=== PATIENT | female | born 1975 | race Caucasian/White ===

== ENCOUNTER 2016-12-20 13:03 | Emergency (ER) | payer BC ==
[2016-12-20] MEDS ORDERED: TRANDATE 20 MG/5 ML SYRINGE IV ONE ×2 (13:34→13:50)
[2016-12-20] MEDS ORDERED: Catapres 0.1 MG PO ONE (13:35)
--- NOTE | 2016-12-20 13:41 | ERPHSYRPT ---
- History of Present Illness Time Seen by Provider: 12/20/16 13:25 Source: patient Exam Limitations: clinical condition Patient Subjective Stated Complaint: PT STATES THAT SHE WAS ON HER WAY TO THE DENTIST STATED THAT SHE "I JUST DIDN'T FEEL RIGHT MY HEAD IS THROBBING,. I FELL LIKE IM GOING TO VOMIT AND HAVE PAIN IN MY SHOULDERS INTO MY LEFT ARM" PT STATES SHE DOES HAVE A HX OF HYPERTENSION BUT NO LONGER TAKES THOSE MEDS AT HOME. Triage Nursing Assessment: PT ALERT WARM AND DRY RESP EASY NON LABORED PT AMBULATED TO ROOM WITHOUT DIFFICULTY. Physician History: PATIENT WITH A HISTORY OF HYPOTHYROIDISM, TYPE 2 DIABETES AND HYPERTENSION COMPLAINS OF CHRONIC HEADACHES FOR MONTHS . PATIENT STATES HER BLOOD PRESSURE WAS ELEVATED AT HOME LAST WEEK, AND AT THE DENTIST OFFICE TODAY. PATIENT STATES THAT SHE HAS BEEN NONCOMPLIANT WITH BLOOD PRESSURE MEDICATION OVER THE PAST YEAR. HAS OCCASIONAL DYSPNEA. DENIES CHEST PAIN, DIAPHORESIS OR PALPITATIONS. Timing/Duration: week(s) Quality: throbbing Head Pain Location: global Severity of Pain-Max: moderate Severity of Pain-Current: moderate Recent Head Trauma: chronic headaches Modifying Factors: Improves With: other (NONCOMPLIANT WITH BLOOD PRESSURE MEDICATION) Associated Symptoms: dizziness, light-headedness Previous symptoms: same symptoms as today Allergies/Adverse Reactions: Iodinated Contrast Media - Oral and [Iodinated Contrast Media - IV Dye] Allergy (Mild, Verified 02/23/15 07:25) Hives acetaminophen [From Darvocet-N] Allergy (Verified 12/20/16 13:09) propoxyphene [From Darvocet-N] Allergy (Verified 12/20/16 13:09) shellfish derived Allergy (Verified 02/23/15 07:25) promethazine HCl [From Phenergan] Adverse Reaction (Unknown, Verified 02/23/15 07:25) syncopal, drops B/P Home Medications: Levothyroxine Sodium [Synthroid] 25 mcg PO DAILY 05/07/13 [History] Metformin HCl [Metformin HCl ER] 500 mg PO DAILY 05/07/13 [History] Venlafaxine HCl ER 75 mg [Effexor XR 75 MG] 75 mg PO DAILY 05/07/13 [ History] Norethindrone-Ethinyl Estrad [Ovcon-35 28 Tablet] 1 tab PO DAILY 02/23/15 [ History] Ethinyl Estradiol/Drospirenone [Ocella 3 mg-0.03 mg Tablet] 12/20/16 [History] Liraglutide [Victoza 2-Ruiz] 1.8 12/20/16 [History] Hx Tetanus, Diphtheria Vaccination/Date Given: Yes Hx Influenza Vaccination/Date Given: No Hx Pneumococcal Vaccination/Date Given: No Immunizations Up to Date: Yes - Review of Systems Constitutional: No Fever, No Chills Eyes: No Symptoms Ears, Nose, & Throat: No Symptoms Respiratory: No Cough, No Dyspnea Cardiac: No Symptoms, No Chest Pain, No Edema, No Syncope Abdominal/Gastrointestinal: No Symptoms, No Abdominal Pain, No Nausea, No Vomiting, No Diarrhea Genitourinary Symptoms: No Symptoms, No Dysuria Musculoskeletal: No Symptoms, No Back Pain, No Neck Pain Skin: No Symptoms, No Rash Neurological: No Symptoms, Dizziness, Headache, No Focal Weakness, No Sensory Changes Psychological: No Symptoms Endocrine: No Symptoms All Other Systems: Reviewed and Negative - Past Medical History Pertinent Past Medical History: Yes Neurological History: No Pertinent History ENT History: No Pertinent History Cardiac History: High Cholesterol Respiratory History: No Pertinent History Endocrine Medical History: Diabetes Type II, Hypothyroidism Musculoskeletal History: No Pertinent History GI Medical History: No Pertinent History History: No Pertinent History Psycho-Social History: No Pertinent History Female Reproductive Disorders: No Pertinent History Other Medical History: HX OF HYPERTENSION,HIGH CHOLESTEROL,TYPE 2 DIABETIC,. PCOS, - Past Surgical History Past Surgical History: Yes Neuro Surgical History: No Pertinent History Cardiac: No Pertinent History Respiratory: No Pertinent History Gastrointestinal: No Pertinent History Genitourinary: No Pertinent History Musculoskeletal: No Pertinent History Female Surgical History: Tubal Ligation, Other Other Surgical History: GALLBLADDER,BREAST REDUCTION,LAPS FOR OVARIAN CYST. - Social History Smoking Status: Current some day smoker Exposure to second hand smoke: Yes Drug Use: none Patient Lives Alone: No - Female History Hx Last Menstrual Period: NOW Hx Now: No - Nursing Vital Signs Nursing Vital Signs: Initial Vital Signs Temperature 98.1 F Temperature Source Oral Pulse Rate 89 Respiratory Rate 18 Blood Pressure [Right Arm] 128/92 Pain Intensity 0 - Physical Exam General Appearance: no apparent distress Eye Exam: PERRL/EOMI Ears, Nose, Throat Exam: normal ENT inspection, moist mucous membranes Neck Exam: normal inspection, supple, full range of motion, No meningismus Respiratory Exam: normal breath sounds, lungs clear Cardiovascular Exam: regular rate/rhythm, normal heart sounds, tachycardia Gastrointestinal/Abdominal Exam: soft, No tenderness, No distention Back Exam: normal inspection, normal range of motion Mental Status Exam: alert, oriented x 3, cooperative clinical documentation nurse Exam: normal speech, PERRL, No facial droop Coordination/Gait Exam: normal cerebellar function Motor/Sensory Exam: no motor deficit, no sensory deficit Skin Exam: normal color, warm, dry, No rash SpO2: 98 Oxygen Delivery: Room Air - Course EKG Interpreted by Me: RATE, Sinus Rhythm, NORMAL AXIS - Radiology Exams Chest X-ray Interpretation: Discussed w/ radiologist, Negative, No Pneumonia - CT Exams Head CT Interpretation: Discussed w/radiologist, No/Intracranial Hemorrhag Ordered Tests: Active Orders 24 hr Category Date Time Status Nutrition Technician STAT Care 12/20/16 13:32 Active EKG-ER Only STAT Care 12/20/16 13:32 Active IV Insertion STAT Care 12/20/16 13:32 Active CHEST 1 VIEW (PORTABLE) Stat Exams 12/20/16 13:32 Completed HEAD WITHOUT CONTRAST [CT] Stat Exams 12/20/16 13:33 Completed BMP Stat Lab 12/20/16 13:55 Completed CBC W DIFF Stat Lab 12/20/16 13:55 Completed TROPONIN Q3H Lab 12/20/16 13:55 Completed TROPONIN Q3H Lab 12/20/16 16:45 Ordered TROPONIN Q3H Lab 12/20/16 19:45 Ordered TROPONIN Q3H Lab 12/20/16 22:45 Ordered TROPONIN Q3H Lab 12/21/16 01:45 Ordered Medication Summary Generic Name Dose Route Start Last Admin Trade Name Freq PRN Reason Stop Dose Admin Sodium Chloride 1,000 mls @ 50 mls/hr 12/20/16 13:45 12/20/16 13:57 Sodium Chloride 0.9% 1000 Ml IV 01/19/17 13:44 50 mls/hr .Q20H ETTA Administration Discontinued Medications Generic Name Dose Route Start Last Admin Trade Name Freq PRN Reason Stop Dose Admin Clonidine 0.1 mg 12/20/16 13:35 12/20/16 13:56 Catapres 0.1 Mg PO 12/20/16 13:36 0.1 mg STAT ONE Administration Clonidine Confirm 12/20/16 13:50 Catapres 0.1 Mg Administered 12/20/16 13:51 Dose 0.1 mg .ROUTE .STK-MED ONE Labetalol HCl 10 mg 12/20/16 13:34 12/20/16 13:57 Trandate 20 Mg/5 Ml Syringe IV 12/20/16 13:35 Not Given STAT ONE Labetalol HCl Confirm 12/20/16 13:50 Trandate 20 Mg/5 Ml Syringe Administered 12/20/16 13:51 Dose 20 mg IV .STK-MED ONE Lab/Rad Data: Laboratory Result Diagrams 12/20/16 13:55 12/20/16 13:55 Laboratory Results 12/20/16 12/20/16 12/20/16 Range/Units 13:55 13:55 13:55 WBC 7.8 (4.0-10.5) K/mm3 RBC 4.63 (4.1-5.4) M/mm3 Hgb 12.0 (12.0-16.0) gm/dl Hct 37.7 (35-47) % MCV 81.4 (78-100) fl MCH 25.9 L (26-32) pg MCHC 31.8 L (32-36) g/dl RDW 16.9 H (11.5-14.0) % Plt Count 390 (150-450) K/mm3 MPV 9.0 (6-9.5) fl Gran % 52.9 (36.0-66.0) % Lymphocytes % 34.6 (24.0-44.0) % Monocytes % 9.3 (0.0-12.0) % Eosinophils % 2.8 (0.00-5.0) % Basophils % 0.4 (0.0-0.4) % Basophils # 0.03 (0-0.4) Sodium 139 (136-145) mEq/L Potassium 3.8 (3.5-5.1) mEq/L Chloride 104 (98-107) mEq/L Carbon Dioxide 25.1 (21-32) mEq/L Anion Gap 13.8 (5-15) MEQ/L BUN 8 L (9-20) mg/dL Creatinine 0.77 (0.55-1.30) mg/dl Estimated GFR > 60 ML/MIN Glucose 94 (70-110) MG/DL Calcium 9.1 (8.5-10.1) mg/dL Troponin I < 0.017 (0.000-0.056) ng/ml - Progress Progress: improved Progress Note: 12/20/16 13:44 PATIENT ADMINISTERED IV FLUIDS NORMAL SALINE AT 50MG/HR, CATAPRES 0.1 MG ORALLY. 12/20/16 THE BLOOD PRESSURE IMPROVED TO BP 129/73 Counseled pt/family regarding: lab results, diagnosis, need for follow-up, rad results - Departure Time of Disposition: 16:00 Departure Disposition: Home Clinical Impression: HYPERTENSION, ACUTE CEPHALGIA Condition: Stable Critical Care Time: No Additional Instructions: BEGIN LISINOPRIL 10MG DAILY UNTIL EVALUATED BY FAMILY PHYSICIAN. CALL OFFICE FOR APPOINTMENT TODAY. Prescriptions: Lisinopril 10 mg [Zestril 10 MG] 10 mg PO DAILY #30 tablet
[2016-12-20] MEDS ORDERED: Sodium Chloride 0.9% 1000 ML 1,000 ML IV SCH (13:45)
[2016-12-20] MEDS ORDERED: Catapres 0.1 MG ONE (13:50)
[2016-12-20] MEDS ORDERED: Sodium Chloride 0.9% 1000 ML 1,000 ML ONE (13:50)
[2016-12-20 14:01] LABS: BASOPHIL % 0.4 % (0.0-0.4); Eosinophil % 2.8 % (0.00-5.0); Granulocytes % 52.9 % (36.0-66.0); Lymphocytes % 34.6 % (24.0-44.0); Mean Cell Volume 81.4 fl (78-100); Mean Corpuscular Hemoglobin 25.9 pg (26-32); Monocytes % 9.3 % (0.0-12.0); Platelet Count 390 K/mm3 (150-450); Red Blood Count 4.63 M/mm3 (4.1-5.4); Red Cell Distribution Width 16.9 % (11.5-14.0); White Blood Count 7.8 K/mm3 (4.0-10.5)
[2016-12-20 14:21] LABS: ANION GAP 13.8 MEQ/L (5-15); BLOOD UREA NITROGEN 8 mg/dL (9-20); CHLORIDE 104 mEq/L (98-107); Carbon Dioxide 25.1 mEq/L (21-32); Glucose 94 MG/DL (70-110); Potassium 3.8 mEq/L (3.5-5.1); SODIUM 139 mEq/L (136-145)
[2016-12-20 14:35] VITALS: PULSE 89
--- NOTE | 2016-12-20 15:18 | XRAY ---
Exam: CT of the head without IV contrast from 12/20/2016. CTDI: 68.81 Comparison: CT of brain without IV contrast from 05/07/2013. Indication: Nausea, bad headache, pain in neck and shoulders, high blood pressure. Technique. Non-IV contrast axial images were obtained through the brain. Reconstructed coronal and sagittal images were created and reviewed. The ventricles are of normal size. No focal mass effect or midline shift is seen. The patel matter-white matter interfaces appear unremarkable. No acute interval cranial parenchymal hemorrhage, subarachnoid hemorrhage, or abnormal extracerebral fluid collection is seen. No low attenuation infarct is seen within a major territorial vascular distribution. The cortical sulci and basilar cisterns appear unremarkable. The calvarium of the skull appears intact. There is some minimal nonspecific mucosal thickening within the inferior aspect of the left ethmoid sinus and posterior sphenoid sinus representing no change. Otherwise, the visualized paranasal sinuses and mastoid air cells appear unremarkable. Impression: 1. No acute intracranial hemorrhage or other acute intracranial process is seen. 2. Minimal chronic mucosal thickening is seen within the left ethmoid sinus and posterior margin of the sphenoid sinus in retrospect. This is unchanged from 05/07/2013. No paranasal sinus air-fluid levels are seen.
--- NOTE | 2016-12-20 15:20 | XRAY ---
Exam: AP upright portable chest film from 1414 hrs. on 12/20/2016. Comparison: None. Indication: Dyspnea, high blood pressure. Findings: The heart size and contour are normal. The grace and mediastinal structures appear unremarkable. The lungs are adequately inflated. No infiltrates, vascular congestion, pneumothorax, or pleural fluid is seen. The bones appear intact. Impression: 1. No acute cardiopulmonary disease is seen.
[2016-12-20 15:55] VITALS: O2SAT 98
[2016-12-20 15:59] VITALS: BP 129/73
== END 2016-12-20 16:13 | disposition home or self-care (01) ==
LOC: ED 13:03
DX: I10 Essential (primary) hypertension (principal); R51 Headache; E03.9 Hypothyroidism, unspecified; E11.9 Type 2 diabetes mellitus without complications; R42 Dizziness and giddiness; Z79.899 Other long term (current) drug therapy; Z79.84 Long term (current) use of oral hypoglycemic drugs
CPT/HCPCS: 36000; 36415; 70450; 71010; 80048; 84484; 85025; 93005; 93041; 96365; 96366; 96374; 99285; A9270-GY

== ENCOUNTER 2019-08-07 13:34 | Emergency (ER) | payer BC ==
--- NOTE | 2019-08-07 13:54 | ERPHSYRPT ---
- History of Present Illness Time Seen by Provider: 08/07/19 13:51 Source: patient, family (male significant other) Exam Limitations: no limitations Patient Subjective Stated Complaint: pt here for chest pain to left side of chest that radiates to left shoulder and neck, she states hurts worse with deep breath, no fever, no sob , she states it was a sudden onset now Triage Nursing Assessment: pt alert, resp easy, grimacing with a cough, chest clear, abd soft, no edema Physician History: Pt is here with c/c of chest pain into the left shoulder and left side of her neck which started earlier today. Pt notes that she has a strong family history of heart disease. She herself has a PMEDHX of HTN, NIDDM and had taken a med up until 4 weeks ago that made her vomit daily. Pt was taken off of this med. Pt notes that she had loose stools daily. Pt does not have a history of low potassium in the past. Pt was not really short of breath. Pt denies having a fever or cough. Timing/Duration: today, day(s) (5) Activities at Onset: none Severity of Dyspnea-Max: moderate Severity of Dyspnea-Current: moderate Possible Cause: no prior episodes, illness exposure Modifying Factors: Improves With: nothing, albuterol inhaler Associated Symptoms: intermittent (pain increases with deep inspiration) International travel in last 2 weeks: No Allergies/Adverse Reactions: Iodinated Contrast Media [Iodinated Contrast Media - IV Dye] Allergy (Mild, Verified 02/23/15 07:25) Hives acetaminophen [From Darvocet-N] Allergy (Verified 12/20/16 13:09) propoxyphene [From Darvocet-N] Allergy (Verified 12/20/16 13:09) shellfish derived Allergy (Verified 02/23/15 07:25) promethazine HCl [From Phenergan] Adverse Reaction (Unknown, Verified 02/23/15 07:25) syncopal, drops B/P Home Medications: Levothyroxine Sodium [Synthroid] 75 mcg PO DAILY 05/07/13 [History] Metformin HCl [Metformin ER Osmotic] 500 mg PO BID 05/07/13 [History] Venlafaxine HCl ER 75 mg [Effexor XR 75 MG] 75 mg PO DAILY 05/07/13 [ History] Norethindrone-Ethinyl Estrad [Ovcon-35 28 Tablet] 1 tab PO DAILY 02/23/15 [ History] Hctz/Triamterene 25/37.5 mg [Maxzide 25MG] 1 tab DAILY 08/07/19 [History] Hx Tetanus, Diphtheria Vaccination/Date Given: Yes Hx Influenza Vaccination/Date Given: Yes Hx Pneumococcal Vaccination/Date Given: No Immunizations Up to Date: Yes - Review of Systems Constitutional: No Symptoms, Fatigue Eyes: No Symptoms Ears, Nose, & Throat: No Symptoms Respiratory: Cough, Dyspnea, Wheezing Cardiac: Chest Pain, Other (heaviness increase in pain with deep inspiration) Abdominal/Gastrointestinal: No Symptoms, No Nausea, No Vomiting Genitourinary Symptoms: No Symptoms, No Dysuria Musculoskeletal: No Symptoms, Other (pain in left upper chest increases wtih deep inspiration) Skin: No Symptoms Neurological: Dizziness (more just weak) Psychological: No Symptoms Endocrine: No Symptoms All Other Systems: Reviewed and Negative - Past Medical History Pertinent Past Medical History: Yes Neurological History: Migraines ENT History: No Pertinent History Cardiac History: High Cholesterol, Hypertension Respiratory History: No Pertinent History Endocrine Medical History: Diabetes Type II, Hypothyroidism Musculoskeletal History: No Pertinent History GI Medical History: No Pertinent History History: No Pertinent History Psycho-Social History: No Pertinent History Female Reproductive Disorders: No Pertinent History Other Medical History: silent migraines, breast reduction in 2001 - Past Surgical History Past Surgical History: Yes Neuro Surgical History: No Pertinent History Cardiac: No Pertinent History Respiratory: No Pertinent History Gastrointestinal: No Pertinent History Genitourinary: No Pertinent History Musculoskeletal: No Pertinent History Female Surgical History: Tubal Ligation, Other Other Surgical History: GALLBLADDER,BREAST REDUCTION,LAPS FOR OVARIAN CYST. - Social History Smoking Status: Never smoker Exposure to second hand smoke: No Drug Use: none Patient Lives Alone: No - Female History Hx Last Menstrual Period: 2 days a ago Hx Now: No - Nursing Vital Signs Nursing Vital Signs: Initial Vital Signs Temperature 98.0 F 08/07/19 13:35 Pulse Rate 109 H 08/07/19 13:35 Respiratory Rate 20 08/07/19 13:35 Blood Pressure 149/91 08/07/19 13:35 O2 Sat by Pulse Oximetry 98 08/07/19 13:35 Pain Scale Pain Intensity 2 - Physical Exam General Appearance: no apparent distress (breathless a bit with talking), mild distress Eye Exam: PERRL/EOMI, eyes nml inspection, No scleral icterus, No pale conjunctivae, No photophobia Ears, Nose, Throat Exam: hearing grossly normal, normal ENT inspection, normal pharynx, No nasal congestion Neck Exam: normal inspection Respiratory Exam: normal breath sounds, wheezing (soft), No crackles/rales, No rhonchi, No stridor Cardiovascular/Chest Exam: normal heart sounds, regular rate/rhythm, normal peripheral pulses, tachycardia (initially), No murmur, No edema Abdominal/Gastrointestinal Exam: soft, normal bowel sounds, No tenderness, No distention, No mass, No guarding, No ecchymosis Rectal Exam: not done Extremity Exam: non-tender, normal range of motion, No limited range of motion, No pedal edema Peripheral Pulses Exam: femoral (R): 0, dorsalis-pedis (R): 2+, dorsalis-pedis ( L): 2+ Neurologic Exam: alert, oriented x 3, cooperative, steel worker II-XII nml as tested Skin Exam: normal color, warm, dry, No rash, No petechiae Lymphatic Exam: No adenopathy SpO2 Interpretation: normal SpO2: 98 O2 Delivery: Room Air Ordered Tests: Active Orders 24 hr Category Date Time Status EKG-ER Only STAT Care 08/07/19 14:05 Active CHEST 2 VIEWS (PA AND LAT) Stat Exams 08/07/19 13:55 Completed BMP Routine Lab 08/07/19 14:10 Completed CBC W DIFF Stat Lab 08/07/19 14:10 Completed CK-Creatinine Phosphokinase Stat Lab 08/07/19 14:10 Completed D-DIMER QUANTITATION Stat Lab 08/07/19 14:10 Completed Lactic Acid Stat Lab 08/07/19 14:28 Completed Lactic Acid Stat Lab 08/07/19 16:46 Completed TROPONIN Q3H Lab 08/07/19 14:10 Completed TROPONIN Q3H Lab 08/07/19 16:49 Completed Medication Summary Discontinued Medications Generic Name Dose Route Start Last Admin Trade Name Freq PRN Reason Stop Dose Admin Aspirin 324 mg 08/07/19 14:05 08/07/19 14:11 Baby Aspirin 81 Mg Chew PO 08/07/19 14:06 324 mg STAT ONE Administration Aspirin Confirm 08/07/19 14:12 Baby Aspirin 81 Mg Chew Administered 08/07/19 14:13 Dose 324 mg .ROUTE .STK-MED ONE Sodium Chloride 1,000 mls @ 999 mls/hr 08/07/19 13:59 08/07/19 14:07 Sodium Chloride 0.9% 1000 Ml IV 08/07/19 14:59 Not Given .Q1H1M STA Potassium Chloride 20 meq in 100 mls @ 50 mls/hr 08/07/19 16:51 08/07/19 17: 02 Potassium Chloride 20 Meq In Water 100ml IV 08/07/19 18:50 50 mls/hr STAT ONE Administration Potassium Chloride Confirm 08/07/19 16:52 Potassium Chloride 20 Meq In Water 100ml Administered 08/07/19 16:53 Dose 100 mls @ ud IV .STK-MED ONE Sodium Chloride 1,000 mls @ 50 mls/hr 08/07/19 17:00 08/07/19 17:02 Sodium Chloride 0.9% 1000 Ml IV 09/06/19 16:59 50 mls/hr .Q20H ETTA Administration Sodium Chloride Confirm 08/07/19 16:59 Sodium Chloride 0.9% 1000 Ml Administered 08/07/19 17:00 Dose 1,000 mls @ ud .ROUTE .STK-MED ONE Ketorolac Tromethamine 30 mg 08/07/19 19:04 08/07/19 19:20 Toradol 30 Mg Injection IV 08/07/19 19:05 30 mg STAT ONE Administration Ketorolac Tromethamine Confirm 08/07/19 19:16 Toradol 30 Mg Injection Administered 08/07/19 19:17 Dose 30 mg .ROUTE .STK-MED ONE Nitroglycerin 0.4 mg 08/07/19 14:05 08/07/19 14:12 Nitrostat 0.4 Mg (Ed) SL 08/07/19 14:06 0.4 mg STAT ONE Administration Nitroglycerin Confirm 08/07/19 14:12 Nitrostat 0.4 Mg (Ed) Administered 08/07/19 14:13 Dose 0.4 mg SL .STK-MED ONE Orphenadrine Citrate 30 mg 08/07/19 19:05 08/07/19 19:20 Norflex 60 Mg/2 Ml IV 08/07/19 19:06 30 mg STAT ONE Administration Orphenadrine Citrate Confirm 08/07/19 19:13 Norflex 60 Mg/2 Ml Administered 08/07/19 19:14 Dose 60 mg .ROUTE .STK-MED ONE Lab/Rad Data: Laboratory Result Diagrams 08/07/19 14:10 08/07/19 14:10 Laboratory Results 08/07/19 08/07/19 08/07/19 Range/Units 16:49 16:46 14:28 WBC (4.0-10.5) K/mm3 RBC (4.1-5.4) M/mm3 Hgb (12.0-16.0) gm/dl Hct (35-47) % MCV (78-100) fl MCH (26-32) pg MCHC (32-36) g/dl RDW (11.5-14.0) % Plt Count (150-450) K/mm3 MPV (6-9.5) fl Gran % (36.0-66.0) % Eos # (Auto) (0-0.5) Absolute Lymphs (auto) (1.0-4.6) Absolute Monos (auto) (0.0-1.3) Lymphocytes % (24.0-44.0) % Monocytes % (0.0-12.0) % Eosinophils % (0.00-5.0) % Basophils % (0.0-0.4) % Absolute Granulocytes (1.4-6.9) Basophils # (0-0.4) D-Dimer (215-500) ng/mL Sodium (137-145) mmol/L Potassium (3.5-5.1) mmol/L Chloride (98-107) mmol/L Carbon Dioxide (22-30) mmol/L Anion Gap (5-15) MEQ/L BUN (7-17) mg/dL Creatinine (0.52-1.04) mg/dL Estimated GFR ML/MIN Glucose (74-106) mg/dL Lactic Acid 1.6 3.2 H (0.4-2.0) Calcium (8.4-10.2) mg/dL Creatine Kinase (30-135) U/L Troponin I < 0.012 (0.000-0.034) ng/mL 08/07/19 08/07/1919 Range/Units 14:10 14:10 14:10 WBC (4.0-10.5) K/mm3 RBC (4.1-5.4) M/mm3 Hgb (12.0-16.0) gm/dl Hct (35-47) % MCV (78-100) fl MCH (26-32) pg MCHC (32-36) g/dl RDW (11.5-14.0) % Plt Count (150-450) K/mm3 MPV (6-9.5) fl Gran % (36.0-66.0) % Eos # (Auto) (0-0.5) Absolute Lymphs (auto) (1.0-4.6) Absolute Monos (auto) (0.0-1.3) Lymphocytes % (24.0-44.0) % Monocytes % (0.0-12.0) % Eosinophils % (0.00-5.0) % Basophils % (0.0-0.4) % Absolute Granulocytes (1.4-6.9) Basophils # (0-0.4) D-Dimer 256 (215-500) ng/mL Sodium 138 (137-145) mmol/L Potassium 2.9 L* (3.5-5.1) mmol/L Chloride 100 (98-107) mmol/L Carbon Dioxide 25 (22-30) mmol/L Anion Gap 15.7 H (5-15) MEQ/L BUN 14 (7-17) mg/dL Creatinine 0.89 (0.52-1.04) mg/dL Estimated GFR > 60.0 ML/MIN Glucose 113 H (74-106) mg/dL Lactic Acid (0.4-2.0) Calcium 9.9 (8.4-10.2) mg/dL Creatine Kinase 34 (30-135) U/L Troponin I < 0.012 (0.000-0.034) ng/mL 08/07/19 Range/Units 14:10 WBC 10.1 (4.0-10.5) K/mm3 RBC 4.08 L (4.1-5.4) M/mm3 Hgb 11.8 L (12.0-16.0) gm/dl Hct 34.6 L (35-47) % MCV 84.8 (78-100) fl MCH 28.9 (26-32) pg MCHC 34.1 (32-36) g/dl RDW 14.0 (11.5-14.0) % Plt Count 344 (150-450) K/mm3 MPV 10.1 H (6-9.5) fl Gran % 56.3 (36.0-66.0) % Eos # (Auto) 0.17 (0-0.5) Absolute Lymphs (auto) 3.45 (1.0-4.6) Absolute Monos (auto) 0.77 (0.0-1.3) Lymphocytes % 34.1 (24.0-44.0) % Monocytes % 7.6 (0.0-12.0) % Eosinophils % 1.7 (0.00-5.0) % Basophils % 0.3 (0.0-0.4) % Absolute Granulocytes 5.70 (1.4-6.9) Basophils # 0.03 (0-0.4) D-Dimer (215-500) ng/mL Sodium (137-145) mmol/L Potassium (3.5-5.1) mmol/L Chloride (98-107) mmol/L Carbon Dioxide (22-30) mmol/L Anion Gap (5-15) MEQ/L BUN (7-17) mg/dL Creatinine (0.52-1.04) mg/dL Estimated GFR ML/MIN Glucose (74-106) mg/dL Lactic Acid (0.4-2.0) Calcium (8.4-10.2) mg/dL Creatine Kinase (30-135) U/L Troponin I (0.000-0.034) ng/mL - Progress Progress: improved Air Movement: good Progress Note: 08/07/19 19:30 Pt with elevated lactic acid to start with but improved on second. Pt did not have any improvement with deep inspiration. Pt CXR within normal limits see report. Labs show a low initial potassium 2.9 but did have 20 meqs to replace. I will also give the pt a muscle relaxant and ketoralac for home if it improves the pain here. - Departure Departure Disposition: Home Clinical Impression: Acute chest wall pain, Hypokalemia Condition: Stable Critical Care Time: No Referrals: MARIE BHATIA [Primary Care Provider] - Instructions: Potassium Chloride Additional Instructions: Pt having pain at the peak of inspiration. Toradol and norflex given IV. Plan of Treatment: Take asprin 325 daily until you follow up with your primary care provider. Prescriptions: Cyclobenzaprine HCl 10 mg [Cyclobenzaprine 10 MG] 10 mg PO Q8HPRN PRN #15 tablet PRN Reason: Muscle Spasms Ketorolac Tromethamine [Toradol] 10 mg PO Q8H PRN PRN #6 tablet PRN Reason: Chest Pain Potassium Chloride [K-Dur] 10 meq PO DAILY 5 Days #5 tab.er.prt
[2019-08-07] MEDS ORDERED: Sodium Chloride 0.9% 1000 ML 1,000 ML IV STA (13:59)
[2019-08-07] MEDS ORDERED: Nitrostat 0.4 MG (ED) SL ONE ×2 (14:05→14:12)
[2019-08-07] MEDS ORDERED: BABY ASPIRIN 81 MG CHEW PO ONE (14:05)
[2019-08-07] MEDS ORDERED: BABY ASPIRIN 81 MG CHEW ONE (14:12)
[2019-08-07 14:24] LABS: BASOPHIL % 0.3 % (0.0-0.4); Basophil (Absolute #) 0.03 (0-0.4); Eosinophil % 1.7 % (0.00-5.0); Eosinophil (Absolute #) 0.17 (0-0.5); Hematocrit 34.6 % (35-47); Hemoglobin 11.8 gm/dl (12.0-16.0); Lymphocyte (Absolute #) 3.45 (1.0-4.6); Lymphocytes % 34.1 % (24.0-44.0); Mean Cell Volume 84.8 fl (78-100); Mean Corpuscular Hemoglobin 28.9 pg (26-32); Mean Corpuscular Hgb Concent. 34.1 g/dl (32-36); Mean Platelet Volume 10.1 fl (6-9.5); Monocyte (Absolute #) 0.77 (0.0-1.3); Monocytes % 7.6 % (0.0-12.0); Neutrophil % 56.3 % (36.0-66.0); Platelet Count 344 K/mm3 (150-450); Red Blood Count 4.08 M/mm3 (4.1-5.4); White Blood Count 10.1 K/mm3 (4.0-10.5)
[2019-08-07 14:31] LABS: Lactic Acid 3.2 (0.4-2.0)
--- NOTE | 2019-08-07 14:41 | XRAY ---
Indication: Chest pain. Comparison: January 16, 2018. PA/lateral chest demonstrates normal heart and lungs. Bony thorax intact. No new/acute findings.
[2019-08-07 14:46] LABS: ANION GAP 15.7 MEQ/L (5-15); BLOOD UREA NITROGEN 14 mg/dL (7-17); CHLORIDE 100 mmol/L (98-107); Calcium 9.9 mg/dL (8.4-10.2); Carbon Dioxide 25 mmol/L (22-30); Creatinine 1 0.89 mg/dL (0.52-1.04); Glucose 113 mg/dL (74-106); SODIUM 138 mmol/L (137-145)
[2019-08-07 14:48] LABS: TROPONIN < 0.012 ng/mL (0.000-0.034)
[2019-08-07 15:30] LABS: Potassium 2.9 mmol/L (3.5-5.1)
[2019-08-07] MEDS ORDERED: POTASSIUM CHLORIDE 20 mEq IN WATER 100ML 20 MEQ/100 ML BAG IV ONE (16:51)
[2019-08-07] MEDS ORDERED: POTASSIUM CHLORIDE 20 mEq IN WATER 100ML 100 ML IV ONE (16:52)
[2019-08-07] MEDS ORDERED: Sodium Chloride 0.9% 1000 ML 1,000 ML ONE (16:59)
[2019-08-07] MEDS ORDERED: Sodium Chloride 0.9% 1000 ML 1,000 ML IV SCH (17:00)
[2019-08-07] MEDS ORDERED: TORAdol 30 mg Injection IV ONE (19:04)
[2019-08-07] MEDS ORDERED: Norflex 60 MG/2 ML IV ONE (19:05)
[2019-08-07] MEDS ORDERED: Norflex 60 MG/2 ML ONE (19:13)
[2019-08-07] MEDS ORDERED: TORAdol 30 mg Injection ONE (19:16)
[2019-08-07 19:56] VITALS: BP 133/85
[2019-08-07 20:01] VITALS: O2SAT 98
[2019-08-07 20:03] VITALS: PULSE 77
== END 2019-08-07 20:15 | disposition home or self-care (01) ==
LOC: ED 13:34
DX: R07.89 Other chest pain (principal); E87.6 Hypokalemia; I10 Essential (primary) hypertension; E11.9 Type 2 diabetes mellitus without complications; Z79.899 Other long term (current) drug therapy; E78.00 Pure hypercholesterolemia, unspecified; E03.9 Hypothyroidism, unspecified
CPT/HCPCS: 36000; 36415; 71046; 80048; 82550; 83605; 84484; 85025; 85379; 93005; 96365; 96374; 96375; 99284; J1885; J2360; J3480; A9270-GY

== ENCOUNTER 2020-03-30 21:20 | Emergency (ER) | payer OTHER ==
--- NOTE | 2020-03-30 21:31 | ERPHSYRPT ---
- History of Present Illness Time Seen by Provider: 03/30/20 21:30 Source: patient, family Exam Limitations: no limitations Physician History: This is a 44-year-old white female who has a history of depression/anxiety and was switched from Effexor to Wellbutrin in the last month. In the last month the patient has complaint of intermittent nausea vomiting episodes. In the last week her symptoms have been worsening. She now feels very weak. She has been followed by nurse practitioners at her primary care physician's office. She is been given intravenous fluids as recently as 2 to 3 days ago. Her symptoms have not resolved or even significantly improved. Patient does not have any chest pain but at times she feels like her heart is racing. She has no abdominal pain she has no diarrhea symptoms. She recently was tested for the COVID 19 virus but the results are pending. Timing/Duration: intermittent, worse, other (Chronic intermittent over a month worse in the last week) Associated Symptoms: nausea, vomiting, shortness of breath, weakness, No abdominal pain, No chest pain, No loss of appetite Allergies/Adverse Reactions: Iodinated Contrast Media [Iodinated Contrast Media - IV Dye] Allergy (Mild, Verified 03/30/20 21:45) Hives acetaminophen [From Darvocet-N] Allergy (Verified 03/30/20 21:45) propoxyphene [From Darvocet-N] Allergy (Verified 03/30/20 21:45) shellfish derived Allergy (Verified 03/30/20 21:45) promethazine HCl [From Phenergan] Adverse Reaction (Unknown, Verified 03/30/20 21:45) syncopal, drops B/P Home Medications: Levothyroxine Sodium [Synthroid] 75 mcg PO DAILY 05/07/13 [History] Venlafaxine HCl ER 75 mg [Effexor XR 75 MG] 75 mg PO DAILY 05/07/13 [History] Norethindrone-Ethinyl Estrad [Ovcon-35 28 Tablet] 1 tab PO DAILY 02/23/15 [History] Hctz/Triamterene 25/37.5 mg [Maxzide 25MG] 1 tab PO DAILY 08/07/19 [History] Potassium Chloride [K-Dur] 10 meq PO DAILY PRN 03/27/20 [History] Semaglutide [Ozempic] 1 mg SQ WEEKLY 03/27/20 [History] Hx Tetanus, Diphtheria Vaccination/Date Given: Yes Hx Influenza Vaccination/Date Given: Yes Hx Pneumococcal Vaccination/Date Given: No Travel Risk - International Travel Have you traveled outside of the country in past 3 weeks: No - Coronavirus Screening Are you exhibiting any of the following symptoms?: Yes Symptoms: Shortness of Breath, Vomiting/Diarrhea Close contact with a COVID-19 positive Pt in past 14-21 Days: No - Review of Systems Constitutional: Weakness Eyes: No Symptoms Ears, Nose, & Throat: No Symptoms Respiratory: Dyspnea (Mild, intermittent) Cardiac: No Symptoms Abdominal/Gastrointestinal: Nausea, Vomiting Genitourinary Symptoms: No Symptoms Musculoskeletal: No Symptoms Skin: No Symptoms Neurological: No Symptoms Psychological: No Symptoms Endocrine: No Symptoms Hematologic/Lymphatic: No Symptoms Immunological/Allergic: No Symptoms All Other Systems: Reviewed and Negative - Past Medical History Pertinent Past Medical History: Yes Neurological History: Migraines ENT History: No Pertinent History Cardiac History: High Cholesterol, Hypertension Respiratory History: No Pertinent History Endocrine Medical History: Diabetes Type II, Hypothyroidism Musculoskeletal History: No Pertinent History GI Medical History: No Pertinent History History: No Pertinent History Psycho-Social History: No Pertinent History Female Reproductive Disorders: No Pertinent History Other Medical History: silent migraines, breast reduction in 2001 " metabolic syndrome" - Past Surgical History Past Surgical History: Yes Neuro Surgical History: No Pertinent History Cardiac: No Pertinent History Respiratory: No Pertinent History Gastrointestinal: Cholecystectomy Genitourinary: No Pertinent History Musculoskeletal: No Pertinent History Female Surgical History: Tubal Ligation, Other Other Surgical History: GALLBLADDER,BREAST REDUCTION,LAPS FOR OVARIAN CYST. - Social History Smoking Status: Never smoker Exposure to second hand smoke: No Drug Use: none Patient Lives Alone: No - Nursing Vital Signs Nursing Vital Signs: Initial Vital Signs Temperature 98.5 F 03/30/20 21:34 Pulse Rate 97 H 03/30/20 21:34 Respiratory Rate 18 03/30/20 21:34 Blood Pressure 141/109 03/30/20 21:34 O2 Sat by Pulse Oximetry 100 03/30/20 21:34 Pain Scale Pain Intensity 0 - Physical Exam General Appearance: no apparent distress, alert, anxiety Eye Exam: PERRL/EOMI, eyes nml inspection Ears, Nose, Throat Exam: normal ENT inspection, moist mucous membranes Neck Exam: normal inspection, non-tender, supple, full range of motion Respiratory Exam: normal breath sounds, lungs clear, airway intact, No chest te nderness, No respiratory distress Cardiovascular Exam: regular rate/rhythm, normal heart sounds, normal peripheral pulses Gastrointestinal/Abdomen Exam: soft, normal bowel sounds, No tenderness Pelvic Exam: not done Rectal Exam: not done Back Exam: normal inspection Extremity Exam: normal inspection, normal range of motion, pelvis stable Neurologic Exam: alert, oriented x 3, cooperative, cadd drafter II-XII nml as tested, nml cerebellar function, nml station & gait, depressed mood/affect Skin Exam: normal color, warm, dry Lymphatic Exam: No adenopathy SpO2 Interpretation: normal O2 Delivery: Room Air Ordered Tests: Active Orders 24 hr Category Date Time Status Greens Keeper STAT Care 03/30/20 21:39 Active Clean Catch Urine Specimen STAT Care 03/30/20 21:41 Active EKG-ER Only STAT Care 03/30/20 21:38 Active IV Insertion STAT Care 03/30/20 21:38 Active Pulse Oximetry (ED) STAT Care 03/30/20 21:38 Active AMYLASE Stat Lab 03/30/20 22:18 Completed CBC W DIFF Stat Lab 03/30/20 22:18 Completed CMP Stat Lab 03/30/20 22:18 Completed CULTURE,URINE Stat Lab 03/30/20 21:55 Received HCG QUALITATIVE,SERUM Stat Lab 03/30/20 22:18 Completed LIPASE Stat Lab 03/30/20 22:18 Completed Lactic Acid Stat Lab 03/30/20 22:01 Completed MAGNESIUM Stat Lab 03/30/20 22:18 Completed NT PRO BNP Stat Lab 03/30/20 22:18 Completed T4 (Thyroxine) Stat Lab 03/30/20 22:18 Completed TROPONIN Q3H Lab 03/30/20 22:18 Completed TROPONIN Q3H Lab 03/31/20 00:45 Ordered TROPONIN Q3H Lab 03/31/20 03:45 Ordered TROPONIN Q3H Lab 03/31/20 06:45 Ordered TROPONIN Q3H Lab 03/31/20 09:45 Ordered TSH [TSH, 3RD Generation] Stat Lab 03/30/20 22:18 Completed UA W/RFX UR CULTURE Stat Lab 03/30/20 21:55 Completed Urine Triage Profile Stat Lab 03/30/20 21:55 Completed Medication Summary Generic Name Dose Route Start Last Admin Trade Name Freq PRN Reason Stop Dose Admin Ceftriaxone Sodium/Dextrose 1 g in 50 mls @ 100 mls/hr 03/30/20 23:06 03/30/20 23:08 Rocephin 1 Gm-D5w 50 Ml Bag IV 03/30/20 23:35 100 mls/hr STAT STA 100 mls/hr Administration Discontinued Medications Generic Name Dose Route Start Last Admin Trade Name Zahra PRN Reason Stop Dose Admin Famotidine 40 mg 03/30/20 21:41 03/30/20 21:57 Pepcid 20 Mg Vial IV 03/30/20 21:42 40 mg STAT ONE Administration Famotidine Confirm 03/30/20 21:55 Pepcid 20 Mg Vial Administered 03/30/20 21:56 Dose 20 mg IV .STK-MED ONE Famotidine Confirm 03/30/20 21:58 Pepcid 20 Mg Vial Administered 03/30/20 21:59 Dose 20 mg IV .STK-MED ONE Sodium Chloride 1,000 mls @ 999 mls/hr 03/30/20 21:38 03/30/20 23:00 Sodium Chloride 0.9% 1000 Ml IV 03/30/20 22:38 Infused .Q1H1M STA Infusion Sodium Chloride Confirm 03/30/20 21:55 Sodium Chloride 0.9% 1000 Ml Administered 03/30/20 21:56 Dose 1,000 mls @ ud .ROUTE .STK-MED ONE Sodium Chloride 1,000 mls @ 999 mls/hr 03/30/20 22:12 03/30/20 23:02 Sodium Chloride 0.9% 1000 Ml IV 03/30/20 23:12 999 mls/hr .Q1H1M STA Administration Sodium Chloride Confirm 03/30/20 23:01 Sodium Chloride 0.9% 1000 Ml Administered 03/30/20 23:02 Dose 1,000 mls @ ud .ROUTE .STK-MED ONE Ceftriaxone Sodium/Dextrose Confirm 03/30/20 23:05 Rocephin 1 Gm-D5w 50 Ml Bag Administered 03/30/20 23:06 Dose 1 g in 50 mls @ ud IV .STK-MED ONE Ondansetron HCl 4 mg 03/30/20 21:40 03/30/20 21:56 Zofran 4 Mg/2 Ml Vial IV 03/30/20 21:41 4 mg STAT ONE Administration Ondansetron HCl Confirm 03/30/20 21:55 Zofran 4 Mg/2 Ml Vial Administered 03/30/20 21:56 Dose 4 mg .ROUTE .STK-MED ONE Lab/Rad Data: Laboratory Result Diagrams 03/30/20 22:18 03/30/20 22:18 Laboratory Results 03/30/20 03/30/20 03/30/20 Range/Units 22:18 22:18 22:18 WBC (4.0-10.5) K/mm3 RBC (4.1-5.4) M/mm3 Hgb (12.0-16.0) gm/dl Hct (35-47) % MCV (78-100) fl MCH (26-32) pg MCHC (32-36) g/dl RDW (11.5-14.0) % Plt Count (150-450) K/mm3 MPV (7.5-11.0) fl Gran % (36.0-66.0) % Eos # (Auto) (0-0.5) Absolute Lymphs (auto) (1.0-4.6) Absolute Monos (auto) (0.0-1.3) Lymphocytes % (24.0-44.0) % Monocytes % (0.0-12.0) % Eosinophils % (0.00-5.0) % Basophils % (0.0-0.4) % Absolute Granulocytes (1.4-6.9) Basophils # (0-0.4) Sodium (137-145) mmol/L Potassium (3.5-5.1) mmol/L Chloride (98-107) mmol/L Carbon Dioxide (22-30) mmol/L Anion Gap (5-15) MEQ/L BUN (7-17) mg/dL Creatinine (0.52-1.04) mg/dL Estimated GFR ML/MIN Glucose (74-106) mg/dL Lactic Acid (0.4-2.0) Calcium (8.4-10.2) mg/dL Magnesium (1.6-2.3) mg/dL Total Bilirubin (0.2-1.3) mg/dL AST (14-36) U/L ALT (0-35) U/L Alkaline Phosphatase (38-126) U/L Troponin I < 0.012 (0.000-0.034) ng/mL NT-Pro-B Natriuret Pep (0-450) pg/mL Serum Total Protein (6.3-8.2) g/dL Albumin (3.5-5.0) g/dL Amylase (30-110) U/L Lipase (23-300) U/L Thyroxine (T4) 21.3 H (5.53-10.96) ug/dL TSH 3rd Generation 2.410 (0.47-4.68) mIU/L Serum , Qual NEGATIVE (Negative) Urine Color (YELLOW) Urine Appearance (CLEAR) Urine pH (5-6) Ur Specific [place] (1.005-1.025) Urine Protein (Negative) Urine Ketones (NEGATIVE) Urine Blood (0-5) Deondre/ul Urine Nitrite (NEGATIVE) Urine Bilirubin (NEGATIVE) Urine Urobilinogen (0-1) mg/dL Ur Leukocyte Esterase (NEGATIVE) Urine WBC (Auto) (0-5) /HPF Urine RBC (Auto) (0-2) /HPF U Hyaline Cast (Auto) (0-2) /LPF U Epithel Cells (Auto) (FEW) /HPF Urine Bacteria (Auto) (NEGATIVE) /HPF Urine Mucus (Auto) (NEGATIVE) /HPF Urine Culture Reflexed (NO) Urine Glucose (NEGATIVE) mg/dL Urine Opiates Level (NEGATIVE) Ur Methadone (NEGATIVE) Urine Barbiturates (NEGATIVE) Ur Phencyclidine (PCP) (NEGATIVE) Urine Amphetamine (NEGATIVE) U Benzodiazepine Level (NEGATIVE) Urine Cocaine (NEGATIVE) Urine Marijuana (THC) (NEGATIVE) 03/30/20 03/30/20 03/30/20 Range/Units 22:18 22:18 22:01 WBC 9.0 (4.0-10.5) K/mm3 RBC 4.77 (4.1-5.4) M/mm3 Hgb 13.6 (12.0-16.0) gm/dl Hct 40.4 (35-47) % MCV 84.7 (78-100) fl MCH 28.5 (26-32) pg MCHC 33.7 (32-36) g/dl RDW 13.0 (11.5-14.0) % Plt Count 376 (150-450) K/mm3 MPV 10.0 (7.5-11.0) fl Gran % 52.4 (36.0-66.0) % Eos # (Auto) 0.13 (0-0.5) Absolute Lymphs (auto) 3.45 (1.0-4.6) Absolute Monos (auto) 0.68 (0.0-1.3) Lymphocytes % 38.3 (24.0-44.0) % Monocytes % 7.5 (0.0-12.0) % Eosinophils % 1.4 (0.00-5.0) % Basophils % 0.4 (0.0-0.4) % Absolute Granulocytes 4.71 (1.4-6.9) Basophils # 0.04 (0-0.4) Sodium 136 L (137-145) mmol/L Potassium 3.3 L (3.5-5.1) mmol/L Chloride 98 (98-107) mmol/L Carbon Dioxide 26 (22-30) mmol/L Anion Gap 14.9 (5-15) MEQ/L BUN 14 (7-17) mg/dL Creatinine 1.53 H (0.52-1.04) mg/dL Estimated GFR 39.2 ML/MIN Glucose 88 (74-106) mg/dL Lactic Acid 0.9 (0.4-2.0) Calcium 10.1 (8.4-10.2) mg/dL Magnesium 1.8 (1.6-2.3) mg/dL Total Bilirubin 0.50 (0.2-1.3) mg/dL AST 20 (14-36) U/L ALT 11 (0-35) U/L Alkaline Phosphatase 100 (38-126) U/L Troponin I (0.000-0.034) ng/mL NT-Pro-B Natriuret Pep 100 (0-450) pg/mL Serum Total Protein 8.0 (6.3-8.2) g/dL Albumin 4.5 (3.5-5.0) g/dL Amylase 82 (30-110) U/L Lipase 159 (23-300) U/L Thyroxine (T4) (5.53-10.96) ug/dL TSH 3rd Generation (0.47-4.68) mIU/L Serum , Qual (Negative) Urine Color (YELLOW) Urine Appearance (CLEAR) Urine pH (5-6) Ur Specific [place] (1.005-1.025) Urine Protein (Negative) Urine Ketones (NEGATIVE) Urine Blood (0-5) Deondre/ul Urine Nitrite (NEGATIVE) Urine Bilirubin (NEGATIVE) Urine Urobilinogen (0-1) mg/dL Ur Leukocyte Esterase (NEGATIVE) Urine WBC (Auto) (0-5) /HPF Urine RBC (Auto) (0-2) /HPF U Hyaline Cast (Auto) (0-2) /LPF U Epithel Cells (Auto) (FEW) /HPF Urine Bacteria (Auto) (NEGATIVE) /HPF Urine Mucus (Auto) (NEGATIVE) /HPF Urine Culture Reflexed (NO) Urine Glucose (NEGATIVE) mg/dL Urine Opiates Level (NEGATIVE) Ur Methadone (NEGATIVE) Urine Barbiturates (NEGATIVE) Ur Phencyclidine (PCP) (NEGATIVE) Urine Amphetamine (NEGATIVE) U Benzodiazepine Level (NEGATIVE) Urine Cocaine (NEGATIVE) Urine Marijuana (THC) (NEGATIVE) 03/30/20 03/30/20 Range/Units 21:55 21:55 WBC (4.0-10.5) K/mm3 RBC (4.1-5.4) M/mm3 Hgb (12.0-16.0) gm/dl Hct (35-47) % MCV (78-100) fl MCH (26-32) pg MCHC (32-36) g/dl RDW (11.5-14.0) % Plt Count (150-450) K/mm3 MPV (7.5-11.0) fl Gran % (36.0-66.0) % Eos # (Auto) (0-0.5) Absolute Lymphs (auto) (1.0-4.6) Absolute Monos (auto) (0.0-1.3) Lymphocytes % (24.0-44.0) % Monocytes % (0.0-12.0) % Eosinophils % (0.00-5.0) % Basophils % (0.0-0.4) % Absolute Granulocytes (1.4-6.9) Basophils # (0-0.4) Sodium (137-145) mmol/L Potassium (3.5-5.1) mmol/L Chloride (98-107) mmol/L Carbon Dioxide (22-30) mmol/L Anion Gap (5-15) MEQ/L BUN (7-17) mg/dL Creatinine (0.52-1.04) mg/dL Estimated GFR ML/MIN Glucose (74-106) mg/dL Lactic Acid (0.4-2.0) Calcium (8.4-10.2) mg/dL Magnesium (1.6-2.3) mg/dL Total Bilirubin (0.2-1.3) mg/dL AST (14-36) U/L ALT (0-35) U/L Alkaline Phosphatase (38-126) U/L Troponin I (0.000-0.034) ng/mL NT-Pro-B Natriuret Pep (0-450) pg/mL Serum Total Protein (6.3-8.2) g/dL Albumin (3.5-5.0) g/dL Amylase (30-110) U/L Lipase (23-300) U/L Thyroxine (T4) (5.53-10.96) ug/dL TSH 3rd Generation (0.47-4.68) mIU/L Serum , Qual (Negative) Urine Color YELLOW (YELLOW) Urine Appearance CLOUDY (CLEAR) Urine pH 5.0 (5-6) Ur Specific [place] 1.019 (1.005-1.025) Urine Protein NEGATIVE (Negative) Urine Ketones NEGATIVE (NEGATIVE) Urine Blood NEGATIVE (0-5) Deondre/ul Urine Nitrite NEGATIVE (NEGATIVE) Urine Bilirubin NEGATIVE (NEGATIVE) Urine Urobilinogen NEGATIVE (0-1) mg/dL Ur Leukocyte Esterase MODERATE (NEGATIVE) Urine WBC (Auto) 16-25 (0-5) /HPF Urine RBC (Auto) 3-5 (0-2) /HPF U Hyaline Cast (Auto) 6-10 (0-2) /LPF U Epithel Cells (Auto) MANY (FEW) /HPF Urine Bacteria (Auto) FEW (NEGATIVE) /HPF Urine Mucus (Auto) SLIGHT (NEGATIVE) /HPF Urine Culture Reflexed YES (NO) Urine Glucose NEGATIVE (NEGATIVE) mg/dL Urine Opiates Level NEGATIVE (NEGATIVE) Ur Methadone NEGATIVE (NEGATIVE) Urine Barbiturates NEGATIVE (NEGATIVE) Ur Phencyclidine (PCP) NEGATIVE (NEGATIVE) Urine Amphetamine NEGATIVE (NEGATIVE) U Benzodiazepine Level NEGATIVE (NEGATIVE) Urine Cocaine NEGATIVE (NEGATIVE) Urine Marijuana (THC) NEGATIVE (NEGATIVE) - Progress Progress: improved, re-examined Counseled pt/family regarding: lab results, diagnosis, need for follow-up - Departure Departure Disposition: Home Clinical Impression: Hyperthyroidism, UTI (urinary tract infection) Condition: Stable Critical Care Time: No Referrals: ALMA DELIA SEE MD [Primary Care Provider] - Additional Instructions: Drink plenty of fluids. Take your medication as prescribed. Follow-up with your primary care providers tomorrow for further management of your diagnoses. Hold your thyroid medication until you speak with your routeman/primary care providers. Prescriptions: Ciprofloxacin [Cipro 500 MG] 500 mg PO BID #14 tablet Ondansetron HCl [Zofran] 4 mg PO TID PRN #10 tablet PRN Reason: Nausea/Vomiting
[2020-03-30] MEDS ORDERED: Sodium Chloride 0.9% 1000 ML 1,000 ML IV STA ×2 (21:38→22:12)
[2020-03-30] MEDS ORDERED: Zofran 4 MG/2 ML VIAL IV ONE (21:40)
[2020-03-30] MEDS ORDERED: Pepcid 20 MG VIAL IV ONE ×3 (21:41→21:58)
[2020-03-30] MEDS ORDERED: Sodium Chloride 0.9% 1000 ML 1,000 ML ONE ×2 (21:55→23:01)
[2020-03-30] MEDS ORDERED: Zofran 4 MG/2 ML VIAL ONE (21:55)
[2020-03-30 22:15] VITALS: O2SAT 100
[2020-03-30 22:20] LABS: Absolute Neutrophil Ct (ANC) 4.71 (1.4-6.9); BASOPHIL % 0.4 % (0.0-0.4); Basophil (Absolute #) 0.04 (0-0.4); Eosinophil % 1.4 % (0.00-5.0); Eosinophil (Absolute #) 0.13 (0-0.5); Hematocrit 40.4 % (35-47); Hemoglobin 13.6 gm/dl (12.0-16.0); Lymphocyte (Absolute #) 3.45 (1.0-4.6); Lymphocytes % 38.3 % (24.0-44.0); Mean Cell Volume 84.7 fl (78-100); Mean Corpuscular Hemoglobin 28.5 pg (26-32); Mean Corpuscular Hgb Concent. 33.7 g/dl (32-36); Monocyte (Absolute #) 0.68 (0.0-1.3); Monocytes % 7.5 % (0.0-12.0); Neutrophil % 52.4 % (36.0-66.0); Platelet Count 376 K/mm3 (150-450); Red Blood Count 4.77 M/mm3 (4.1-5.4)
[2020-03-30 22:22] LABS: Amphetamine,Urine NEGATIVE (NEGATIVE); Barbiturate,Urine NEGATIVE (NEGATIVE); Benzodiazepine,Urine NEGATIVE (NEGATIVE); Cocaine,Urine NEGATIVE (NEGATIVE); Methadone,Urine NEGATIVE (NEGATIVE); Opiate,Urine NEGATIVE (NEGATIVE); PCP,Urine NEGATIVE (NEGATIVE); THC,Urine NEGATIVE (NEGATIVE)
[2020-03-30 22:23] LABS: Appearance CLOUDY (CLEAR); Bacteria FEW /HPF (NEGATIVE); Bilirubin NEGATIVE (NEGATIVE); Blood NEGATIVE Ery/ul (0-5); Epithelial Cells MANY /HPF (FEW); Glucose NEGATIVE (NEGATIVE); Ketones NEGATIVE (NEGATIVE); Leukocyte Esterase MODERATE (NEGATIVE); Mucus SLIGHT /HPF (NEGATIVE); Nitrite NEGATIVE (NEGATIVE); Protein,Urine Dip NEGATIVE (Negative); Specific Gravity 1.019 (1.005-1.025); Urobilinogen NEGATIVE mg/dL (0-1)
[2020-03-30 22:36] LABS: ALBUMIN 4.5 g/dL (3.5-5.0); ANION GAP 14.9 MEQ/L (5-15); BILIRUBIN,TOTAL 0.5 mg/dL (0.2-1.3); Calcium 10.1 mg/dL (8.4-10.2); Creatinine 1 1.53 mg/dL (0.52-1.04); MAGNESIUM 1.8 mg/dL (1.6-2.3); Potassium 3.3 mmol/L (3.5-5.1)
[2020-03-30 22:59] LABS: T4 (Thyroxine) 21.3 ug/dL (5.53-10.96); TSH, 3RD Generation 2.41 mIU/L (0.47-4.68)
[2020-03-30] MEDS ORDERED: ROCEPHIN 1 Gm-D5w 50 ml Bag** 1 G/50 ML IVPB IV ONE (23:05)
[2020-03-30] MEDS ORDERED: ROCEPHIN 1 Gm-D5w 50 ml Bag** 1 G/50 ML IVPB IV STA (23:06)
[2020-03-30 23:10] VITALS: BP 147/84; PULSE 69
== END 2020-03-31 00:28 | disposition home or self-care (01) ==
LOC: ED 21:20
DX: E05.90 Thyrotoxicosis, unspecified without thyrotoxic crisis or storm (principal); N39.0 Urinary tract infection, site not specified
CPT/HCPCS: 36000; 36415; 80053; 80307; 81001; 81025; 82150; 83605; 83690; 83735; 83880; 84436; 84443; 84484; 85025; 87086; 93005; 93041; 94760; 96360; 96361; 96365; 96374; 96375; 99285; J0696; J2405

== ENCOUNTER 2020-12-17 11:30 | Emergency (ER) | payer OTHER ==
[2020-12-17] MEDS ORDERED: TORAdol 30 mg Injection IV ONE (11:35)
[2020-12-17] MEDS ORDERED: Zofran 4 MG/2 ML VIAL IV ONE (11:35)
[2020-12-17] MEDS ORDERED: Sodium Chloride 0.9% 1000 ML 1,000 ML IV STA (11:35)
--- NOTE | 2020-12-17 11:42 | ERPHSYRPT ---
- History of Present Illness Allergies/Adverse Reactions: Iodinated Contrast Media [Iodinated Contrast Media - IV Dye] Allergy (Mild, Verified 03/30/20 21:45) Hives acetaminophen [From Darvocet-N] Allergy (Verified 03/30/20 21:45) propoxyphene [From Darvocet-N] Allergy (Verified 03/30/20 21:45) shellfish derived Allergy (Verified 03/30/20 21:45) promethazine HCl [From Phenergan] Adverse Reaction (Unknown, Verified 03/30/20 21:45) syncopal, drops B/P Home Medications: Levothyroxine Sodium [Synthroid] 75 mcg PO DAILY 05/07/13 [History] Venlafaxine HCl ER 75 mg [Effexor XR 75 MG] 75 mg PO DAILY 05/07/13 [History] Norethindrone-Ethinyl Estrad [Ovcon-35 28 Tablet] 1 tab PO DAILY 02/23/15 [History] Hctz/Triamterene 25/37.5 mg [Maxzide 25MG] 1 tab PO DAILY 08/07/19 [History] Potassium Chloride [K-Dur] 10 meq PO DAILY PRN 03/27/20 [History] Semaglutide [Ozempic] 1 mg SQ WEEKLY 03/27/20 [History] Hx Tetanus, Diphtheria Vaccination/Date Given: Yes Hx Influenza Vaccination/Date Given: Yes Hx Pneumococcal Vaccination/Date Given: No - Review of Systems Constitutional: No Symptoms, No Fever, No Chills Eyes: No Symptoms Ears, Nose, & Throat: No Symptoms Respiratory: No Symptoms, No Cough, No Dyspnea Cardiac: No Symptoms, No Chest Pain, No Edema, No Syncope Abdominal/Gastrointestinal: No Symptoms, No Abdominal Pain, No Nausea, No Vomiting, No Diarrhea Genitourinary Symptoms: No Symptoms, No Dysuria Musculoskeletal: No Symptoms, No Back Pain, No Neck Pain Skin: No Symptoms, No Rash Neurological: No Symptoms, No Dizziness, No Focal Weakness, No Sensory Changes Psychological: No Symptoms Endocrine: No Symptoms Hematologic/Lymphatic: No Symptoms Immunological/Allergic: No Symptoms All Other Systems: Reviewed and Negative - Past Medical History Pertinent Past Medical History: Yes Neurological History: Migraines ENT History: No Pertinent History Cardiac History: High Cholesterol, Hypertension Respiratory History: No Pertinent History Endocrine Medical History: Diabetes Type II, Hypothyroidism Musculoskeletal History: No Pertinent History GI Medical History: No Pertinent History History: No Pertinent History Psycho-Social History: No Pertinent History Female Reproductive Disorders: No Pertinent History Other Medical History: silent migraines, breast reduction in 2001 " metabolic syndrome" - Past Surgical History Past Surgical History: Yes Neuro Surgical History: No Pertinent History Cardiac: No Pertinent History Respiratory: No Pertinent History Gastrointestinal: Cholecystectomy Genitourinary: No Pertinent History Musculoskeletal: No Pertinent History Female Surgical History: Tubal Ligation, Other Other Surgical History: GALLBLADDER,BREAST REDUCTION,LAPS FOR OVARIAN CYST. - Social History Smoking Status: Never smoker Exposure to second hand smoke: No Drug Use: none Patient Lives Alone: No - Physical Exam General Appearance: no apparent distress, alert Eye Exam: PERRL/EOMI, eyes nml inspection Ears, Nose, Throat Exam: normal ENT inspection, pharynx normal, moist mucous membranes Neck Exam: normal inspection, non-tender, supple, full range of motion Respiratory Exam: normal breath sounds, lungs clear, No respiratory distress Cardiovascular Exam: regular rate/rhythm, normal heart sounds Gastrointestinal/Abdomen Exam: soft, No tenderness, No mass Back Exam: normal inspection, normal range of motion, No CVA tenderness, No vertebral tenderness Extremity Exam: normal inspection, normal range of motion, pelvis stable Neurologic Exam: alert, oriented x 3, cooperative, normal mood/affect, nml cerebellar function, sensation nml, No motor deficits Skin Exam: normal color, warm, dry Ordered Tests: Active Orders 24 hr Category Date Time Status IV Insertion STAT Care 12/17/20 11:35 Active ABDOMEN AND PELVIS W CONTRAST [CT] Stat Exams 12/17/20 11:36 Ordered CBC W DIFF Stat Lab 12/17/20 11:35 Ordered CMP Stat Lab 12/17/20 11:35 Ordered HCG,QUALITATIVE URINE Stat Lab 12/17/20 11:36 Ordered Medication Summary Generic Name Dose Route Start Last Admin Trade Name Freq PRN Reason Stop Dose Admin Sodium Chloride 1,000 mls @ 999 mls/hr 12/17/20 11:35 Sodium Chloride 0.9% 1000 Ml IV 12/17/20 12:35 .Q1H1M STA Ketorolac Tromethamine 30 mg 12/17/20 11:35 Toradol 30 Mg Injection IV 12/17/20 11:36 STAT ONE Ondansetron HCl 4 mg 12/17/20 11:35 Zofran 4 Mg/2 Ml Vial IV 12/17/20 11:36 STAT ONE - Departure Referrals: MARIE BHATIA [Primary Care Provider] -
[2020-12-17] MEDS ORDERED: Sodium Chloride 0.9% 1000 ML 1,000 ML ONE (12:05)
--- NOTE | 2020-12-17 12:28 | ERPHSYRPT ---
- History of Present Illness Time Seen by Provider: 12/17/20 11:55 Source: patient Patient Subjective Stated Complaint: Pt states "I am in stage III renal failure and anytime I get sick I get dehydrated. I had the second covid shot on monday and I have been feeling horrible ever since." Triage Nursing Assessment: Pt presented alert and oriented X 3, skin wpd Pt ambulates with an upright steady gait, able to speak in clear full sentences pt in no apparent respiratory distress. Physician History: Patient is a 45-year-old female presents to our emergency department with complaints of generalized weakness. She has a history of stage III renal disease. Patient had her second Covid shot on Monday. Since then she has been feeling unwell. Patient feeling dehydrated. In light of patient's history of kidney diminished kidney function the patient decided to come to our ED for an evaluation. No associated nausea or vomiting. No diarrhea. No rash. No fever. No diaphoresis. Patient has no chest pain. Symptoms are mild in intensity. No specific worsening improving factors. Patient voices no other complaints or concerns at this time. Timing/Duration: day(s) (2 days) Severity: moderate Modifying Factors: Improves With: nothing Associated Symptoms: denies symptoms Allergies/Adverse Reactions: Iodinated Contrast Media [Iodinated Contrast Media - IV Dye] Allergy (Mild, Verified 03/30/20 21:45) Hives acetaminophen [From Darvocet-N] Allergy (Verified 03/30/20 21:45) propoxyphene [From Darvocet-N] Allergy (Verified 03/30/20 21:45) shellfish derived Allergy (Verified 03/30/20 21:45) promethazine HCl [From Phenergan] Adverse Reaction (Unknown, Verified 03/30/20 21:45) syncopal, drops B/P Home Medications: Levothyroxine Sodium [Synthroid] 75 mcg PO DAILY 05/07/13 [History] Venlafaxine HCl ER 75 mg [Effexor XR 75 MG] 75 mg PO DAILY 05/07/13 [History] Norethindrone-Ethinyl Estrad [Ovcon-35 28 Tablet] 1 tab PO DAILY 02/23/15 [History] Hctz/Triamterene 25/37.5 mg [Maxzide 25MG] 1 tab PO DAILY 08/07/19 [History] Semaglutide [Ozempic] 1 mg SQ WEEKLY 03/27/20 [History] Hx Tetanus, Diphtheria Vaccination/Date Given: Yes Hx Influenza Vaccination/Date Given: Yes Hx Pneumococcal Vaccination/Date Given: No Immunizations Up to Date: Yes Travel Risk - International Travel Have you traveled outside of the country in past 3 weeks: No - Coronavirus Screening Are you exhibiting any of the following symptoms?: No Close contact with a COVID-19 positive Pt in past 14-21 Days: No - Vaccine Status Have you recieved a Covid-19 vaccination: Yes Title Agent: Moderna - Vaccination Dates Date of 2cond Vaccination (if applicable): 12/15/2020 - Review of Systems Constitutional: No Symptoms, No Fever, No Chills Eyes: No Symptoms Ears, Nose, & Throat: No Symptoms Respiratory: No Symptoms, No Cough, No Dyspnea Cardiac: No Symptoms, No Chest Pain, No Edema, No Syncope Abdominal/Gastrointestinal: No Symptoms, No Abdominal Pain, No Nausea, No Vomiting, No Diarrhea Genitourinary Symptoms: No Symptoms, No Dysuria Musculoskeletal: No Symptoms, No Back Pain, No Neck Pain Skin: No Symptoms, No Rash Neurological: No Symptoms, No Dizziness, No Focal Weakness, No Sensory Changes Psychological: No Symptoms Endocrine: No Symptoms Hematologic/Lymphatic: No Symptoms Immunological/Allergic: No Symptoms All Other Systems: Reviewed and Negative - Past Medical History Pertinent Past Medical History: Yes Neurological History: Migraines ENT History: No Pertinent History Cardiac History: High Cholesterol, Hypertension Respiratory History: No Pertinent History Endocrine Medical History: Diabetes Type II, Hypothyroidism Musculoskeletal History: No Pertinent History GI Medical History: No Pertinent History History: No Pertinent History Psycho-Social History: No Pertinent History Female Reproductive Disorders: No Pertinent History Other Medical History: silent migraines, breast reduction in 2001 " metabolic syndrome" - Past Surgical History Past Surgical History: Yes Neuro Surgical History: No Pertinent History Cardiac: No Pertinent History Respiratory: No Pertinent History Gastrointestinal: Cholecystectomy Genitourinary: No Pertinent History Musculoskeletal: No Pertinent History Female Surgical History: Tubal Ligation, Other Other Surgical History: GALLBLADDER,BREAST REDUCTION,LAPS FOR OVARIAN CYST. - Social History Smoking Status: Former smoker Exposure to second hand smoke: No Drug Use: none Patient Lives Alone: No - Female History Hx Last Menstrual Period: 12/12/2020 Hx Now: No - Nursing Vital Signs Nursing Vital Signs: Initial Vital Signs Temperature 97.8 F 12/17/20 11:40 Pulse Rate 104 H 12/17/20 11:40 Respiratory Rate 22 12/17/20 11:40 Blood Pressure 112/84 12/17/20 11:40 O2 Sat by Pulse Oximetry 99 12/17/20 11:40 Pain Scale Pain Intensity 0 - Physical Exam General Appearance: no apparent distress, alert Eye Exam: PERRL/EOMI, eyes nml inspection Ears, Nose, Throat Exam: normal ENT inspection, TMs normal, pharynx normal, moist mucous membranes Neck Exam: normal inspection, non-tender, supple, full range of motion Respiratory Exam: normal breath sounds, lungs clear, No respiratory distress Cardiovascular Exam: regular rate/rhythm, normal heart sounds, normal peripheral pulses Gastrointestinal/Abdomen Exam: soft, normal bowel sounds, No tenderness, No mass Back Exam: normal inspection, normal range of motion, No CVA tenderness, No vertebral tenderness Extremity Exam: normal inspection, normal range of motion, pelvis stable Neurologic Exam: alert, oriented x 3, cooperative, normal mood/affect, nml cerebellar function, nml station & gait, sensation nml, No motor deficits Skin Exam: normal color, warm, dry, No rash Lymphatic Exam: No adenopathy SpO2 Interpretation: normal SpO2: 99 O2 Delivery: Room Air - Course Nursing assessment & vital signs reviewed: Yes Ordered Tests: Active Orders 24 hr Category Date Time Status IV Insertion STAT Care 12/17/20 11:35 Active CBC W DIFF Stat Lab 12/17/20 12:15 Completed CMP Stat Lab 12/17/20 12:15 Completed HCG,QUALITATIVE URINE Stat Lab 12/17/20 11:40 Completed UA W/RFX UR CULTURE Stat Lab 12/17/20 13:47 Ordered Medication Summary Discontinued Medications Generic Name Dose Route Start Last Admin Trade Name Freq PRN Reason Stop Dose Admin Sodium Chloride 1,000 mls @ 999 mls/hr 12/17/20 11:35 12/17/20 13:20 Sodium Chloride 0.9% 1000 Ml IV 12/17/20 12:35 Infused .Q1H1M STA Infusion Sodium Chloride Confirm 12/17/20 12:05 Sodium Chloride 0.9% 1000 Ml Administered 12/17/20 12:06 Dose 1,000 mls @ ud .ROUTE .STK-MED ONE Ketorolac Tromethamine 30 mg 12/17/20 11:35 12/17/20 12:24 Toradol 30 Mg Injection IV 12/17/20 11:36 Not Given STAT ONE Ondansetron HCl 4 mg 12/17/20 11:35 12/17/20 12:24 Zofran 4 Mg/2 Ml Vial IV 12/17/20 11:36 Not Given STAT ONE Lab/Rad Data: Laboratory Result Diagrams 12/17/20 12:15 12/17/20 12:15 Laboratory Results 12/17/20 12/17/20 12/17/20 Range/Units 12:15 12:15 11:40 WBC 5.2 (4.0-10.5) K/mm3 RBC 4.59 (4.1-5.4) M/mm3 Hgb 12.5 (12.0-16.0) gm/dl Hct 38.8 (35-47) % MCV 84.5 (78-100) fl MCH 27.2 (26-32) pg MCHC 32.2 (32-36) g/dl RDW 13.9 (11.5-14.0) % Plt Count 297 (150-450) K/mm3 MPV 9.8 (7.5-11.0) fl Gran % 63.4 (36.0-66.0) % Eos # (Auto) 0.16 (0-0.5) Absolute Lymphs (auto) 1.28 (1.0-4.6) Absolute Monos (auto) 0.45 (0.0-1.3) Lymphocytes % 24.5 (24.0-44.0) % Monocytes % 8.6 (0.0-12.0) % Eosinophils % 3.1 (0.00-5.0) % Basophils % 0.4 (0.0-0.4) % Absolute Granulocytes 3.32 (1.4-6.9) Basophils # 0.02 (0-0.4) Sodium 135 L (137-145) mmol/L Potassium 3.6 (3.5-5.1) mmol/L Chloride 97 L (98-107) mmol/L Carbon Dioxide 28 (22-30) mmol/L Anion Gap 13.0 (5-15) MEQ/L BUN 15 (7-17) mg/dL Creatinine 1.03 (0.52-1.04) mg/dL Estimated GFR > 60.0 ML/MIN Glucose 97 (74-106) mg/dL Calcium 9.9 (8.4-10.2) mg/dL Total Bilirubin 0.20 (0.2-1.3) mg/dL AST 35 (14-36) U/L ALT 19 (0-35) U/L Alkaline Phosphatase 83 (38-126) U/L Serum Total Protein 7.9 (6.3-8.2) g/dL Albumin 4.3 (3.5-5.0) g/dL Urine HCG, Qual NEGATIVE (Negative) - Progress Progress: improved Progress Note: Patient reassessed. She feels well. Sodium and chloride mildly low. Patient received normal saline. Kidney function appears to be within normal limits. Vital stable. Patient feels well. Patient denies pain. Patient states he is ready for discharge. Patient requesting urinalysis. However she has not urinated for us she will urinate prior to her discharge. She does not want to wait. Patient states that she will be home and that we may call her once her urinalysis results. If positive for UTI we will call in an antibiotic. Patient voices no other complaints or concerns at this time. She agrees to follow-up with her primary care doctor within 48 hours for reevaluation. 12/17/20 13:45 Counseled pt/family regarding: lab results, diagnosis, need for follow-up - Departure Departure Disposition: Home Clinical Impression: Generalized weakness, Vaccination complication Condition: Stable Critical Care Time: No Referrals: MARIE BHATIA [Primary Care Provider] - Additional Instructions: Discharge/Care Plan ANUJA CHONG was seen on 12/17/20 in the Emergency Room. The patient was counseled regarding Diagnosis,Lab results, Imaging studies, need for follow up and when to return to the Emergency Room. Prescriptions given: Discharge Note I have spoken with the patient and/or caregivers. I have explained the patient's condition, diagnosis and treatment plan based on the information available to me at this time. I have answered the patient's and/or caregiver's questions and addressed any concerns. The patient and/or caregivers have as good understanding of the patient's diagnosis, condition and treatment plan as can be expected at this point. The vital signs have been stable. The patient's condition is stable and appropriate for discharge from the emergency department. The patient will pursue further outpatient evaluation with the primary care physician or other designated or consulting physician as outlined in the discharge instructions. The patient and/or caregivers are agreeable to this plan of care and follow-up instructions have been explained in detail. The patient and/or caregivers have received these instruction. The patient/and or caregivers are aware that any significant change in condition or worsening of symptoms should prompt an immediate return to this or the closest emergency department or call 911.
[2020-12-17 12:53] LABS: Absolute Neutrophil Ct (ANC) 3.32 (1.4-6.9); BASOPHIL % 0.4 % (0.0-0.4); Basophil (Absolute #) 0.02 (0-0.4); Eosinophil % 3.1 % (0.00-5.0); Eosinophil (Absolute #) 0.16 (0-0.5); Hematocrit 38.8 % (35-47); Hemoglobin 12.5 gm/dl (12.0-16.0); Lymphocyte (Absolute #) 1.28 (1.0-4.6); Lymphocytes % 24.5 % (24.0-44.0); Mean Cell Volume 84.5 fl (78-100); Mean Corpuscular Hemoglobin 27.2 pg (26-32); Mean Corpuscular Hgb Concent. 32.2 g/dl (32-36); Mean Platelet Volume 9.8 fl (7.5-11.0); Monocyte (Absolute #) 0.45 (0.0-1.3); Monocytes % 8.6 % (0.0-12.0); Neutrophil % 63.4 % (36.0-66.0); Platelet Count 297 K/mm3 (150-450); Red Blood Count 4.59 M/mm3 (4.1-5.4); Red Cell Distribution Width 13.9 % (11.5-14.0); White Blood Count 5.2 K/mm3 (4.0-10.5)
[2020-12-17 13:04] LABS: ALBUMIN 4.3 g/dL (3.5-5.0); ALKALINE PHOSPHATASE 83 U/L (38-126); BLOOD UREA NITROGEN 15 mg/dL (7-17); CHLORIDE 97 mmol/L (98-107); Calcium 9.9 mg/dL (8.4-10.2); Carbon Dioxide 28 mmol/L (22-30); Creatinine 1 1.03 mg/dL (0.52-1.04); EST GLOMERULAR FILTRATION RATE > 60.0 ML/MIN; Glucose 97 mg/dL (74-106); Potassium 3.6 mmol/L (3.5-5.1); SGOT/AST 35 U/L (14-36); SGPT/ALT 19 U/L (0-35); SODIUM 135 mmol/L (137-145); Total Protein 7.9 g/dL (6.3-8.2)
[2020-12-17 13:21] VITALS: BP 110/60; PULSE 76
[2020-12-17 13:47] VITALS: O2SAT 99
[2020-12-17 13:49] LABS: Appearance SLIGHTLY CLOUDY (CLEAR); Bacteria RARE /HPF (NEGATIVE); Bilirubin NEGATIVE (NEGATIVE); Blood NEGATIVE Ery/ul (0-5); Epithelial Cells FEW /HPF (FEW); Glucose NEGATIVE (NEGATIVE); Ketones TRACE (NEGATIVE); Leukocyte Esterase LARGE (NEGATIVE); Nitrite NEGATIVE (NEGATIVE); Protein,Urine Dip NEGATIVE (Negative); RBC 0-2 /HPF (0-2); Specific Gravity 1.014 (1.005-1.025); Urobilinogen NEGATIVE mg/dL (0-1)
== END 2020-12-17 13:50 | disposition home or self-care (01) ==
LOC: ED 11:30
DX: R53.1 Weakness (principal); I12.9 Hypertensive chronic kidney disease with stage 1 through stage 4 chronic kidney disease, or unspecified chronic kidney disease; N18.30 Chronic kidney disease, stage 3 unspecified; E03.9 Hypothyroidism, unspecified; E11.9 Type 2 diabetes mellitus without complications; T50.B95A Adverse effect of other viral vaccines, initial encounter
CPT/HCPCS: 36000; 36415; 80053; 81001; 84703; 85025; 87086; 96360; 99284

== ENCOUNTER 2021-05-20 12:37 | Emergency (ER) | payer OTHER ==
[2021-05-20] MEDS ORDERED: Sodium Chloride 0.9% 1000 ML 1,000 ML IV STA (13:44)
--- NOTE | 2021-05-20 13:51 | ERPHSYRPT ---
- History of Present Illness Time Seen by Provider: 05/20/21 12:42 Source: patient Exam Limitations: no limitations Physician History: 45 years old female with history of anxiety, metabolic syndrome, hypertension presented in the ER with chief complaint of needing syncopal episode prior to arrival. Patient reports she was feeling as if she needs to go have a bowel mov ement. She sat on the commode and started to feel dizzy lightheaded, noticed her heartrate Was in 50s and feeling as if she was going to pass out. She lied on the floor without any complete loss of consciousness. Later on she started to feel really weak although were, have a couple of episodes of loose stools without abdominal pain, nausea but no vomiting. Reports having diarrhea episodes since yesterday. Currently feels fatigued tired with lack of energy. Denies any focal numbness tingling or weakness. Reports having similar symptoms few months ago. Timing/Duration: today, resolved prior to arrival, sudden, improved Severity: moderate Associated Symptoms: nausea, weakness, No abdominal pain, No shortness of breath, No diaphoresis, No cough, No chills, No chest pain, No fever, No headaches, No loss of appetite, No malaise Allergies/Adverse Reactions: Iodinated Contrast Media [Iodinated Contrast Media - IV Dye] Allergy (Mild, Verified 05/20/21 13:40) Hives acetaminophen [From Darvocet-N] Allergy (Verified 05/20/21 13:40) propoxyphene [From Darvocet-N] Allergy (Verified 05/20/21 13:40) shellfish derived Allergy (Verified 05/20/21 13:40) promethazine HCl [From Phenergan] Adverse Reaction (Unknown, Verified 05/20/21 13:40) syncopal, drops B/P Home Medications: Levothyroxine Sodium [Synthroid] 75 mcg PO DAILY 05/07/13 [History] Venlafaxine HCl ER 75 mg [Effexor XR 75 MG] 75 mg PO DAILY 05/07/13 [History] Norethindrone-Ethinyl Estrad [Ovcon-35 28 Tablet] 1 tab PO DAILY 02/23/15 [History] Hctz/Triamterene 25/37.5 mg [Maxzide 25MG] 1 tab PO DAILY 08/07/19 [History] Semaglutide [Ozempic] 1 mg SQ WEEKLY 03/27/20 [History] Hx Tetanus, Diphtheria Vaccination/Date Given: Yes Hx Influenza Vaccination/Date Given: Yes Hx Pneumococcal Vaccination/Date Given: No Travel Risk - Vaccine Status Have you recieved a Covid-19 vaccination: Yes [employer] Internship: Moderna - Vaccination Dates Date of 2cond Vaccination (if applicable): 12/15/2020 - Review of Systems Constitutional: Fatigue, Weakness Eyes: No Symptoms Ears, Nose, & Throat: No Symptoms Respiratory: No Symptoms Cardiac: No Symptoms Abdominal/Gastrointestinal: Diarrhea Genitourinary Symptoms: No Symptoms Musculoskeletal: No Symptoms Skin: No Symptoms Neurological: No Symptoms Psychological: Anxiety Endocrine: No Symptoms Hematologic/Lymphatic: No Symptoms Immunological/Allergic: No Symptoms - Past Medical History Pertinent Past Medical History: Yes Neurological History: Migraines ENT History: No Pertinent History Cardiac History: High Cholesterol, Hypertension Respiratory History: No Pertinent History Endocrine Medical History: Diabetes Type II, Hypothyroidism Musculoskeletal History: No Pertinent History GI Medical History: No Pertinent History History: No Pertinent History Psycho-Social History: No Pertinent History Female Reproductive Disorders: No Pertinent History Other Medical History: silent migraines, breast reduction in 2001 " metabolic syndrome" - Past Surgical History Past Surgical History: Yes Neuro Surgical History: No Pertinent History Cardiac: No Pertinent History Respiratory: No Pertinent History Gastrointestinal: Cholecystectomy Genitourinary: No Pertinent History Musculoskeletal: No Pertinent History Female Surgical History: Tubal Ligation, Other Other Surgical History: GALLBLADDER,BREAST REDUCTION,LAPS FOR OVARIAN CYST. - Social History Smoking Status: Former smoker Exposure to second hand smoke: No Drug Use: none Patient Lives Alone: No - Female History Hx Now: (UNKN) - Nursing Vital Signs Nursing Vital Signs: Initial Vital Signs Temperature 97.5 F 05/20/21 13:41 Pulse Rate 76 05/20/21 13:41 Respiratory Rate 18 05/20/21 13:41 Blood Pressure 112/80 05/20/21 13:41 O2 Sat by Pulse Oximetry 99 05/20/21 13:41 Pain Scale Pain Intensity 0 - Physical Exam General Appearance: no apparent distress, alert, anxiety Eye Exam: PERRL/EOMI, eyes nml inspection Ears, Nose, Throat Exam: normal ENT inspection, pharynx normal Neck Exam: normal inspection, non-tender, supple, full range of motion Respiratory Exam: normal breath sounds, lungs clear Cardiovascular Exam: regular rate/rhythm, normal heart sounds Gastrointestinal/Abdomen Exam: soft, normal bowel sounds, No tenderness Back Exam: normal inspection, normal range of motion Extremity Exam: normal inspection, normal range of motion, pelvis stable Neurologic Exam: alert, oriented x 3, cooperative, woven paper hat mender II-XII nml as tested, nml cerebellar function, sensation nml, No normal mood/affect (Anxious) Skin Exam: normal color SpO2 Interpretation: normal SpO2: 99 O2 Delivery: Room Air - Course EKG Interpreted by Me: RATE (77), Sinus Rhythm, NORMAL AXIS, NORMAL INTERVALS, Q-wave, Other (Nonspecific ST and T wave changes) Ordered Tests: Active Orders 24 hr Category Date Time Status Youth Leader STAT Care 05/20/21 13:45 Active EKG-ER Only STAT Care 05/20/21 13:44 Active IV Insertion STAT Care 05/20/21 13:44 Active Orthostatic Vital Signs STAT Care 05/20/21 13:44 Active CHEST 1 VIEW (PORTABLE) Stat Exams 05/20/21 13:45 Completed CBC W DIFF Stat Lab 05/20/21 13:50 Completed CMP Stat Lab 05/20/21 13:50 Completed CULTURE,URINE Stat Lab 05/20/21 14:28 Received HCG,QUALITATIVE URINE Stat Lab 05/20/21 14:28 Completed Lactic Acid Stat Lab 05/20/21 13:44 Completed MAGNESIUM Stat Lab 05/20/21 13:50 Completed TROPONIN Q3H Lab 05/20/21 13:50 Completed TROPONIN Q3H Lab 05/20/21 16:45 Ordered TROPONIN Q3H Lab 05/20/21 19:45 Ordered TROPONIN Q3H Lab 05/20/21 22:45 Ordered TROPONIN Q3H Lab 05/21/21 01:45 Ordered TSH [TSH, 3RD Generation] Stat Lab 05/20/21 13:50 Completed UA W/RFX UR CULTURE Stat Lab 05/20/21 14:28 Completed Urine Triage Profile Stat Lab 05/20/21 14:28 Completed Medication Summary Discontinued Medications Generic Name Dose Route Start Last Admin Trade Name Freq PRN Reason Stop Dose Admin Sodium Chloride 1,000 mls @ 999 mls/hr 05/20/21 13:44 05/20/21 15:00 Sodium Chloride 0.9% 1000 Ml IV 05/20/21 14:44 Infused .Q1H1M STA Infusion Potassium Bicarbonate 50 meq 05/20/21 14:30 05/20/21 14:45 K-Lyte 25 Meq PO 05/20/21 14:31 Not Given STAT ONE Potassium Chloride 40 meq 05/20/21 14:45 05/20/21 14:47 Klor Con 10 Meq PO 05/20/21 14:46 40 meq STAT ONE Administration Potassium Chloride Confirm 05/20/21 14:46 Klor Con 10 Meq Administered 05/20/21 14:47 Dose 40 meq PO .STK-MED ONE Lab/Rad Data: Laboratory Result Diagrams 05/20/21 13:50 05/20/21 13:50 Laboratory Results 05/20/21 05/20/21 05/20/21 Range/Units 14:28 14:28 14:28 WBC (4.0-10.5) K/mm3 RBC (4.1-5.4) M/mm3 Hgb (12.0-16.0) gm/dl Hct (35-47) % MCV (78-100) fl MCH (26-32) pg MCHC (32-36) g/dl RDW (11.5-14.0) % Plt Count (150-450) K/mm3 MPV (7.5-11.0) fl Gran % (36.0-66.0) % Eos # (Auto) (0-0.5) Absolute Lymphs (auto) (1.0-4.6) Absolute Monos (auto) (0.0-1.3) Lymphocytes % (24.0-44.0) % Monocytes % (0.0-12.0) % Eosinophils % (0.00-5.0) % Basophils % (0.0-0.4) % Absolute Granulocytes (1.4-6.9) Basophils # (0-0.4) Sodium (137-145) mmol/L Potassium (3.5-5.1) mmol/L Chloride (98-107) mmol/L Carbon Dioxide (22-30) mmol/L Anion Gap (5-15) MEQ/L BUN (7-17) mg/dL Creatinine (0.52-1.04) mg/dL Estimated GFR ML/MIN Glucose (74-106) mg/dL Lactic Acid (0.4-2.0) Calcium (8.4-10.2) mg/dL Magnesium (1.6-2.3) mg/dL Total Bilirubin (0.2-1.3) mg/dL AST (14-36) U/L ALT (0-35) U/L Alkaline Phosphatase (38-126) U/L Troponin I (0.000-0.034) ng/mL Serum Total Protein (6.3-8.2) g/dL Albumin (3.5-5.0) g/dL TSH 3rd Generation (0.47-4.68) mIU/L Urine Color YELLOW (YELLOW) Urine Appearance CLEAR (CLEAR) Urine pH 6.0 (5-6) Ur Specific [place] 1.013 (1.005-1.025) Urine Protein NEGATIVE (Negative) Urine Ketones NEGATIVE (NEGATIVE) Urine Blood SMALL (0-5) Deondre/ul Urine Nitrite NEGATIVE (NEGATIVE) Urine Bilirubin NEGATIVE (NEGATIVE) Urine Urobilinogen NEGATIVE (0-1) mg/dL Ur Leukocyte Esterase SMALL (NEGATIVE) Urine WBC (Auto) 0-2 (0-5) /HPF Urine RBC (Auto) 0-2 (0-2) /HPF U Epithel Cells (Auto) RARE (FEW) /HPF Urine Bacteria (Auto) NONE (NEGATIVE) /HPF Urine Culture Reflexed YES (NO) Urine Glucose NEGATIVE (NEGATIVE) mg/dL Urine HCG, Qual NEGATIVE (Negative) Urine Opiates Level NEGATIVE (NEGATIVE) Ur Methadone NEGATIVE (NEGATIVE) Urine Barbiturates NEGATIVE (NEGATIVE) Ur Phencyclidine (PCP) NEGATIVE (NEGATIVE) Urine Amphetamine NEGATIVE (NEGATIVE) U Benzodiazepine Level NEGATIVE (NEGATIVE) Urine Cocaine NEGATIVE (NEGATIVE) Urine Marijuana (THC) NEGATIVE (NEGATIVE) 05/20/21 05/20/21 05/20/21 Range/Units 13:50 13:50 13:50 WBC (4.0-10.5) K/mm3 RBC (4.1-5.4) M/mm3 Hgb (12.0-16.0) gm/dl Hct (35-47) % MCV (78-100) fl MCH (26-32) pg MCHC (32-36) g/dl RDW (11.5-14.0) % Plt Count (150-450) K/mm3 MPV (7.5-11.0) fl Gran % (36.0-66.0) % Eos # (Auto) (0-0.5) Absolute Lymphs (auto) (1.0-4.6) Absolute Monos (auto) (0.0-1.3) Lymphocytes % (24.0-44.0) % Monocytes % (0.0-12.0) % Eosinophils % (0.00-5.0) % Basophils % (0.0-0.4) % Absolute Granulocytes (1.4-6.9) Basophils # (0-0.4) Sodium 134 L (137-145) mmol/L Potassium 3.1 L (3.5-5.1) mmol/L Chloride 98 (98-107) mmol/L Carbon Dioxide 27 (22-30) mmol/L Anion Gap 12.4 (5-15) MEQ/L BUN 14 (7-17) mg/dL Creatinine 1.00 (0.52-1.04) mg/dL Estimated GFR > 60.0 ML/MIN Glucose 81 (74-106) mg/dL Lactic Acid (0.4-2.0) Calcium 9.1 (8.4-10.2) mg/dL Magnesium 2.1 (1.6-2.3) mg/dL Total Bilirubin 0.30 (0.2-1.3) mg/dL AST 28 (14-36) U/L ALT 16 (0-35) U/L Alkaline Phosphatase 83 (38-126) U/L Troponin I < 0.012 (0.000-0.034) ng/mL Serum Total Protein 7.4 (6.3-8.2) g/dL Albumin 4.2 (3.5-5.0) g/dL TSH 3rd Generation 1.180 (0.47-4.68) mIU/L Urine Color (YELLOW) Urine Appearance (CLEAR) Urine pH (5-6) Ur Specific [place] (1.005-1.025) Urine Protein (Negative) Urine Ketones (NEGATIVE) Urine Blood (0-5) Deondre/ul Urine Nitrite (NEGATIVE) Urine Bilirubin (NEGATIVE) Urine Urobilinogen (0-1) mg/dL Ur Leukocyte Esterase (NEGATIVE) Urine WBC (Auto) (0-5) /HPF Urine RBC (Auto) (0-2) /HPF U Epithel Cells (Auto) (FEW) /HPF Urine Bacteria (Auto) (NEGATIVE) /HPF Urine Culture Reflexed (NO) Urine Glucose (NEGATIVE) mg/dL Urine HCG, Qual (Negative) Urine Opiates Level (NEGATIVE) Ur Methadone (NEGATIVE) Urine Barbiturates (NEGATIVE) Ur Phencyclidine (PCP) (NEGATIVE) Urine Amphetamine (NEGATIVE) U Benzodiazepine Level (NEGATIVE) Urine Cocaine (NEGATIVE) Urine Marijuana (THC) (NEGATIVE) 05/20/21 05/20/21 Range/Units 13:50 13:44 WBC 8.2 (4.0-10.5) K/mm3 RBC 4.35 (4.1-5.4) M/mm3 Hgb 11.4 L (12.0-16.0) gm/dl Hct 36.0 (35-47) % MCV 82.8 (78-100) fl MCH 26.2 (26-32) pg MCHC 31.7 L (32-36) g/dl RDW 13.8 (11.5-14.0) % Plt Count 426 (150-450) K/mm3 MPV 9.5 (7.5-11.0) fl Gran % 54.4 (36.0-66.0) % Eos # (Auto) 0.16 (0-0.5) Absolute Lymphs (auto) 2.87 (1.0-4.6) Absolute Monos (auto) 0.67 (0.0-1.3) Lymphocytes % 35.0 (24.0-44.0) % Monocytes % 8.2 (0.0-12.0) % Eosinophils % 2.0 (0.00-5.0) % Basophils % 0.4 (0.0-0.4) % Absolute Granulocytes 4.47 (1.4-6.9) Basophils # 0.03 (0-0.4) Sodium (137-145) mmol/L Potassium (3.5-5.1) mmol/L Chloride (98-107) mmol/L Carbon Dioxide (22-30) mmol/L Anion Gap (5-15) MEQ/L BUN (7-17) mg/dL Creatinine (0.52-1.04) mg/dL Estimated GFR ML/MIN Glucose (74-106) mg/dL Lactic Acid 1.6 (0.4-2.0) Calcium (8.4-10.2) mg/dL Magnesium (1.6-2.3) mg/dL Total Bilirubin (0.2-1.3) mg/dL AST (14-36) U/L ALT (0-35) U/L Alkaline Phosphatase (38-126) U/L Troponin I (0.000-0.034) ng/mL Serum Total Protein (6.3-8.2) g/dL Albumin (3.5-5.0) g/dL TSH 3rd Generation (0.47-4.68) mIU/L Urine Color (YELLOW) Urine Appearance (CLEAR) Urine pH (5-6) Ur Specific [place] (1.005-1.025) Urine Protein (Negative) Urine Ketones (NEGATIVE) Urine Blood (0-5) Deondre/ul Urine Nitrite (NEGATIVE) Urine Bilirubin (NEGATIVE) Urine Urobilinogen (0-1) mg/dL Ur Leukocyte Esterase (NEGATIVE) Urine WBC (Auto) (0-5) /HPF Urine RBC (Auto) (0-2) /HPF U Epithel Cells (Auto) (FEW) /HPF Urine Bacteria (Auto) (NEGATIVE) /HPF Urine Culture Reflexed (NO) Urine Glucose (NEGATIVE) mg/dL Urine HCG, Qual (Negative) Urine Opiates Level (NEGATIVE) Ur Methadone (NEGATIVE) Urine Barbiturates (NEGATIVE) Ur Phencyclidine (PCP) (NEGATIVE) Urine Amphetamine (NEGATIVE) U Benzodiazepine Level (NEGATIVE) Urine Cocaine (NEGATIVE) Urine Marijuana (THC) (NEGATIVE) - Progress Progress: improved Progress Note: 05/20/21 15:46 Patient has nonfocal neuro exam throughout her stay in the ER. Orthostatics negative. Broad work-up was done which is grossly unremarkable except for mildly low potassium but patient is on diuretics. She is given replacement orally. Do not think she needs a CT head or other neuro work-up as her symptoms seems to be vasovagal and has happened in the past as well. Recommended increasing hydration and outpatient follow-up. Discussed signs symptoms of worsening needing return to ER which he seems understanding. Counseled pt/family regarding: lab results, diagnosis, need for follow-up, rad results - Departure Departure Disposition: Home Clinical Impression: Vasovagal near syncope, Gastroenteritis Condition: Stable Critical Care Time: No Referrals: MARIE BHATIA NP [Primary Care Provider] - (Call tomorrow for reevaluation) Instructions: Syncope (Fainting) (DC) Additional Instructions: Drink plenty of fluids to keep yourself well-hydrated. Follow-up with your primary care for reevaluation. Return to ER for worsening diarrhea or if develop abdominal pain/vomiting/fever chills or if again have near syncope /syncopal episode.
--- NOTE | 2021-05-20 14:03 | XRAY ---
Indication: Syncope. Comparison: August 07, 2019. Portable chest continues to demonstrate normal heart, lungs, and bony thorax.
[2021-05-20 14:08] LABS: Absolute Neutrophil Ct (ANC) 4.47 (1.4-6.9); BASOPHIL % 0.4 % (0.0-0.4); Basophil (Absolute #) 0.03 (0-0.4); Eosinophil (Absolute #) 0.16 (0-0.5); Hemoglobin 11.4 gm/dl (12.0-16.0); Lymphocyte (Absolute #) 2.87 (1.0-4.6); Mean Cell Volume 82.8 fl (78-100); Mean Corpuscular Hemoglobin 26.2 pg (26-32); Mean Corpuscular Hgb Concent. 31.7 g/dl (32-36); Mean Platelet Volume 9.5 fl (7.5-11.0); Monocyte (Absolute #) 0.67 (0.0-1.3); Monocytes % 8.2 % (0.0-12.0); Neutrophil % 54.4 % (36.0-66.0); Platelet Count 426 K/mm3 (150-450); Red Blood Count 4.35 M/mm3 (4.1-5.4); Red Cell Distribution Width 13.8 % (11.5-14.0); White Blood Count 8.2 K/mm3 (4.0-10.5)
[2021-05-20 14:17] LABS: ALBUMIN 4.2 g/dL (3.5-5.0); ALKALINE PHOSPHATASE 83 U/L (38-126); ANION GAP 12.4 MEQ/L (5-15); BLOOD UREA NITROGEN 14 mg/dL (7-17); CHLORIDE 98 mmol/L (98-107); Calcium 9.1 mg/dL (8.4-10.2); Carbon Dioxide 27 mmol/L (22-30); EST GLOMERULAR FILTRATION RATE > 60.0 ML/MIN; Glucose 81 mg/dL (74-106); MAGNESIUM 2.1 mg/dL (1.6-2.3); Potassium 3.1 mmol/L (3.5-5.1); SGOT/AST 28 U/L (14-36); SGPT/ALT 16 U/L (0-35); SODIUM 134 mmol/L (137-145); Total Protein 7.4 g/dL (6.3-8.2)
[2021-05-20] MEDS ORDERED: K-LYTE 25 MEQ PO ONE (14:30)
[2021-05-20] MEDS ORDERED: Klor Con 10 MEQ PO ONE ×2 (14:45→14:46)
[2021-05-20 15:03] LABS: Appearance CLEAR (CLEAR); Bilirubin NEGATIVE (NEGATIVE); Blood SMALL Ery/ul (0-5); Epithelial Cells RARE /HPF (FEW); Glucose NEGATIVE (NEGATIVE); Ketones NEGATIVE (NEGATIVE); Leukocyte Esterase SMALL (NEGATIVE); Nitrite NEGATIVE (NEGATIVE); Protein,Urine Dip NEGATIVE (Negative); RBC 0-2 /HPF (0-2); Specific Gravity 1.013 (1.005-1.025); Urobilinogen NEGATIVE mg/dL (0-1); WBC 0-2 /HPF (0-5)
[2021-05-20 15:26] LABS: Amphetamine,Urine NEGATIVE (NEGATIVE); Barbiturate,Urine NEGATIVE (NEGATIVE); Benzodiazepine,Urine NEGATIVE (NEGATIVE); Cocaine,Urine NEGATIVE (NEGATIVE); Methadone,Urine NEGATIVE (NEGATIVE); Opiate,Urine NEGATIVE (NEGATIVE); PCP,Urine NEGATIVE (NEGATIVE); THC,Urine NEGATIVE (NEGATIVE)
[2021-05-20 15:47] VITALS: BP 100/65; PULSE 80
[2021-05-20 15:49] VITALS: O2SAT 99
== END 2021-05-20 15:52 | disposition home or self-care (01) ==
LOC: ED 12:37
DX: R55 Syncope and collapse (principal); K52.9 Noninfective gastroenteritis and colitis, unspecified
CPT/HCPCS: 36000; 36415; 71045; 80053; 80307; 81001; 83605; 83735; 84443; 84484; 84703; 85025; 87086; 93005; 93041; 96360; 99284; A9270-GY

== ENCOUNTER 2022-10-12 19:53 | Emergency (ER) | payer OTHER ==
[2022-10-12 21:13] LABS: Absolute Neutrophil Ct (ANC) 3.29 x10^3/uL (1.4-6.9); BASOPHIL % 0.8 % (0.0-0.4); Basophil (Absolute #) 0.06 x10^3/uL (0-0.4); Eosinophil (Absolute #) 0.22 x10^3/uL (0-0.5); Hematocrit 34.9 % (35-47); Hemoglobin 10.8 g/dL (12.0-16.0); IMMATURE GRAN # 0.01 x10^3u/L (0.00-0.03); IMMATURE GRAN % 0.1 % (0.00-0.4); Lymphocyte (Absolute #) 3.05 x10^3/uL (1.0-4.6); Lymphocytes % 42.1 % (24.0-44.0); Mean Cell Volume 80.4 fL (78-100); Mean Corpuscular Hemoglobin 24.9 pg (26-32); Mean Corpuscular Hgb Concent. 30.9 g/dL (32-36); Mean Platelet Volume 9.4 fL (7.5-11.0); Monocyte (Absolute #) 0.62 x10^3/uL (0.0-1.3); Monocytes % 8.6 % (0.0-12.0); Neutrophil % 45.4 % (36.0-66.0); Platelet Count 383 x10^3/uL (150-450); Red Blood Count 4.34 x10^6/uL (4.1-5.4); Red Cell Distribution Width 14.7 % (11.5-14.0); White Blood Count 7.3 x10^3/uL (4.0-10.5)
[2022-10-12 21:38] LABS: ADD URINE CULTURE? NO (NO); Appearance Clear (Clear); Bacteria None Seen /HPF (None Seen); Bilirubin Negative (Negative); Blood Negative (Negative); Epithelial Cells None Seen /HPF (None Seen); Glucose, Urine Negative (Negative); Hyaline Casts NONE SEEN /LPF (0-2); Ketones Negative (Negative); Leukocyte Esterase Small (Negative); Nitrite Negative (Negative); Ph 7.5 (4.6-8.0); Protein,Urine Dip Negative (Negative); RBC 0-2 /HPF (0-5); Specific Gravity <=1.005 (1.005-1.030); Urobilinogen 0.2 mg/dL (0.2); WBC 0-2 /HPF (0-5)
[2022-10-12 21:47] LABS: ALBUMIN 3.9 g/dL (3.5-5.0); ALKALINE PHOSPHATASE 85 U/L (38-126); BLOOD UREA NITROGEN 14 mg/dL (7-17); CHLORIDE 102 mmol/L (98-107); Calcium 9.1 mg/dL (8.4-10.2); Carbon Dioxide 27 mmol/L (22-30); Creatinine 1 0.82 mg/dL (0.52-1.04); EST GLOMERULAR FILTRATION RATE > 60.0 ML/MIN; Glucose 86 mg/dL (74-106); NT PRO BNP 79.2 pg/mL (0-450); SGOT/AST 23 U/L (14-36); SGPT/ALT 14 U/L (0-35); SODIUM 137 mmol/L (137-145); Total Protein 6.9 g/dL (6.3-8.2)
[2022-10-12 22:10] VITALS: PULSE 81; O2SAT 98
[2022-10-12 22:19] VITALS: BP 163/91
--- NOTE | 2022-10-12 22:23 | ERPHSYRPT ---
- History of Present Illness Time Seen by Provider: 10/12/22 20:45 Source: patient Patient Subjective Stated Complaint: HTN x 1 hr Triage Nursing Assessment: pt to ED c/o HTN, throbbing headache, ears hot and throbbing. pt states she was watvhing TV at home about 1 hr physician neonatology when she started to feel bad, checked BP and measured 200/100s in both arms. pt came to ED for eval. no reported neurological hx besides migraines that does not feel like these sx and has not caused HTN in past. pt used to take BP medication but has not had to since weight loss. Physician History: Patient is a 47-year-old female presents to the emergency department for ev aluation of high blood pressure. Patient states she has a history of high blood pressure but has been off of her blood pressure medication since she has lost weight. Patient states she started to feel unwell approximately 1 hour prior to arrival. Patient checked her blood pressure and found it to be 200/100. Patient has a slight headache. Patient has a history of migraine headache. However patient states the headache is mild. Headache started and progressed gradually. Is not the worst headache of her life. It is typical of a usual migraine. No associated numbness tingling or weakness. No chest pain or shortness of breath. Patient otherwise feels well. She voices no other complai nts or concerns at this time. Patient declined pain medication. Portions of this note were created with voice recognition technology. There may be grammatical, spelling, punctuation or sound alike errors Timing/Duration: today Severity: moderate Modifying Factors: Improves With: nothing Associated Symptoms: denies symptoms Allergies/Adverse Reactions: Iodinated Contrast Media [Iodinated Contrast Media - IV Dye] Allergy (Mild, Verified 10/12/22 20:34) Hives acetaminophen [From Darvocet-N] Allergy (Verified 10/12/22 20:34) propoxyphene [From Darvocet-N] Allergy (Verified 10/12/22 20:34) shellfish derived Allergy (Verified 10/12/22 20:34) promethazine HCl [From Phenergan] Adverse Reaction (Unknown, Verified 10/12/22 20:34) syncopal, drops B/P Home Medications: Levothyroxine Sodium [Synthroid] 75 mcg PO DAILY 05/07/13 [History] Venlafaxine HCl ER 75 mg [Effexor XR 75 MG] 75 mg PO DAILY 05/07/13 [History] Norethindrone-Ethinyl Estrad [Ovcon-35 28 Tablet] 1 tab PO DAILY 02/23/15 [History] Semaglutide [Ozempic] 1 mg SQ WEEKLY 03/27/20 [History] Hx Tetanus, Diphtheria Vaccination/Date Given: Yes Hx Influenza Vaccination/Date Given: Yes Hx Pneumococcal Vaccination/Date Given: No Travel Risk - International Travel Have you traveled outside of the country in past 3 weeks: No - Coronavirus Screening Are you exhibiting any of the following symptoms?: No Close contact with a COVID-19 positive Pt in past 14-21 Days: No - Vaccine Status Have you recieved a Covid-19 vaccination: Yes [employer]: Moderna - Vaccination Dates Date of 2cond Vaccination (if applicable): 12/15/2020 - Review of Systems Constitutional: No Symptoms, No Fever, No Chills Eyes: No Symptoms Ears, Nose, & Throat: No Symptoms Respiratory: No Symptoms, No Cough, No Dyspnea Cardiac: No Symptoms, No Chest Pain, No Edema, No Syncope Abdominal/Gastrointestinal: No Symptoms, No Abdominal Pain, No Nausea, No Vomiting, No Diarrhea Genitourinary Symptoms: No Symptoms, No Dysuria Musculoskeletal: No Symptoms, No Back Pain, No Neck Pain Skin: No Symptoms, No Rash Neurological: No Symptoms, No Dizziness, No Focal Weakness, No Sensory Changes Psychological: No Symptoms Endocrine: No Symptoms Hematologic/Lymphatic: No Symptoms Immunological/Allergic: No Symptoms All Other Systems: Reviewed and Negative - Past Medical History Pertinent Past Medical History: Yes Neurological History: Migraines ENT History: No Pertinent History Cardiac History: High Cholesterol, Hypertension Respiratory History: No Pertinent History Endocrine Medical History: Diabetes Type II, Hypothyroidism Musculoskeletal History: No Pertinent History GI Medical History: No Pertinent History History: No Pertinent History Psycho-Social History: No Pertinent History Female Reproductive Disorders: No Pertinent History Other Medical History: silent migraines, breast reduction in 2001 " metabolic syndrome" - Past Surgical History Past Surgical History: Yes Neuro Surgical History: No Pertinent History Cardiac: No Pertinent History Respiratory: No Pertinent History Gastrointestinal: Cholecystectomy Genitourinary: No Pertinent History Musculoskeletal: No Pertinent History Female Surgical History: Tubal Ligation, Other Other Surgical History: GALLBLADDER,BREAST REDUCTION,LAPS FOR OVARIAN CYST. - Social History Smoking Status: Former smoker Exposure to second hand smoke: No Drug Use: none Patient Lives Alone: No - Female History Hx Last Menstrual Period: 2 weeks ago Hx Now: No - Nursing Vital Signs Nursing Vital Signs: Initial Vital Signs Temperature 98.2 F 10/12/22 20:35 Pulse Rate 98 H 10/12/22 20:35 Respiratory Rate 20 10/12/22 20:35 Blood Pressure 214/99 10/12/22 20:35 O2 Sat by Pulse Oximetry 100 10/12/22 20:35 Pain Scale Pain Intensity 5 - Physical Exam General Appearance: no apparent distress, alert Eye Exam: PERRL/EOMI, eyes nml inspection Ears, Nose, Throat Exam: normal ENT inspection, TMs normal, pharynx normal, moist mucous membranes Neck Exam: normal inspection, non-tender, supple, full range of motion Respiratory Exam: normal breath sounds, lungs clear, No respiratory distress Cardiovascular Exam: regular rate/rhythm, normal heart sounds, normal peripheral pulses Gastrointestinal/Abdomen Exam: soft, normal bowel sounds, No tenderness, No mass Back Exam: normal inspection, normal range of motion, No CVA tenderness, No vertebral tenderness Extremity Exam: normal inspection, normal range of motion, pelvis stable Neurologic Exam: alert, oriented x 3, cooperative, normal mood/affect, nml cereb ellar function, nml station & gait, sensation nml, No motor deficits Skin Exam: normal color, warm, dry, No rash Lymphatic Exam: No adenopathy SpO2 Interpretation: normal SpO2: 98 O2 Delivery: Room Air - Course Nursing assessment & vital signs reviewed: Yes EKG Interpreted by Me: RATE (82), Sinus Rhythm, NORMAL AXIS, NORMAL INTERVALS Ordered Tests: Active Orders 24 hr Category Date Time Status Wellness Nurse Rn STAT Care 10/12/22 20:53 Active EKG-ER Only STAT Care 10/12/22 20:51 Active IV Insertion STAT Care 10/12/22 20:51 Active Pulse Oximetry (ED) STAT Care 10/12/22 20:51 Active CBC W DIFF Stat Lab 10/12/22 21:11 Completed CMP Stat Lab 10/12/22 21:11 Completed NT PRO BNP Stat Lab 10/12/22 21:11 Completed TROPONIN Q4H Lab 10/12/22 21:11 Completed TROPONIN Q4H Lab 10/13/22 01:00 Ordered TROPONIN Q4H Lab 10/13/22 05:00 Ordered UA W/RFX UR CULTURE Stat Lab 10/12/22 21:11 Completed Lab/Rad Data: Laboratory Result Diagrams 10/12/22 21:11 10/12/22 21:11 Laboratory Results 10/12/22 10/12/22 10/12/22 Range/Units 21:11 21:11 21:11 WBC (4.0-10.5) x10^3/uL RBC (4.1-5.4) x10^6/uL Hgb (12.0-16.0) g/dL Hct (35-47) % MCV (78-100) fL MCH (26-32) pg MCHC (32-36) g/dL RDW (11.5-14.0) % Plt Count (150-450) x10^3/uL MPV (7.5-11.0) fL Gran % (36.0-66.0) % Immature Gran % (Auto) (0.00-0.4) % Nucleat RBC Rel Count (0.00-0.1) % Eos # (Auto) (0-0.5) x10^3/uL Immature Gran # (Auto) (0.00-0.03) x10^3u/L Absolute Lymphs (auto) (1.0-4.6) x10^3/uL Absolute Monos (auto) (0.0-1.3) x10^3/uL Absolute Nucleated RBC (0.00-0.01) x10^3u/L Lymphocytes % (24.0-44.0) % Monocytes % (0.0-12.0) % Eosinophils % (0.00-5.0) % Basophils % (0.0-0.4) % Absolute Granulocytes (1.4-6.9) x10^3/uL Basophils # (0-0.4) x10^3/uL Sodium 137 (137-145) mmol/L Potassium 4.0 (3.5-5.1) mmol/L Chloride 102 (98-107) mmol/L Carbon Dioxide 27 (22-30) mmol/L Anion Gap 12.0 (5-15) MEQ/L BUN 14 (7-17) mg/dL Creatinine 0.82 (0.52-1.04) mg/dL Estimated GFR > 60.0 ML/MIN Glucose 86 (74-106) mg/dL Calcium 9.1 (8.4-10.2) mg/dL Total Bilirubin 0.20 (0.2-1.3) mg/dL AST 23 (14-36) U/L ALT 14 (0-35) U/L Alkaline Phosphatase 85 (38-126) U/L Troponin I < 0.012 (0.000-0.034) ng/mL NT-Pro-B Natriuret Pep 79.2 (0-450) pg/mL Serum Total Protein 6.9 (6.3-8.2) g/dL Albumin 3.9 (3.5-5.0) g/dL Urine Color Yellow (Yellow) Urine Appearance Clear (Clear) Urine pH 7.5 (4.6-8.0) Ur Specific [place] <=1.005 (1.005-1.030) Urine Protein Negative (Negative) Urine Glucose (UA) Negative (Negative) mg/dL Urine Ketones Negative (Negative) Urine Blood Negative (Negative) Urine Nitrite Negative (Negative) Urine Bilirubin Negative (Negative) Urine Urobilinogen 0.2 (0.2) mg/dL Ur Leukocyte Esterase Small A (Negative) U Hyaline Cast (Auto) NONE SEEN (0-2) /LPF Urine Microscopic RBC 0-2 (0-5) /HPF Urine Microscopic WBC 0-2 (0-5) /HPF Ur Epithelial Cells None Seen (None Seen) /HPF Urine Bacteria None Seen (None Seen) /HPF Urine Culture Reflexed NO (NO) 10/12/22 Range/Units 21:11 WBC 7.3 (4.0-10.5) x10^3/uL RBC 4.34 (4.1-5.4) x10^6/uL Hgb 10.8 L (12.0-16.0) g/dL Hct 34.9 L (35-47) % MCV 80.4 (78-100) fL MCH 24.9 L (26-32) pg MCHC 30.9 L (32-36) g/dL RDW 14.7 H (11.5-14.0) % Plt Count 383 (150-450) x10^3/uL MPV 9.4 (7.5-11.0) fL Gran % 45.4 (36.0-66.0) % Immature Gran % (Auto) 0.1 (0.00-0.4) % Nucleat RBC Rel Count 0.0 (0.00-0.1) % Eos # (Auto) 0.22 (0-0.5) x10^3/uL Immature Gran # (Auto) 0.01 (0.00-0.03) x10^3u/L Absolute Lymphs (auto) 3.05 (1.0-4.6) x10^3/uL Absolute Monos (auto) 0.62 (0.0-1.3) x10^3/uL Absolute Nucleated RBC 0.00 (0.00-0.01) x10^3u/L Lymphocytes % 42.1 (24.0-44.0) % Monocytes % 8.6 (0.0-12.0) % Eosinophils % 3.0 (0.00-5.0) % Basophils % 0.8 (0.0-0.4) % Absolute Granulocytes 3.29 (1.4-6.9) x10^3/uL Basophils # 0.06 (0-0.4) x10^3/uL Sodium (137-145) mmol/L Potassium (3.5-5.1) mmol/L Chloride (98-107) mmol/L Carbon Dioxide (22-30) mmol/L Anion Gap (5-15) MEQ/L BUN (7-17) mg/dL Creatinine (0.52-1.04) mg/dL Estimated GFR ML/MIN Glucose (74-106) mg/dL Calcium (8.4-10.2) mg/dL Total Bilirubin (0.2-1.3) mg/dL AST (14-36) U/L ALT (0-35) U/L Alkaline Phosphatase (38-126) U/L Troponin I (0.000-0.034) ng/mL NT-Pro-B Natriuret Pep (0-450) pg/mL Serum Total Protein (6.3-8.2) g/dL Albumin (3.5-5.0) g/dL Urine Color (Yellow) Urine Appearance (Clear) Urine pH (4.6-8.0) Ur Specific [place] (1.005-1.030) Urine Protein (Negative) Urine Glucose (UA) (Negative) mg/dL Urine Ketones (Negative) Urine Blood (Negative) Urine Nitrite (Negative) Urine Bilirubin (Negative) Urine Urobilinogen (0.2) mg/dL Ur Leukocyte Esterase (Negative) U Hyaline Cast (Auto) (0-2) /LPF Urine Microscopic RBC (0-5) /HPF Urine Microscopic WBC (0-5) /HPF Ur Epithelial Cells (None Seen) /HPF Urine Bacteria (None Seen) /HPF Urine Culture Reflexed (NO) - Progress Progress: improved Progress Note: He is a 47-year-old female presents to emergency department for evaluation of hy pertension. Patient has a slight migraine. Patient observed in our ED for couple hours patient's blood pressure decreased gradually down to 163 systolic. Patient asymptomatic. Physical exam is nonremarkable. Patient's complaint is acute. Complexity of complaint is moderate. No significant comorbidities to contribute the patient's current symptomology. Laboratory test ordered include EKG which was reviewed with Dr. Mclean. EKG is normal sinus rhythm. CBC CMP troponin urinalysis proBNP. The results of the work-up were used for medical decision making. Patient did not receive any medications in our ED. Patient reassessed. Patient states she feels well and requesting discharge. No indication for further work-up. Will discharge home. She agrees to follow-up with her primary care doctor within 48 hours for reevaluation. Level of EM service provided was moderate. Complexity of problem was moderate. No evidence of end organ damage. No hypertensive emergency. Complexity of the problem addressed is moderate. Complexity of data reviewed and analyzed moderate. Risk of complications and/or risk morbidity/mortality of patient management is moderate. No critical care time. Patient served as an independent historian. Patient responded well to her observation period in our ED. Blood pressure decreased patient calm relaxed denies headache will discharge home. Time spent on discharge approximately 10 minutes. Patient be discharged home. Portions of this note were created with voice recognition technology. There may be grammatical, spelling, punctuation or sound alike errors 10/12/22 22:33 10/12/22 22:37 10/12/22 22:39 Will see patient in: hospital (observation) Counseled pt/family regarding: lab results, diagnosis, need for follow-up - Departure Departure Disposition: Home Clinical Impression: Hypertension Condition: Stable Critical Care Time: No Referrals: MARIE BHATIA NP [Primary Care Provider] - Follow up/PCP as directed Additional Instructions: Discharge/Care Plan ANUJA CHONG was seen on 10/12/22 in the Emergency Room. The patient was counseled regarding Diagnosis,Lab results, Imaging studies, need for follow up and when to return to the Emergency Room. Prescriptions given: Discharge Note I have spoken with the patient and/or caregivers. I have explained the patient's condition, diagnosis and treatment plan based on the information available to me at this time. I have answered the patient's and/or caregiver's questions and addressed any concerns. The patient and/or caregivers have as good understanding of the patient's diagnosis, condition and treatment plan as can be expected at this point. The vital signs have been stable. The patient's condition is stable and appropriate for discharge from the emergency department. The patient will pursue further outpatient evaluation with the primary care physician or other designated or consulting physician as outlined in the dischar ge instructions. The patient and/or caregivers are agreeable to this plan of care and follow-up instructions have been explained in detail. The patient and/or caregivers have received these instruction. The patient/and or caregivers are aware that any significant change in condition or worsening of symptoms should prompt an immediate return to this or the closest emergency department or call 911.
== END 2022-10-12 22:47 | disposition home or self-care (01) ==
LOC: ED 19:53
DX: I10 Essential (primary) hypertension (principal); R51.9 Headache, unspecified; E11.9 Type 2 diabetes mellitus without complications; E78.5 Hyperlipidemia, unspecified; Z79.85 Long-term (current) use of injectable non-insulin antidiabetic drugs; Z79.899 Other long term (current) drug therapy
CPT/HCPCS: 36000; 36415; 80053; 81001; 83880; 84484; 85025; 93005; 93041; 94760; 99284

== ENCOUNTER 2022-11-07 14:34 | Observation (INO) | payer OTHER ==
--- NOTE | 2022-11-07 15:11 | ERPHSYRPT ---
- History of Present Illness Time Seen by Provider: 11/07/22 14:50 Source: patient, EMS Exam Limitations: no limitations Patient Subjective Stated Complaint: C/O B/P issues. States epidoses of high B/P have been making her feel weird. States she is wiped out from episodes today. Indicates that she had some facial tingling with episode today but has no tingling now. Triage Nursing Assessment: Patient arrived to ER by ambulance. Patient was at he r job at the [employer] when she reports B/P issues. She is alert and oriented. No SOB. Patient was assisted to ambulate to the restroom upon arrival to ER without difficulties. BARCLAY WNL; steady, slow gait. 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 It was witnessed. Patient is a newly diagnosed patient with hypertension. She was initially tried on beta-blockers followed by lisinopril which she did not feel she tolerated well. Now she is taking Norvasc. Patient has a history of hypertension, hypothyroidism, hyperlipidemia, diabetes, and renal disease. She has seen a cadastral surveyor who made the changes on her blood pressure medicine. Her systolic blood pressure readings where 200 at work. She arrives with a systolic blood pressure of 180. She states that she just feels very sleepy and tired. When she had the symptoms at work, she states that her whole face was tingling. That symptom has now completely resolved. She did not hit her head. She has no complaints of pain. She denies chest pain. She denies shortness of breath. She has no abdominal pain. She has not had fevers. She has no nausea vomiting or diarrhea symptoms. Timing/Duration: today Severity: moderate Associated Symptoms: malaise, syncope (Possibility), weakness, No abdominal pain, No shortness of breath, No chest pain, No fever, No headaches Allergies/Adverse Reactions: Iodinated Contrast Media [Iodinated Contrast Media - IV Dye] Allergy (Mild, Verified 11/07/22 14:38) Hives shellfish derived Allergy (Verified 11/07/22 14:38) promethazine HCl [From Phenergan] Adverse Reaction (Unknown, Verified 11/07/22 14:38) syncopal, drops B/P Home Medications: Levothyroxine Sodium [Synthroid] 75 mcg PO DAILY 05/07/13 [History] Venlafaxine HCl ER 75 mg [Effexor XR 75 MG] 150 mg PO DAILY 05/07/13 [History] Norethindrone-Ethinyl Estrad [Ovcon-35 28 Tablet] 1 tab PO DAILY 02/23/15 [History] Semaglutide [Ozempic] 1 mg SQ WEEKLY 03/27/20 [History] Amlodipine Besylate 5 mg [Norvasc 5 mg] 2.5 mg PO DAILY 11/07/22 [History] Hx Tetanus, Diphtheria Vaccination/Date Given: Yes Hx Influenza Vaccination/Date Given: Yes Hx Pneumococcal Vaccination/Date Given: No Immunizations Up to Date: Yes Travel Risk - International Travel Have you traveled outside of the country in past 3 weeks: No - Coronavirus Screening Are you exhibiting any of the following symptoms?: No Close contact with a COVID-19 positive Pt in past 14-21 Days: No - Vaccine Status Have you recieved a Covid-19 vaccination: Yes 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: [employer] - Vaccination Dates Date of 2cond Vaccination (if applicable): 12/15/2020 - Review of Systems Constitutional: Weakness Eyes: No Symptoms Ears, Nose, & Throat: No Symptoms Respiratory: No Symptoms Cardiac: Syncope (Possibility occurred at work) Abdominal/Gastrointestinal: No Symptoms Genitourinary Symptoms: No Symptoms Musculoskeletal: No Symptoms Skin: No Symptoms Neurological: No Symptoms Psychological: No Symptoms Endocrine: No Symptoms Hematologic/Lymphatic: No Symptoms Immunological/Allergic: No Symptoms All Other Systems: Reviewed and Negative - Past Medical History Pertinent Past Medical History: Yes Neurological History: Migraines ENT History: No Pertinent History Cardiac History: High Cholesterol, Hypertension Respiratory History: No Pertinent History Endocrine Medical History: Diabetes Type II, Hypothyroidism Musculoskeletal History: No Pertinent History GI Medical History: No Pertinent History History: Renal Disease Psycho-Social History: No Pertinent History Female Reproductive Disorders: No Pertinent History Other Medical History: silent migraines, " metabolic syndrome" - Past Surgical History Past Surgical History: Yes Neuro Surgical History: No Pertinent History Cardiac: No Pertinent History Respiratory: No Pertinent History Gastrointestinal: Cholecystectomy Genitourinary: No Pertinent History Musculoskeletal: No Pertinent History Female Surgical History: Tubal Ligation, Other Other Surgical History: BREAST REDUCTION,LAPS FOR OVARIAN CYST. - Social History Smoking Status: Former smoker Exposure to second hand smoke: No Drug Use: none Patient Lives Alone: No - Female History Hx Now: No (tubal ligation) - Nursing Vital Signs Nursing Vital Signs: Initial Vital Signs Temperature 98 F 11/07/22 14:47 Pulse Rate 93 H 11/07/22 14:47 Respiratory Rate 21 11/07/22 14:47 Blood Pressure 188/108 11/07/22 14:47 Pain Scale Pain Intensity 0 - Physical Exam SpO2: 98 - Course Nursing assessment & vital signs reviewed: Yes EKG Interpreted by Me: RATE Ordered Tests: Active Orders 24 hr Category Date Time Status Marine Electronics Technician STAT Care 11/07/22 15:12 Active EKG-ER Only STAT Care 11/07/22 15:11 Active IV Insertion STAT Care 11/07/22 15:11 Active NPO (ED) STAT Care 11/07/22 15:12 Active Pulse Oximetry (ED) STAT Care 11/07/22 15:11 Active HEAD WITHOUT CONTRAST [CT] Stat Exams 11/07/22 15:12 Completed CBC W DIFF Stat Lab 11/07/22 15:25 Completed CMP Stat Lab 11/07/22 15:25 Completed MAGNESIUM Stat Lab 11/07/22 15:25 Completed T4 (Thyroxine) Stat Lab 11/07/22 Completed TROPONIN Q4H Lab 11/07/22 15:25 Completed TSH [TSH, 3RD Generation] Stat Lab 11/07/22 Completed UA W/RFX UR CULTURE Stat Lab 11/07/22 15:30 Completed Transfer Order Routine Transfer 11/07/22 Ordered Medication Summary Generic Name Dose Route Start Last Admin Trade Name Freq PRN Reason Stop Dose Admin Diltiazem HCl 180 mg 11/07/22 19:41 Diltiazem Hcl Cd 180 Mg Cap.Sr.24h PO 11/07/22 19:42 STAT ONE Discontinued Medications Generic Name Dose Route Start Last Admin Trade Name Freq PRN Reason Stop Dose Admin Hydralazine HCl 5 mg 11/07/22 15:13 11/07/22 15:25 Hydralazine Hcl 20 Mg/Ml Vial IV 11/07/22 15:14 5 mg STAT ONE Administration Hydralazine HCl Confirm 11/07/22 15:24 Hydralazine Hcl 20 Mg/Ml Vial Administered 11/07/22 15:25 Dose 20 mg .ROUTE .STK-MED ONE Lab/Rad Data: Laboratory Result Diagrams 11/07/22 15:25 11/07/22 15:25 Laboratory Results 11/07/22 11/07/22 11/07/22 Range/Units Unknown Unknown 15:30 WBC (4.0-10.5) x10^3/uL RBC (4.1-5.4) x10^6/uL Hgb (12.0-16.0) g/dL Hct (35-47) % MCV (78-100) fL MCH (26-32) pg MCHC (32-36) g/dL RDW (11.5-14.0) % Plt Count (150-450) x10^3/uL MPV (7.5-11.0) fL Gran % (36.0-66.0) % Immature Gran % (Auto) (0.00-0.4) % Nucleat RBC Rel Count (0.00-0.1) % Eos # (Auto) (0-0.5) x10^3/uL Immature Gran # (Auto) (0.00-0.03) x10^3u/L Absolute Lymphs (auto) (1.0-4.6) x10^3/uL Absolute Monos (auto) (0.0-1.3) x10^3/uL Absolute Nucleated RBC (0.00-0.01) x10^3u/L Lymphocytes % (24.0-44.0) % Monocytes % (0.0-12.0) % Eosinophils % (0.00-5.0) % Basophils % (0.0-0.4) % Absolute Granulocytes (1.4-6.9) x10^3/uL Basophils # (0-0.4) x10^3/uL Sodium (137-145) mmol/L Potassium (3.5-5.1) mmol/L Chloride (98-107) mmol/L Carbon Dioxide (22-30) mmol/L Anion Gap (5-15) MEQ/L BUN (7-17) mg/dL Creatinine (0.52-1.04) mg/dL Estimated GFR ML/MIN Glucose (74-106) mg/dL Calcium (8.4-10.2) mg/dL Magnesium (1.6-2.3) mg/dL Total Bilirubin (0.2-1.3) mg/dL AST (14-36) U/L ALT (0-35) U/L Alkaline Phosphatase (38-126) U/L Troponin I (0.000-0.034) ng/mL Serum Total Protein (6.3-8.2) g/dL Albumin (3.5-5.0) g/dL Thyroxine (T4) 16.3 H (5.53-10.96) ug/dL TSH 3rd Generation 0.906 (0.47-4.68) mIU/L Urine Color Yellow (Yellow) Urine Appearance Clear (Clear) Urine pH 6.5 (4.6-8.0) Ur Specific [place] <=1.005 (1.005-1.030) Urine Protein Negative (Negative) Urine Glucose (UA) Negative (Negative) mg/dL Urine Ketones Negative (Negative) Urine Blood Negative (Negative) Urine Nitrite Negative (Negative) Urine Bilirubin Negative (Negative) Urine Urobilinogen 0.2 (0.2) mg/dL Ur Leukocyte Esterase Small A (Negative) U Hyaline Cast (Auto) NONE SEEN (0-2) /LPF Urine Microscopic RBC 0-2 (0-5) /HPF Urine Microscopic WBC 0-2 (0-5) /HPF Ur Epithelial Cells Rare (None Seen) /HPF Urine Bacteria None Seen (None Seen) /HPF Urine Culture Reflexed NO (NO) 11/07/22 11/07/22 11/07/22 Range/Units 15:25 15:25 15:25 WBC 7.3 (4.0-10.5) x10^3/uL RBC 4.54 (4.1-5.4) x10^6/uL Hgb 11.4 L (12.0-16.0) g/dL Hct 36.3 (35-47) % MCV 80.0 (78-100) fL MCH 25.1 L (26-32) pg MCHC 31.4 L (32-36) g/dL RDW 15.2 H (11.5-14.0) % Plt Count 472 H (150-450) x10^3/uL MPV 9.1 (7.5-11.0) fL Gran % 59.5 (36.0-66.0) % Immature Gran % (Auto) 0.1 (0.00-0.4) % Nucleat RBC Rel Count 0.0 (0.00-0.1) % Eos # (Auto) 0.17 (0-0.5) x10^3/uL Immature Gran # (Auto) 0.01 (0.00-0.03) x10^3u/L Absolute Lymphs (auto) 2.20 (1.0-4.6) x10^3/uL Absolute Monos (auto) 0.49 (0.0-1.3) x10^3/uL Absolute Nucleated RBC 0.00 (0.00-0.01) x10^3u/L Lymphocytes % 30.3 (24.0-44.0) % Monocytes % 6.8 (0.0-12.0) % Eosinophils % 2.3 (0.00-5.0) % Basophils % 1.0 (0.0-0.4) % Absolute Granulocytes 4.31 (1.4-6.9) x10^3/uL Basophils # 0.07 (0-0.4) x10^3/uL Sodium 137 (137-145) mmol/L Potassium 4.1 (3.5-5.1) mmol/L Chloride 104 (98-107) mmol/L Carbon Dioxide 26 (22-30) mmol/L Anion Gap 11.9 (5-15) MEQ/L BUN 14 (7-17) mg/dL Creatinine 0.84 (0.52-1.04) mg/dL Estimated GFR > 60.0 ML/MIN Glucose 94 (74-106) mg/dL Calcium 9.3 (8.4-10.2) mg/dL Magnesium 1.9 (1.6-2.3) mg/dL Total Bilirubin 0.30 (0.2-1.3) mg/dL AST 23 (14-36) U/L ALT 18 (0-35) U/L Alkaline Phosphatase 105 (38-126) U/L Troponin I < 0.012 (0.000-0.034) ng/mL Serum Total Protein 7.6 (6.3-8.2) g/dL Albumin 4.1 (3.5-5.0) g/dL Thyroxine (T4) (5.53-10.96) ug/dL TSH 3rd Generation (0.47-4.68) mIU/L Urine Color (Yellow) Urine Appearance (Clear) Urine pH (4.6-8.0) Ur Specific [place] (1.005-1.030) Urine Protein (Negative) Urine Glucose (UA) (Negative) mg/dL Urine Ketones (Negative) Urine Blood (Negative) Urine Nitrite (Negative) Urine Bilirubin (Negative) Urine Urobilinogen (0.2) mg/dL Ur Leukocyte Esterase (Negative) U Hyaline Cast (Auto) (0-2) /LPF Urine Microscopic RBC (0-5) /HPF Urine Microscopic WBC (0-5) /HPF Ur Epithelial Cells (None Seen) /HPF Urine Bacteria (None Seen) /HPF Urine Culture Reflexed (NO) - Progress Progress: improved, re-examined Progress Note: 11/07/22 18:31 CAT scan of the head shows no intracranial abnormality This patient has medical issue of moderate complexity. This is based on review of the patient's past medical history, medication list medication allergy list and history physical exam as well as physical findings on physical examination. 11/07/22 19:32 The medical issue has now changed to a high complexity. The work-up performed includes IV line placement, twelve-lead EKG, CT scan of the head, CBC, CMP, uri nalysis, T4 and TSH studies. The results were reviewed by me. We also added a troponin level which was normal. The twelve-lead EKG was interpreted by me. Initially, we were going to discharge the patient to home. However at discharge time the blood pressure suddenly shot high. We will admit the patient to the hospital. I spoke with the patient and she is agreeable to this. I also spoke with Dr. Tejeda who is the on-call physician/hospitalist. I reviewed the patient's history, physical findings and the work-up results with her. Together, we formulated a plan which includes placing the patient in the hospital and full admission on telemetry. Dr. Tejeda wants a single dose of Cardizem 100 mg orally now, extended release and a lisinopril 10 mg now and every 12 hours in the hospital. I did review the patient's symptoms when she was taking the beta-radu and lisinopril with Dr. Tejeda. However she wants to try the lisinopril. She also wants me to write call for systolic blood pressure greater than 170 and/or diastolic blood pressure greater than 100. Counseled pt/family regarding: lab results, diagnosis, need for follow-up, rad results Medical Desision Making - Independent Historian Additional History obtained from: Spouse - Discussion of managment Care discussed with:: on-call "doc" Reviewed:: Test results, Need for additional workup Agreed on:: Treatment plan, decision to admit Will see patient: in hospital - Diagnostic Testing Diagnostic test were ordered, analyzed, and reviewed by me: Yes Radiological Interpretation: Reviewed by me, Teleradiologist Report - Risk of complications The pt has a high risk of morbidity or mortality based on: Decision regarding hospitilization or escalation of hosp level of care - Departure Departure Disposition: In-patient Admission Clinical Impression: Hypertensive urgency Condition: Fair Critical Care Time: Yes Critical Care Time(excluding separately billable procedures): Critical 30-74 mins (50 minutes) Referrals: MARIE MARCANO NP [Primary Care Provider] - Follow up/PCP as directed
[2022-11-07] MEDS ORDERED: APRESOLINE 20 MG/ML INJ IV ONE (15:13)
[2022-11-07] MEDS ORDERED: APRESOLINE 20 MG/ML INJ ONE (15:24)
[2022-11-07 15:31] LABS: Absolute Neutrophil Ct (ANC) 4.31 x10^3/uL (1.4-6.9); Basophil (Absolute #) 0.07 x10^3/uL (0-0.4); Eosinophil % 2.3 % (0.00-5.0); Eosinophil (Absolute #) 0.17 x10^3/uL (0-0.5); Hematocrit 36.3 % (35-47); Hemoglobin 11.4 g/dL (12.0-16.0); IMMATURE GRAN # 0.01 x10^3u/L (0.00-0.03); IMMATURE GRAN % 0.1 % (0.00-0.4); Lymphocytes % 30.3 % (24.0-44.0); Mean Corpuscular Hemoglobin 25.1 pg (26-32); Mean Corpuscular Hgb Concent. 31.4 g/dL (32-36); Mean Platelet Volume 9.1 fL (7.5-11.0); Monocyte (Absolute #) 0.49 x10^3/uL (0.0-1.3); Monocytes % 6.8 % (0.0-12.0); Neutrophil % 59.5 % (36.0-66.0); Platelet Count 472 x10^3/uL (150-450); Red Blood Count 4.54 x10^6/uL (4.1-5.4); Red Cell Distribution Width 15.2 % (11.5-14.0); White Blood Count 7.3 x10^3/uL (4.0-10.5)
[2022-11-07 15:46] LABS: ALBUMIN 4.1 g/dL (3.5-5.0); ALKALINE PHOSPHATASE 105 U/L (38-126); ANION GAP 11.9 MEQ/L (5-15); BLOOD UREA NITROGEN 14 mg/dL (7-17); CHLORIDE 104 mmol/L (98-107); Calcium 9.3 mg/dL (8.4-10.2); Carbon Dioxide 26 mmol/L (22-30); Creatinine 1 0.84 mg/dL (0.52-1.04); EST GLOMERULAR FILTRATION RATE > 60.0 ML/MIN; Glucose 94 mg/dL (74-106); MAGNESIUM 1.9 mg/dL (1.6-2.3); Potassium 4.1 mmol/L (3.5-5.1); SGOT/AST 23 U/L (14-36); SGPT/ALT 18 U/L (0-35); SODIUM 137 mmol/L (137-145); Total Protein 7.6 g/dL (6.3-8.2)
[2022-11-07 15:50] LABS: Appearance Clear (Clear); Bacteria None Seen /HPF (None Seen); Bilirubin Negative (Negative); Blood Negative (Negative); Epithelial Cells Rare /HPF (None Seen); Glucose, Urine Negative (Negative); Hyaline Casts NONE SEEN /LPF (0-2); Ketones Negative (Negative); Leukocyte Esterase Small (Negative); Nitrite Negative (Negative); Ph 6.5 (4.6-8.0); Protein,Urine Dip Negative (Negative); RBC 0-2 /HPF (0-5); Specific Gravity <=1.005 (1.005-1.030); Urobilinogen 0.2 mg/dL (0.2); WBC 0-2 /HPF (0-5)
[2022-11-07 15:51] LABS: ADD URINE CULTURE? NO (NO)
--- NOTE | 2022-11-07 16:20 | XRAY ---
Indication: Syncope. Elevated blood pressure. Multiple contiguous axial images obtained through the head without contrast. Comparison: December 20, 2016 Normal appearing brain parenchyma, ventricles, and bony calvarium. Visualized paranasal sinuses and mastoid air cells are clear. Impression: Continued normal CT head without contrast exam.
[2022-11-07] MEDS ORDERED: Cardizem CD PO ONE (19:41)
[2022-11-07 20:20] LABS: INFLUENZA A NEGATIVE (NEGATIVE); INFLUENZA B NEGATIVE (NEGATIVE); RESPIRATORY SYNCTIAL VIRUS NEGATIVE (Negative); SARS-CoV-2 Xpert Express NEGATIVE (NEGATIVE)
[2022-11-07] MEDS ORDERED: Sodium Chloride 0.9% 1000 ML 1,000 ML IV SCH (21:02)
[2022-11-07] MEDS ORDERED: Zofran 4 MG/2 ML VIAL IV PRN (21:02)
[2022-11-07] MEDS ORDERED: TYLENOL 325 MG PO PRN (21:02)
[2022-11-07] MEDS: Zestril 10 MG PO SCH (23:22)
[2022-11-08 04:56] LABS: Absolute Neutrophil Ct (ANC) 4.17 x10^3/uL (1.4-6.9); BASOPHIL % 1.1 % (0.0-0.4); Basophil (Absolute #) 0.09 x10^3/uL (0-0.4); Eosinophil % 3.2 % (0.00-5.0); Eosinophil (Absolute #) 0.27 x10^3/uL (0-0.5); Hematocrit 36.7 % (35-47); Hemoglobin 11.2 g/dL (12.0-16.0); IMMATURE GRAN # 0.02 x10^3u/L (0.00-0.03); IMMATURE GRAN % 0.2 % (0.00-0.4); Lymphocyte (Absolute #) 3.14 x10^3/uL (1.0-4.6); Lymphocytes % 37.7 % (24.0-44.0); Mean Cell Volume 80.3 fL (78-100); Mean Corpuscular Hemoglobin 24.5 pg (26-32); Mean Corpuscular Hgb Concent. 30.5 g/dL (32-36); Mean Platelet Volume 9.6 fL (7.5-11.0); Monocyte (Absolute #) 0.63 x10^3/uL (0.0-1.3); Monocytes % 7.6 % (0.0-12.0); Neutrophil % 50.2 % (36.0-66.0); Platelet Count 506 x10^3/uL (150-450); Red Blood Count 4.57 x10^6/uL (4.1-5.4); Red Cell Distribution Width 15.5 % (11.5-14.0); White Blood Count 8.3 x10^3/uL (4.0-10.5)
[2022-11-08 05:06] LABS: ALBUMIN 3.9 g/dL (3.5-5.0); ALKALINE PHOSPHATASE 92 U/L (38-126); ANION GAP 12.8 MEQ/L (5-15); BLOOD UREA NITROGEN 13 mg/dL (7-17); CHLORIDE 103 mmol/L (98-107); Carbon Dioxide 25 mmol/L (22-30); EST GLOMERULAR FILTRATION RATE > 60.0 ML/MIN; Glucose 87 mg/dL (74-106); SGOT/AST 23 U/L (14-36); SGPT/ALT 17 U/L (0-35); SODIUM 137 mmol/L (137-145); Total Protein 7.3 g/dL (6.3-8.2)
[2022-11-08] MEDS ORDERED: NON-FORMULARY ITEM (Semaglutide [Ozempic] 1 MG/0.75 ML Pen.Injctr) SQ SCH (07:30)
[2022-11-08] MEDS ORDERED: MEDICATION INTERVENTION MC SCH (07:45)
[2022-11-08] MEDS: SYNTHROID 75 MCG PO SCH (08:00)
[2022-11-08] MEDS: Effexor XR 75 MG PO SCH (08:00)
[2022-11-08] MEDS: Zestril 10 MG PO SCH (08:01)
--- NOTE | 2022-11-08 09:18 | PCM.HP ---
History of Present Illness - Chief Complaint Chief Complaint: htn History of Present Illness: is a 47 year old female with recent onset of accelerated hypertension, she has a history of hypothyroidism and type 2 diabetes. interestingly she recently developed hypertension with sudden high spikes of blood pressures associated with near syncopal type episodes and feeling very poorly. she didn't tolerate lisinopril or a beta radu, she has been to see Dr Newberry and recently put on amlodipine, she feels well this morning and responded very well to a dose of cardizem cd last night, she has no chest pain or shortness of breath, no visual changes ,no numbness, tingling, weakness or paresthesias. - Review of Systems Constitutional: No Fever, No Chills Respiratory: No Cough, No Short Of Breath Cardiac: No Chest Pain, No Edema, No Syncope Abdominal/Gastrointestinal: No Abdominal Pain, No Nausea, No Vomiting, No Diarrhea Genitourinary Symptoms: No Symptoms Neurological: No Dizziness, No Focal Weakness, No Sensory Changes All Other Systems: Reviewed and Negative Medications & Allergies Home Medications: Home Medication List Levothyroxine Sodium [Synthroid] 75 mcg PO DAILY 05/07/13 [History Confirmed 11/07/22] Venlafaxine HCl ER 75 mg [Effexor XR 75 MG] 150 mg PO DAILY 05/07/13 [History Confirmed 11/07/22] Norethindrone-Ethinyl Estrad [Ovcon-35 28 Tablet] 1 tab PO DAILY 02/23/15 [History Confirmed 11/07/22] Semaglutide [Ozempic] 1 mg SQ WEEKLY 03/27/20 [History Confirmed 11/07/22] Amlodipine Besylate 5 mg [Norvasc 5 mg] 2.5 mg PO DAILY 11/07/22 [History Confirmed 11/07/22] Allergies/Adverse Reactions: Allergies Allergy/AdvReac Type Severity Reaction Status Date / Time Iodinated Contrast Media Allergy Mild Hives Verified 11/07/22 14:38 [Iodinated Contrast Media - IV Dye] shellfish derived Allergy Verified 11/07/22 14:38 promethazine HCl AdvReac Unknown Verified 11/07/22 14:38 [From Phenergan] - Past Medical History Past Medical History: Yes Neurological History: Migraines ENT History: No Pertinent History Cardiac History: High Cholesterol, Hypertension Respiratory History: No Pertinent History Endocrine Medical History: Diabetes Type II, Hypothyroidism Musculoskelatal History: No Pertinent History GI Medical History: No Pertinent History History: Renal Disease Pyscho-Social History: No Pertinent History Reproductive Disorders: No Pertinent History Comment: silent migraines, " metabolic syndrome" - Female History Are you now?: No (tubal ligation) - Past Surgical History Past Surgical History: Yes Neuro Surgical History: No Pertinent History Cardiac History: No Pertinent History Respiratory Surgery: No Pertinent History GI Surgical History: Cholecystectomy Genitourinary Surgical Hx: No Pertinent History Musculskeletal Surgical Hx: No Pertinent History Female Surgical History: Tubal Ligation, Other Other Surgical History: BREAST REDUCTION,LAPS FOR OVARIAN CYST. - Social History Smoking Status: Former smoker Exposure to second hand smoke: No Alcohol: None Drug Use: none - Physical Exam Vital Signs: Vital Signs - 24 hr Temp Pulse Resp BP Pulse Ox 11/08/22 07:16 98.9 F 78 17 144/69 97 11/08/22 04:36 99.0 F 70 16 125/73 97 11/08/22 03:58 97.7 F 67 16 132/63 92 L 11/08/22 01:35 136/74 11/07/22 23:44 97.8 F 87 16 136/76 96 11/07/22 22:40 159/81 11/07/22 22:20 97.5 F 82 16 194/96 97 11/07/22 21:28 97.5 F 82 16 194/96 97 11/07/22 20:00 78 18 175/107 97 11/07/22 19:41 98 11/07/22 19:06 87 18 173/119 98 11/07/22 18:33 83 18 150/89 97 11/07/22 17:05 84 17 156/104 97 11/07/22 16:00 84 23 167/105 98 11/07/22 15:20 98 11/07/22 15:07 83 16 168/95 98 11/07/22 14:47 98 F 93 H 21 188/108 General Appearance: no apparent distress Neurologic Exam: alert, oriented x 3, cooperative Respiratory Exam: normal breath sounds, lungs clear, No respiratory distress Cardiovascular Exam: regular rate/rhythm, normal heart sounds, normal peripheral pulses Gastrointestinal/Abdomen Exam: soft, normal bowel sounds, No tenderness, No mass Extremity Exam: normal inspection, normal range of motion, pelvis stable Skin Exam: normal color, warm, dry, No rash Results - Labs Lab/Micro Results: Lab Results-Last 24 Hours 11/07/22 11/07/22 11/07/22 Range/Units 15:25 15:25 15:25 WBC 7.3 (4.0-10.5) x10^3/uL RBC 4.54 (4.1-5.4) x10^6/uL Hgb 11.4 L (12.0-16.0) g/dL Hct 36.3 (35-47) % MCV 80.0 (78-100) fL MCH 25.1 L (26-32) pg MCHC 31.4 L (32-36) g/dL RDW 15.2 H (11.5-14.0) % Plt Count 472 H (150-450) x10^3/uL MPV 9.1 (7.5-11.0) fL Gran % 59.5 (36.0-66.0) % Immature Gran % (Auto) 0.1 (0.00-0.4) % Nucleat RBC Rel Count 0.0 (0.00-0.1) % Eos # (Auto) 0.17 (0-0.5) x10^3/uL Immature Gran # (Auto) 0.01 (0.00-0.03) x10^3u/L Absolute Lymphs (auto) 2.20 (1.0-4.6) x10^3/uL Absolute Monos (auto) 0.49 (0.0-1.3) x10^3/uL Absolute Nucleated RBC 0.00 (0.00-0.01) x10^3u/L Lymphocytes % 30.3 (24.0-44.0) % Monocytes % 6.8 (0.0-12.0) % Eosinophils % 2.3 (0.00-5.0) % Basophils % 1.0 (0.0-0.4) % Absolute Granulocytes 4.31 (1.4-6.9) x10^3/uL Basophils # 0.07 (0-0.4) x10^3/uL Sodium 137 (137-145) mmol/L Potassium 4.1 (3.5-5.1) mmol/L Chloride 104 (98-107) mmol/L Carbon Dioxide 26 (22-30) mmol/L Anion Gap 11.9 (5-15) MEQ/L BUN 14 (7-17) mg/dL Creatinine 0.84 (0.52-1.04) mg/dL Estimated GFR > 60.0 ML/MIN Glucose 94 (74-106) mg/dL Calcium 9.3 (8.4-10.2) mg/dL Magnesium 1.9 (1.6-2.3) mg/dL Total Bilirubin 0.30 (0.2-1.3) mg/dL AST 23 (14-36) U/L ALT 18 (0-35) U/L Alkaline Phosphatase 105 (38-126) U/L Troponin I < 0.012 (0.000-0.034) ng/mL Serum Total Protein 7.6 (6.3-8.2) g/dL Albumin 4.1 (3.5-5.0) g/dL Thyroxine (T4) (5.53-10.96) ug/dL TSH 3rd Generation (0.47-4.68) mIU/L Urine Color (Yellow) Urine Appearance (Clear) Urine pH (4.6-8.0) Ur Specific Start (1.005-1.030) Urine Protein (Negative) Urine Glucose (UA) (Negative) mg/dL Urine Ketones (Negative) Urine Blood (Negative) Urine Nitrite (Negative) Urine Bilirubin (Negative) Urine Urobilinogen (0.2) mg/dL Ur Leukocyte Esterase (Negative) U Hyaline Cast (Auto) (0-2) /LPF Urine Microscopic RBC (0-5) /HPF Urine Microscopic WBC (0-5) /HPF Ur Epithelial Cells (None Seen) /HPF Urine Bacteria (None Seen) /HPF Urine Culture Reflexed (NO) Influenza Type A Ag (NEGATIVE) Influenza Type B Ag (NEGATIVE) RSV (PCR) (Negative) SARS-CoV-2 (PCR) (NEGATIVE) 11/07/22 11/07/22 11/07/22 Range/Units 15:30 17:40 19:35 WBC (4.0-10.5) x10^3/uL RBC (4.1-5.4) x10^6/uL Hgb (12.0-16.0) g/dL Hct (35-47) % MCV (78-100) fL MCH (26-32) pg MCHC (32-36) g/dL RDW (11.5-14.0) % Plt Count (150-450) x10^3/uL MPV (7.5-11.0) fL Gran % (36.0-66.0) % Immature Gran % (Auto) (0.00-0.4) % Nucleat RBC Rel Count (0.00-0.1) % Eos # (Auto) (0-0.5) x10^3/uL Immature Gran # (Auto) (0.00-0.03) x10^3u/L Absolute Lymphs (auto) (1.0-4.6) x10^3/uL Absolute Monos (auto) (0.0-1.3) x10^3/uL Absolute Nucleated RBC (0.00-0.01) x10^3u/L Lymphocytes % (24.0-44.0) % Monocytes % (0.0-12.0) % Eosinophils % (0.00-5.0) % Basophils % (0.0-0.4) % Absolute Granulocytes (1.4-6.9) x10^3/uL Basophils # (0-0.4) x10^3/uL Sodium (137-145) mmol/L Potassium (3.5-5.1) mmol/L Chloride (98-107) mmol/L Carbon Dioxide (22-30) mmol/L Anion Gap (5-15) MEQ/L BUN (7-17) mg/dL Creatinine (0.52-1.04) mg/dL Estimated GFR ML/MIN Glucose (74-106) mg/dL Calcium (8.4-10.2) mg/dL Magnesium (1.6-2.3) mg/dL Total Bilirubin (0.2-1.3) mg/dL AST (14-36) U/L ALT (0-35) U/L Alkaline Phosphatase (38-126) U/L Troponin I < 0.012 (0.000-0.034) ng/mL Serum Total Protein (6.3-8.2) g/dL Albumin (3.5-5.0) g/dL Thyroxine (T4) (5.53-10.96) ug/dL TSH 3rd Generation (0.47-4.68) mIU/L Urine Color Yellow (Yellow) Urine Appearance Clear (Clear) Urine pH 6.5 (4.6-8.0) Ur Specific Start <=1.005 (1.005-1.030) Urine Protein Negative (Negative) Urine Glucose (UA) Negative (Negative) mg/dL Urine Ketones Negative (Negative) Urine Blood Negative (Negative) Urine Nitrite Negative (Negative) Urine Bilirubin Negative (Negative) Urine Urobilinogen 0.2 (0.2) mg/dL Ur Leukocyte Esterase Small A (Negative) U Hyaline Cast (Auto) NONE SEEN (0-2) /LPF Urine Microscopic RBC 0-2 (0-5) /HPF Urine Microscopic WBC 0-2 (0-5) /HPF Ur Epithelial Cells Rare (None Seen) /HPF Urine Bacteria None Seen (None Seen) /HPF Urine Culture Reflexed NO (NO) Influenza Type A Ag NEGATIVE (NEGATIVE) Influenza Type B Ag NEGATIVE (NEGATIVE) RSV (PCR) NEGATIVE (Negative) SARS-CoV-2 (PCR) NEGATIVE (NEGATIVE) 11/07/22 11/07/22 11/07/22 Range/Units 23:05 Unknown Unknown WBC (4.0-10.5) x10^3/uL RBC (4.1-5.4) x10^6/uL Hgb (12.0-16.0) g/dL Hct (35-47) % MCV (78-100) fL MCH (26-32) pg MCHC (32-36) g/dL RDW (11.5-14.0) % Plt Count (150-450) x10^3/uL MPV (7.5-11.0) fL Gran % (36.0-66.0) % Immature Gran % (Auto) (0.00-0.4) % Nucleat RBC Rel Count (0.00-0.1) % Eos # (Auto) (0-0.5) x10^3/uL Immature Gran # (Auto) (0.00-0.03) x10^3u/L Absolute Lymphs (auto) (1.0-4.6) x10^3/uL Absolute Monos (auto) (0.0-1.3) x10^3/uL Absolute Nucleated RBC (0.00-0.01) x10^3u/L Lymphocytes % (24.0-44.0) % Monocytes % (0.0-12.0) % Eosinophils % (0.00-5.0) % Basophils % (0.0-0.4) % Absolute Granulocytes (1.4-6.9) x10^3/uL Basophils # (0-0.4) x10^3/uL Sodium (137-145) mmol/L Potassium (3.5-5.1) mmol/L Chloride (98-107) mmol/L Carbon Dioxide (22-30) mmol/L Anion Gap (5-15) MEQ/L BUN (7-17) mg/dL Creatinine (0.52-1.04) mg/dL Estimated GFR ML/MIN Glucose (74-106) mg/dL Calcium (8.4-10.2) mg/dL Magnesium (1.6-2.3) mg/dL Total Bilirubin (0.2-1.3) mg/dL AST (14-36) U/L ALT (0-35) U/L Alkaline Phosphatase (38-126) U/L Troponin I < 0.012 (0.000-0.034) ng/mL Serum Total Protein (6.3-8.2) g/dL Albumin (3.5-5.0) g/dL Thyroxine (T4) 16.3 H (5.53-10.96) ug/dL TSH 3rd Generation 0.906 (0.47-4.68) mIU/L Urine Color (Yellow) Urine Appearance (Clear) Urine pH (4.6-8.0) Ur Specific Start (1.005-1.030) Urine Protein (Negative) Urine Glucose (UA) (Negative) mg/dL Urine Ketones (Negative) Urine Blood (Negative) Urine Nitrite (Negative) Urine Bilirubin (Negative) Urine Urobilinogen (0.2) mg/dL Ur Leukocyte Esterase (Negative) U Hyaline Cast (Auto) (0-2) /LPF Urine Microscopic RBC (0-5) /HPF Urine Microscopic WBC (0-5) /HPF Ur Epithelial Cells (None Seen) /HPF Urine Bacteria (None Seen) /HPF Urine Culture Reflexed (NO) Influenza Type A Ag (NEGATIVE) Influenza Type B Ag (NEGATIVE) RSV (PCR) (Negative) SARS-CoV-2 (PCR) (NEGATIVE) 11/08/22 11/08/22 Range/Units 04:12 04:12 WBC 8.3 (4.0-10.5) x10^3/uL RBC 4.57 (4.1-5.4) x10^6/uL Hgb 11.2 L (12.0-16.0) g/dL Hct 36.7 (35-47) % MCV 80.3 (78-100) fL MCH 24.5 L (26-32) pg MCHC 30.5 L (32-36) g/dL RDW 15.5 H (11.5-14.0) % Plt Count 506 H (150-450) x10^3/uL MPV 9.6 (7.5-11.0) fL Gran % 50.2 (36.0-66.0) % Immature Gran % (Auto) 0.2 (0.00-0.4) % Nucleat RBC Rel Count 0.0 (0.00-0.1) % Eos # (Auto) 0.27 (0-0.5) x10^3/uL Immature Gran # (Auto) 0.02 (0.00-0.03) x10^3u/L Absolute Lymphs (auto) 3.14 (1.0-4.6) x10^3/uL Absolute Monos (auto) 0.63 (0.0-1.3) x10^3/uL Absolute Nucleated RBC 0.00 (0.00-0.01) x10^3u/L Lymphocytes % 37.7 (24.0-44.0) % Monocytes % 7.6 (0.0-12.0) % Eosinophils % 3.2 (0.00-5.0) % Basophils % 1.1 (0.0-0.4) % Absolute Granulocytes 4.17 (1.4-6.9) x10^3/uL Basophils # 0.09 (0-0.4) x10^3/uL Sodium 137 (137-145) mmol/L Potassium 4.0 (3.5-5.1) mmol/L Chloride 103 (98-107) mmol/L Carbon Dioxide 25 (22-30) mmol/L Anion Gap 12.8 (5-15) MEQ/L BUN 13 (7-17) mg/dL Creatinine 0.90 (0.52-1.04) mg/dL Estimated GFR > 60.0 ML/MIN Glucose 87 (74-106) mg/dL Calcium 9.0 (8.4-10.2) mg/dL Magnesium (1.6-2.3) mg/dL Total Bilirubin 0.30 (0.2-1.3) mg/dL AST 23 (14-36) U/L ALT 17 (0-35) U/L Alkaline Phosphatase 92 (38-126) U/L Troponin I (0.000-0.034) ng/mL Serum Total Protein 7.3 (6.3-8.2) g/dL Albumin 3.9 (3.5-5.0) g/dL Thyroxine (T4) (5.53-10.96) ug/dL TSH 3rd Generation (0.47-4.68) mIU/L Urine Color (Yellow) Urine Appearance (Clear) Urine pH (4.6-8.0) Ur Specific Start (1.005-1.030) Urine Protein (Negative) Urine Glucose (UA) (Negative) mg/dL Urine Ketones (Negative) Urine Blood (Negative) Urine Nitrite (Negative) Urine Bilirubin (Negative) Urine Urobilinogen (0.2) mg/dL Ur Leukocyte Esterase (Negative) U Hyaline Cast (Auto) (0-2) /LPF Urine Microscopic RBC (0-5) /HPF Urine Microscopic WBC (0-5) /HPF Ur Epithelial Cells (None Seen) /HPF Urine Bacteria (None Seen) /HPF Urine Culture Reflexed (NO) Influenza Type A Ag (NEGATIVE) Influenza Type B Ag (NEGATIVE) RSV (PCR) (Negative) SARS-CoV-2 (PCR) (NEGATIVE) - Radiology Impressions Radiology Exams & Impressions: Radiology Procedures Category Date Time Status ECHO W/2D AND DOPPLER [US] Routine Exams 11/08/22 08:59 Ordered HEAD WITHOUT CONTRAST [CT] Stat Exams 11/07/22 15:12 Completed MRA ABDOMEN W OR W/O CONTRAST [MRI] Routine Exams 11/08/22 09:00 Ordered Assessment/Plan (1) Hypertensive urgency Current Visit: Yes Status: Acute Assessment & Plan: sudden onset and high spikes concerning for a possible secondary cause of hypertension. will pursue MRA abd to r/o renovascular hypertension due to contrast allergy. also will check plasma metanephrine, renin:aldosterone and cortisol levels. ordered echo as she has not had one but fairly low suspicion for coarc, will consult [facility] as patient follows with Dr Newberry as well. patient feels cardizem has provided the best control and she feels the best with it so far, will continue it for now. Code(s): I16.0 - HYPERTENSIVE URGENCY (2) Hypothyroidism Current Visit: Yes Status: Acute Assessment & Plan: tsh wnl, t4 high but will check free t4. appears to be euthyroid based on tsh at this time. Code(s): E03.9 - HYPOTHYROIDISM, UNSPECIFIED (3) Type 2 diabetes mellitus Current Visit: Yes Status: Acute
[2022-11-08] MEDS ORDERED: NORVASC 5 MG PO SCH (10:00)
[2022-11-08] MEDS ORDERED: NON-FORMULARY ITEM (Venlafaxine Hcl 75 MG Cap) PO SCH (10:00)
[2022-11-08] MEDS: Cardizem CD PO SCH (10:04)
--- NOTE | 2022-11-08 15:10 | XRAY ---
Indication: Elevated blood pressure. Multi-slab 3-D [id number] MRA abdominal aorta and renal arteries performed. Comparison: May 30, 2013 Visualized aorta again normal in course and caliber without aneurysm/dissection. Normal patent branching celiac and superior mesenteric arteries. Visualized 2 left and 1 right main renal arteries remain normal in MRA appearance. Visualized stomach and bowel loops appear nonobstructed. Visualized liver, pancreas, spleen, adrenal glands, and kidneys are unremarkable. No free fluid or abnormal bone marrow signal. Impression: Continued normal MRA abdominal aorta/renal arteries.
[2022-11-09 05:22] LABS: Absolute Neutrophil Ct (ANC) 4.08 x10^3/uL (1.4-6.9); BASOPHIL % 0.9 % (0.0-0.4); Basophil (Absolute #) 0.07 x10^3/uL (0-0.4); Eosinophil % 3.9 % (0.00-5.0); Eosinophil (Absolute #) 0.31 x10^3/uL (0-0.5); Hematocrit 33.3 % (35-47); Hemoglobin 10.5 g/dL (12.0-16.0); IMMATURE GRAN # 0.02 x10^3u/L (0.00-0.03); IMMATURE GRAN % 0.2 % (0.00-0.4); Lymphocytes % 36.2 % (24.0-44.0); Mean Cell Volume 78.4 fL (78-100); Mean Corpuscular Hemoglobin 24.7 pg (26-32); Mean Corpuscular Hgb Concent. 31.5 g/dL (32-36); Mean Platelet Volume 9.2 fL (7.5-11.0); Monocyte (Absolute #) 0.64 x10^3/uL (0.0-1.3); Neutrophil % 50.8 % (36.0-66.0); Platelet Count 420 x10^3/uL (150-450); Red Blood Count 4.25 x10^6/uL (4.1-5.4); Red Cell Distribution Width 15.3 % (11.5-14.0)
[2022-11-09 06:22] LABS: ALBUMIN 3.6 g/dL (3.5-5.0); ALKALINE PHOSPHATASE 85 U/L (38-126); ANION GAP 9.9 MEQ/L (5-15); BLOOD UREA NITROGEN 13 mg/dL (7-17); CHLORIDE 106 mmol/L (98-107); Calcium 8.7 mg/dL (8.4-10.2); Carbon Dioxide 26 mmol/L (22-30); Creatinine 1 0.86 mg/dL (0.52-1.04); EST GLOMERULAR FILTRATION RATE > 60.0 ML/MIN; Glucose 89 mg/dL (74-106); MAGNESIUM 1.8 mg/dL (1.6-2.3); Potassium 4.3 mmol/L (3.5-5.1); SGOT/AST 19 U/L (14-36); SGPT/ALT 16 U/L (0-35); SODIUM 138 mmol/L (137-145); Total Protein 6.9 g/dL (6.3-8.2)
[2022-11-09] MEDS: SYNTHROID 75 MCG PO SCH (09:14)
[2022-11-09] MEDS: Cardizem CD PO SCH (09:14)
[2022-11-09] MEDS: Effexor XR 75 MG PO SCH (09:14)
--- NOTE | 2022-11-09 09:29 | PCM.DS ---
Discharge Summary Date of Admission: 11/07/22 20:58 Admitting Physician: TYLER LARRY DO Consults: Consults on Case 11/08/22 09:20 Consult Cardiology ROUTINE Primary Care Provider: MARIE BHATIA Allergies Allergies Iodinated Contrast Media [Iodinated Contrast Media - IV Dye] Allergy (Mild, Verified 11/07/22 14:38) Hives shellfish derived Allergy (Verified 11/07/22 14:38) promethazine HCl [From Phenergan] Adverse Reaction (Unknown, Verified 11/07/22 14:38) syncopal, drops B/P Hospital Summary - Hospital Course Hospital Course: patient was admitted with hypertensive urgency, has had a rather sudden onset of accelerated hypertension recently, previous history of some renal dysfunction. she had a syncopal episode at work and came in extremely hypertensive by ambulance. she has responded quite well to cardizem at this time with good tolerance. MRA was negative for renal artery stenosis, hx hypothyroidism but currently euthyroid on replacement. send out labs for cortisol level and plasma metanephrines are pending. prelim report reviewed by sonographers notes on echo with nothing of concern. - Vitals & Intake/Output Vital Signs: Vital Signs Temperature 98.5 F 11/09/22 07:13 Pulse Rate 74 11/09/22 07:13 Respiratory Rate 16 11/09/22 07:13 Blood Pressure 163/82 11/09/22 07:13 O2 Sat by Pulse Oximetry 99 11/09/22 07:13 Intake & Output: Intake & Output 11/06/22 11/07/22 11/08/22 11/09/22 11:59 11:59 11:59 11:59 Intake Total 2587 2184 Output Total 200 Balance 2387 2184 Weight 63.4 kg 64.2 kg - Lab Result Diagrams: 11/09/22 05:21 11/09/22 05:21 Lab Results-Last 24 Hrs: Lab Results-Last 24 Hours 11/08/22 11/09/22 11/09/22 Range/Units Unknown 05:21 05:21 WBC 8.0 (4.0-10.5) x10^3/uL RBC 4.25 (4.1-5.4) x10^6/uL Hgb 10.5 L (12.0-16.0) g/dL Hct 33.3 L (35-47) % MCV 78.4 (78-100) fL MCH 24.7 L (26-32) pg MCHC 31.5 L (32-36) g/dL RDW 15.3 H (11.5-14.0) % Plt Count 420 (150-450) x10^3/uL MPV 9.2 (7.5-11.0) fL Gran % 50.8 (36.0-66.0) % Immature Gran % (Auto) 0.2 (0.00-0.4) % Nucleat RBC Rel Count 0.0 (0.00-0.1) % Eos # (Auto) 0.31 (0-0.5) x10^3/uL Immature Gran # (Auto) 0.02 (0.00-0.03) x10^3u/L Absolute Lymphs (auto) 2.90 (1.0-4.6) x10^3/uL Absolute Monos (auto) 0.64 (0.0-1.3) x10^3/uL Absolute Nucleated RBC 0.00 (0.00-0.01) x10^3u/L Lymphocytes % 36.2 (24.0-44.0) % Monocytes % 8.0 (0.0-12.0) % Eosinophils % 3.9 (0.00-5.0) % Basophils % 0.9 (0.0-0.4) % Absolute Granulocytes 4.08 (1.4-6.9) x10^3/uL Basophils # 0.07 (0-0.4) x10^3/uL Sodium 138 (137-145) mmol/L Potassium 4.3 (3.5-5.1) mmol/L Chloride 106 (98-107) mmol/L Carbon Dioxide 26 (22-30) mmol/L Anion Gap 9.9 (5-15) MEQ/L BUN 13 (7-17) mg/dL Creatinine 0.86 (0.52-1.04) mg/dL Estimated GFR > 60.0 ML/MIN Glucose 89 (74-106) mg/dL Calcium 8.7 (8.4-10.2) mg/dL Magnesium 1.8 (1.6-2.3) mg/dL Total Bilirubin 0.20 (0.2-1.3) mg/dL AST 19 (14-36) U/L ALT 16 (0-35) U/L Alkaline Phosphatase 85 (38-126) U/L Serum Total Protein 6.9 (6.3-8.2) g/dL Albumin 3.6 (3.5-5.0) g/dL Free T4 1.23 (0.76-1.46) ng/dL - Radiology Exams Ordered Rad Exams-Entire Visit: Radiology Procedures Category Date Time Status ECHO W/2D AND DOPPLER [US] Routine Exams 11/08/22 12:10 Taken HEAD WITHOUT CONTRAST [CT] Stat Exams 11/07/22 15:12 Completed MRA ABDOMEN W OR W/O CONTRAST [MRI] Routine Exams 11/08/22 09:00 Completed - Procedures and Test Procedures and Tests throughout Hospitalization: Therapy Orders & Screens 11/07/22 21:02 EKG REPEAT IN AM Comment: Discharge Exam General Appearance: no apparent distress Neurologic Exam: alert, oriented x 3, cooperative Respiratory Exam: normal breath sounds, lungs clear, No respiratory distress Cardiovascular Exam: regular rate/rhythm, normal heart sounds Gastrointestinal/Abdomen Exam: soft, No tenderness, No mass Extremity Exam: normal inspection, normal range of motion Skin Exam: normal color, warm, dry Final Diagnosis/Problem List - Final Discharge Diagnosis/Problem (1) Hypertensive urgency Current Visit: Yes Status: Acute Assessment & Plan: well controlled on cardizem at this time, will continue at home. some labs are pending, echo not formally read. but patient seems safe for discharge at this time and can f/u with Dr Lowe and myself after discharge. Code(s): I16.0 - HYPERTENSIVE URGENCY (2) Hypothyroidism Current Visit: Yes Status: Acute Assessment & Plan: tsh and free t4 are currently normal, continue current dose Code(s): E03.9 - HYPOTHYROIDISM, UNSPECIFIED (3) Type 2 diabetes mellitus Current Visit: Yes Status: Acute Assessment & Plan: doing well on ozempic, last a1c was 5% in may with good weight loss noted since initiation of therapy - Discharge Disposition: Home, Self-Care Condition: Fair Prescriptions: New dilTIAZem HCl [Cardizem Cd] 180 mg PO DAILY #30 cap Continue Venlafaxine HCl ER 75 mg [Effexor XR 75 MG] 150 mg PO DAILY Levothyroxine Sodium [Synthroid] 75 mcg PO DAILY Norethindrone-Ethinyl Estrad [Ovcon-35 28 Tablet] 1 tab PO DAILY Semaglutide [Ozempic] 1 mg SQ WEEKLY Discontinued Amlodipine Besylate 5 mg [Norvasc 5 mg] 2.5 mg PO DAILY Additional Instructions: GLUCOMETER, TEST STRIPS AND LANCETS CALLED INTO [facility] Follow up with: MARIE BHATIA NP [Primary Care Provider] - 11/18/22 9:30 am LEELEE LOWE [CONSULTING PHYSICIAN] -
[2022-11-09 11:34] VITALS: BP 138/71; PULSE 80; O2SAT 97
== END 2022-11-09 12:42 | disposition home or self-care (01) ==
LOC: ED 14:34 → MED SURG 20:58
PROVIDERS: ADMIT Family Medicine; ATTEND Family Medicine
DX: I16.0 Hypertensive urgency (principal); I10 Essential (primary) hypertension; R55 Syncope and collapse; E03.9 Hypothyroidism, unspecified; E11.9 Type 2 diabetes mellitus without complications; Z79.899 Other long term (current) drug therapy; Z20.828 Contact with and (suspected) exposure to other viral communicable diseases
CPT/HCPCS: 0241U; 36000; 36415; 70450; 74185; 80053; 81001; 82088; 82533; 83735; 83835; 84244; 84436; 84439; 84443; 84484; 85025; 93005; 93041; 93306; 94760; 96374; 99285; J0360; A9270-GY

== ENCOUNTER 2023-10-05 10:47 | Emergency (ER) | payer OTHER ==
[2023-10-05 11:10] VITALS: TEMP 97.6
--- NOTE | 2023-10-05 11:15 | ERPHSYRPT ---
- History of Present Illness Time Seen by Provider: 10/05/23 11:05 Source: patient, family Exam Limitations: no limitations Patient Subjective Stated Complaint: C/O B/P fluctuations while at work this am just prior to arrival in ER. Triage Nursing Assessment: Patient arrived by ambulance. She is alert and oriented. No cough. No SOB. NO pain. Skin tone normal. DEN[place]. Physician History: This is a 48-year-old white female patient of Dr. Cervantes who was brought to the emergency department by the paramedics secondary to blood pressure issues. Patient was feeling weak and tired yesterday evening without complaints of chest pain or shortness of breath and went to bed early. Additional, independent history was obtained by the patient's spouse. The patient took all her medications this morning and while at work she was feeling numbness in her feet and tingling in in her hands. Her systolic blood pressure dropped to 80s. She felt as though she was going to pass out. Patient has a history of hypertension and is on spironolactone 25 mg orally twice a day. Her hypertension is secondary to primary hyperaldosteronism. In addition, the patient has a history of hypothyroidism, hyperlipidemia and diabetes. Currently, the patient denies chest pain. She denies abdominal pain, she denies shortness of breath, she denies flulike symptoms. Patient has an appointment to see Dr. Cervantes next week. Severity: mild Associated Symptoms: denies symptoms Allergies/Adverse Reactions: Iodinated Contrast Media [Iodinated Contrast Media - IV Dye] Allergy (Mild, Verified 10/05/23 10:50) Hives shellfish derived Allergy (Verified 10/05/23 10:50) promethazine HCl [From Phenergan] Adverse Reaction (Unknown, Verified 10/05/23 10:50) syncopal, drops B/P Home Medications: Levothyroxine Sodium [Synthroid] 75 mcg PO DAILY 05/07/13 [History] Venlafaxine HCl ER 75 mg [Effexor XR 75 MG] 75 mg PO DAILY 05/07/13 [History] Norethindrone-Ethinyl Estrad [Ovcon-35 28 Tablet] 1 tab PO DAILY 02/23/15 [History] Semaglutide [Ozempic] 1 mg SQ WEEKLY 03/27/20 [History] Spironolactone 25 mg [Aldactone 25 MG] 1 tab PO BID 10/05/23 [History] Hx Tetanus, Diphtheria Vaccination/Date Given: Yes Hx Influenza Vaccination/Date Given: No Hx Pneumococcal Vaccination/Date Given: No Immunizations Up to Date: Yes Travel Risk - International Travel Have you traveled outside of the country in past 3 weeks: No - Coronavirus Screening Are you exhibiting any of the following symptoms?: No Close contact with a COVID-19 positive Pt in past 14-21 Days: No - Vaccine Status Have you recieved a Covid-19 vaccination: Yes Genetic Scientist: Moderna - Vaccination Dates Date of 2cond Vaccination (if applicable): 12/15/2020 - Review of Systems Constitutional: No Symptoms Eyes: No Symptoms Ears, Nose, & Throat: No Symptoms Respiratory: No Symptoms Cardiac: No Symptoms Abdominal/Gastrointestinal: No Symptoms Genitourinary Symptoms: No Symptoms Musculoskeletal: No Symptoms Skin: No Symptoms Neurological: No Symptoms Psychological: No Symptoms Endocrine: No Symptoms Hematologic/Lymphatic: No Symptoms Immunological/Allergic: No Symptoms All Other Systems: Reviewed and Negative - Past Medical History Pertinent Past Medical History: Yes Neurological History: Migraines ENT History: No Pertinent History Cardiac History: High Cholesterol, Hypertension Respiratory History: No Pertinent History Endocrine Medical History: Diabetes Type II, Hypothyroidism, Other Musculoskeletal History: No Pertinent History GI Medical History: Gallbladder Disease History: Renal Disease Psycho-Social History: No Pertinent History Female Reproductive Disorders: No Pertinent History Other Medical History: silent migraines, " metabolic syndrome," hyperaldosteronism - Past Surgical History Past Surgical History: Yes Neuro Surgical History: No Pertinent History Cardiac: No Pertinent History Respiratory: No Pertinent History Gastrointestinal: Cholecystectomy Genitourinary: No Pertinent History Musculoskeletal: No Pertinent History Female Surgical History: Tubal Ligation, Other Other Surgical History: BREAST REDUCTION,LAPS FOR OVARIAN CYST. - Social History Smoking Status: Former smoker Exposure to second hand smoke: No Drug Use: none Patient Lives Alone: No - Female History Hx Now: No ( control & tubal) - Nursing Vital Signs Nursing Vital Signs: Initial Vital Signs Temperature 97.6 F 10/05/23 10:54 Pulse Rate 82 10/05/23 10:54 Respiratory Rate 14 10/05/23 10:54 Blood Pressure 177/94 10/05/23 10:54 O2 Sat by Pulse Oximetry 99 10/05/23 10:54 Pain Scale Pain Intensity 0 - Physical Exam General Appearance: no apparent distress, alert, anxiety Eye Exam: PERRL/EOMI, eyes nml inspection Ears, Nose, Throat Exam: normal ENT inspection, moist mucous membranes Neck Exam: normal inspection, non-tender, supple, full range of motion Respiratory Exam: normal breath sounds, lungs clear, airway intact, No chest tenderness, No respiratory distress Cardiovascular Exam: regular rate/rhythm, normal heart sounds, normal peripheral pulses Gastrointestinal/Abdomen Exam: soft, normal bowel sounds, No tenderness Pelvic Exam: not done Rectal Exam: not done Back Exam: normal inspection, normal range of motion, No CVA tenderness, No vertebral tenderness Extremity Exam: normal inspection, normal range of motion, pelvis stable Neurologic Exam: alert, oriented x 3, cooperative, craft artist II-XII nml as tested, normal mood/affect, nml cerebellar function, nml station & gait, sensation nml Skin Exam: normal color, warm, dry Lymphatic Exam: No adenopathy SpO2 Interpretation: normal SpO2: 99 O2 Delivery: Room Air - Course Nursing assessment & vital signs reviewed: Yes EKG Interpreted by Me: RATE (80), Sinus Rhythm, NORMAL AXIS, NORMAL INTERVALS, NORMAL QRS, NORMAL ST-T, Other (No acute ischemic changes on today's twelve-lead EKG.) Ordered Tests: Active Orders 24 hr Category Date Time Status EKG-ER Only STAT Care 10/05/23 11:25 Active CBC W DIFF Stat Lab 10/05/23 11:35 Completed CMP Stat Lab 10/05/23 11:35 Completed MAG [MAGNESIUM] Stat Lab 10/05/23 11:35 Completed TROPONIN Q4H Lab 10/05/23 11:35 Completed TROPONIN Q4H Lab 10/05/23 16:00 Ordered TROPONIN Q4H Lab 10/05/23 20:00 Ordered TSH [TSH, 3RD Generation] Stat Lab 10/05/23 11:35 Completed UA W/RFX UR CULTURE Stat Lab 10/05/23 12:54 Completed Lab/Rad Data: Laboratory Result Diagrams 10/05/23 11:35 10/05/23 11:35 Laboratory Results 10/05/23 10/05/23 10/05/23 Range/Units 12:54 11:35 11:35 WBC (4.0-10.5) x10^3/uL RBC (4.1-5.4) x10^6/uL Hgb (12.0-16.0) g/dL Hct (35-47) % MCV (78-100) fL MCH (26-32) pg MCHC (32-36) g/dL RDW (11.5-14.0) % Plt Count (150-450) x10^3/uL MPV (7.5-11.0) fL Gran % (36.0-66.0) % Immature Gran % (Auto) (0.00-0.4) % Nucleat RBC Rel Count (0.00-0.1) % Eos # (Auto) (0-0.5) x10^3/uL Immature Gran # (Auto) (0.00-0.03) x10^3u/L Absolute Lymphs (auto) (1.0-4.6) x10^3/uL Absolute Monos (auto) (0.0-1.3) x10^3/uL Absolute Nucleated RBC (0.00-0.01) x10^3u/L Lymphocytes % (24.0-44.0) % Monocytes % (0.0-12.0) % Eosinophils % (0.00-5.0) % Basophils % (0.0-0.4) % Absolute Granulocytes (1.4-6.9) x10^3/uL Basophils # (0-0.4) x10^3/uL Sodium (137-145) mmol/L Potassium (3.5-5.1) mmol/L Chloride (98-107) mmol/L Carbon Dioxide (22-30) mmol/L Anion Gap (5-15) MEQ/L BUN (7-17) mg/dL Creatinine (0.52-1.04) mg/dL Estimated GFR ML/MIN Glucose (74-106) mg/dL Calcium (8.4-10.2) mg/dL Magnesium (1.6-2.3) mg/dL Total Bilirubin (0.2-1.3) mg/dL AST (14-36) U/L ALT (0-35) U/L Alkaline Phosphatase (38-126) U/L Troponin I < 0.012 (0.000-0.034) ng/mL Serum Total Protein (6.3-8.2) g/dL Albumin (3.5-5.0) g/dL Free T4 1.28 (0.78-2.19) ng/dL TSH 3rd Generation (0.47-4.68) mIU/L Urine Color Yellow (Yellow) Urine Appearance Clear (Clear) Urine pH 7.0 (4.6-8.0) Ur Specific [place] <=1.005 (1.005-1.030) Urine Protein Negative (Negative) Urine Glucose (UA) Negative (Negative) mg/dL Urine Ketones Negative (Negative) Urine Blood Trace (Negative) Urine Nitrite Negative (Negative) Urine Bilirubin Negative (Negative) Urine Urobilinogen 0.2 (0.2) mg/dL Ur Leukocyte Esterase Small A (Negative) U Hyaline Cast (Auto) NONE SEEN (0-2) /LPF Urine Microscopic RBC 0-2 (0-5) /HPF Urine Microscopic WBC 0-2 (0-5) /HPF Ur Epithelial Cells Rare (None Seen) /HPF Urine Bacteria Rare A (None Seen) /HPF Urine Culture Reflexed NO (NO) 10/05/23 10/05/23 10/05/23 Range/Units 11:35 11:35 11:35 WBC 6.5 (4.0-10.5) x10^3/uL RBC 4.39 (4.1-5.4) x10^6/uL Hgb 11.5 L (12.0-16.0) g/dL Hct 36.9 (35-47) % MCV 84.1 (78-100) fL MCH 26.2 (26-32) pg MCHC 31.2 L (32-36) g/dL RDW 14.6 H (11.5-14.0) % Plt Count 346 (150-450) x10^3/uL MPV 9.6 (7.5-11.0) fL Gran % 66.9 H (36.0-66.0) % Immature Gran % (Auto) 0.5 H (0.00-0.4) % Nucleat RBC Rel Count 0.0 (0.00-0.1) % Eos # (Auto) 0.10 (0-0.5) x10^3/uL Immature Gran # (Auto) 0.03 (0.00-0.03) x10^3u/L Absolute Lymphs (auto) 1.42 (1.0-4.6) x10^3/uL Absolute Monos (auto) 0.56 (0.0-1.3) x10^3/uL Absolute Nucleated RBC 0.00 (0.00-0.01) x10^3u/L Lymphocytes % 21.9 L (24.0-44.0) % Monocytes % 8.6 (0.0-12.0) % Eosinophils % 1.5 (0.00-5.0) % Basophils % 0.6 (0.0-0.4) % Absolute Granulocytes 4.33 (1.4-6.9) x10^3/uL Basophils # 0.04 (0-0.4) x10^3/uL Sodium 131 L (137-145) mmol/L Potassium 4.3 (3.5-5.1) mmol/L Chloride 102 (98-107) mmol/L Carbon Dioxide 25 (22-30) mmol/L Anion Gap 8.2 (5-15) MEQ/L BUN 15 (7-17) mg/dL Creatinine 0.93 (0.52-1.04) mg/dL Estimated GFR 75.8 ML/MIN Glucose 94 (74-106) mg/dL Calcium 9.0 (8.4-10.2) mg/dL Magnesium 1.8 (1.6-2.3) mg/dL Total Bilirubin 0.30 (0.2-1.3) mg/dL AST 20 (14-36) U/L ALT 11 (0-35) U/L Alkaline Phosphatase 76 (38-126) U/L Troponin I (0.000-0.034) ng/mL Serum Total Protein 7.2 (6.3-8.2) g/dL Albumin 3.9 (3.5-5.0) g/dL Free T4 (0.78-2.19) ng/dL TSH 3rd Generation 0.873 (0.47-4.68) mIU/L Urine Color (Yellow) Urine Appearance (Clear) Urine pH (4.6-8.0) Ur Specific [place] (1.005-1.030) Urine Protein (Negative) Urine Glucose (UA) (Negative) mg/dL Urine Ketones (Negative) Urine Blood (Negative) Urine Nitrite (Negative) Urine Bilirubin (Negative) Urine Urobilinogen (0.2) mg/dL Ur Leukocyte Esterase (Negative) U Hyaline Cast (Auto) (0-2) /LPF Urine Microscopic RBC (0-5) /HPF Urine Microscopic WBC (0-5) /HPF Ur Epithelial Cells (None Seen) /HPF Urine Bacteria (None Seen) /HPF Urine Culture Reflexed (NO) - Progress Progress: improved Progress Note: 10/05/23 11:57 This patient's medical issue is 1 of moderate complexity. The level of complexity in the workup performed is based on review of the patient's past medical history, review of the patient's medication list, review of the patient's drug allergy list, history present illness and physical findings on examination. The workup in this patient includes twelve-lead EKG, CBC, CMP, magnesium level, urinalysis, free T4 and TSH levels, troponin level. 10/05/23 13:28 I interpreted the patient's laboratory data results. There is no evidence of any acute or emergent abnormality based on the laboratory results today. Patient has no chest pain. She is not dizzy. Her systolic blood pressure at this time is 138. She states she is feeling well. Counseled pt/family regarding: lab results, diagnosis, need for follow-up Medical Desision Making - Independent Historian Additional History obtained from: Spouse - Diagnostic Testing Diagnostic test were ordered, analyzed, and reviewed by me: Yes - Risk of complications Low Risk: Low risk of morbidity from additional dx testing or treatment - Departure Departure Disposition: Home Clinical Impression: Blood pressure alteration Condition: Stable Critical Care Time: No Referrals: MARIE BHATIA NP [NON-STAFF PHY W/O PRIVILEGES] - Follow up/PCP as directed Additional Instructions: Drink plenty fluids. Take your medications as prescribed. Keep your appointment with Dr. Cervantes next week.
[2023-10-05 11:46] LABS: Absolute Neutrophil Ct (ANC) 4.33 x10^3/uL (1.4-6.9); BASOPHIL % 0.6 % (0.0-0.4); Basophil (Absolute #) 0.04 x10^3/uL (0-0.4); Eosinophil % 1.5 % (0.00-5.0); Hematocrit 36.9 % (35-47); Hemoglobin 11.5 g/dL (12.0-16.0); IMMATURE GRAN # 0.03 x10^3u/L (0.00-0.03); IMMATURE GRAN % 0.5 % (0.00-0.4); Lymphocyte (Absolute #) 1.42 x10^3/uL (1.0-4.6); Lymphocytes % 21.9 % (24.0-44.0); Mean Cell Volume 84.1 fL (78-100); Mean Corpuscular Hemoglobin 26.2 pg (26-32); Mean Corpuscular Hgb Concent. 31.2 g/dL (32-36); Mean Platelet Volume 9.6 fL (7.5-11.0); Monocyte (Absolute #) 0.56 x10^3/uL (0.0-1.3); Monocytes % 8.6 % (0.0-12.0); Neutrophil % 66.9 % (36.0-66.0); Platelet Count 346 x10^3/uL (150-450); Red Blood Count 4.39 x10^6/uL (4.1-5.4); Red Cell Distribution Width 14.6 % (11.5-14.0); White Blood Count 6.5 x10^3/uL (4.0-10.5)
[2023-10-05 11:55] LABS: ALBUMIN 3.9 g/dL (3.5-5.0); ANION GAP 8.2 MEQ/L (5-15); BILIRUBIN,TOTAL 0.3 mg/dL (0.2-1.3); Creatinine 1 0.93 mg/dL (0.52-1.04); EST GLOMERULAR FILTRATION RATE 75.8 ML/MIN; MAGNESIUM 1.8 mg/dL (1.6-2.3); Potassium 4.3 mmol/L (3.5-5.1); Total Protein 7.2 g/dL (6.3-8.2)
[2023-10-05 13:07] VITALS: BP 149/91; PULSE 81; RESP 16
[2023-10-05 13:18] LABS: Appearance Clear (Clear); Bilirubin Negative (Negative); Blood Trace (Negative); Epithelial Cells Rare /HPF (None Seen); Glucose, Urine Negative (Negative); Hyaline Casts NONE SEEN /LPF (0-2); Ketones Negative (Negative); Nitrite Negative (Negative); Protein,Urine Dip Negative (Negative); RBC 0-2 /HPF (0-5); Specific Gravity <=1.005 (1.005-1.030); Urobilinogen 0.2 mg/dL (0.2)
[2023-10-05 13:19] LABS: Bacteria Rare /HPF (None Seen); Leukocyte Esterase Small (Negative); WBC 0-2 /HPF (0-5)
[2023-10-05 13:20] LABS: ADD URINE CULTURE? NO (NO)
[2023-10-05 13:30] VITALS: O2SAT 99
== END 2023-10-05 13:46 | disposition home or self-care (01) ==
LOC: ED 10:47
DX: I99.8 Other disorder of circulatory system (principal); R20.2 Paresthesia of skin; E26.9 Hyperaldosteronism, unspecified; I15.2 Hypertension secondary to endocrine disorders; E78.5 Hyperlipidemia, unspecified; E11.9 Type 2 diabetes mellitus without complications; Z79.85 Long-term (current) use of injectable non-insulin antidiabetic drugs; Z79.899 Other long term (current) drug therapy
CPT/HCPCS: 36415; 80053; 81001; 83735; 84439; 84443; 84484; 85025; 93005; 99283

== ENCOUNTER 2023-10-12 04:05 | Emergency (ER) | payer OTHER ==
[2023-10-12 04:22] VITALS: TEMP 98.3
--- NOTE | 2023-10-12 04:59 | ERPHSYRPT ---
- History of Present Illness Time Seen by Provider: 10/12/23 04:30 Source: patient Exam Limitations: no limitations Patient Subjective Stated Complaint: Hypertension Triage Nursing Assessment: Patient brought into ED per w/c and transferred self to bed. Patient A+O X3. Patient's skin pink, warm and dry. Patient complains of HTN. Patient states she woke up from sleep with a high heart rate. Patient complains of HTN, headache 5/10 and nausea. Physician History: 48-year-old female here for evaluation. Patient states she woke up with a fast heart rate. She checked her blood pressure it was elevated. No chest pain. Patient is concerned. No nausea vomiting or diaphoresis. No trauma. No fever. No rash. Patient vitals have since normalized. Symptoms were transient. When present symptoms were moderate in intensity. No specific worsening or improving factors as patient was sleeping. Patient has a history of hyperaldosteronism and she is concerned that maybe there is an issue with her aldosterone levels at this time. Patient voices no other complaints or concerns at this time. Portions of this note were created with voice recognition technology. There may be grammatical, spelling, punctuation or sound alike errors Timing/Duration: today Severity: moderate Modifying Factors: Improves With: nothing Associated Symptoms: headaches Allergies/Adverse Reactions: Iodinated Contrast Media [Iodinated Contrast Media - IV Dye] Allergy (Mild, Verified 10/12/23 04:14) Hives shellfish derived Allergy (Verified 10/12/23 04:14) promethazine HCl [From Phenergan] Adverse Reaction (Unknown, Verified 10/12/23 04:14) syncopal, drops B/P Home Medications: Levothyroxine Sodium [Synthroid] 75 mcg PO DAILY 05/07/13 [History] Venlafaxine HCl ER 75 mg [Effexor XR 75 MG] 75 mg PO DAILY 05/07/13 [History] Norethindrone-Ethinyl Estrad [Ovcon-35 28 Tablet] 1 tab PO DAILY 02/23/15 [History] Semaglutide [Ozempic] 1 mg SQ WEEKLY 03/27/20 [History] Spironolactone 25 mg [Aldactone 25 MG] 1 tab PO BID 10/05/23 [History] Hx Tetanus, Diphtheria Vaccination/Date Given: Yes Hx Influenza Vaccination/Date Given: No Hx Pneumococcal Vaccination/Date Given: No Immunizations Up to Date: Yes Travel Risk - International Travel Have you traveled outside of the country in past 3 weeks: No - Coronavirus Screening Are you exhibiting any of the following symptoms?: No Close contact with a COVID-19 positive Pt in past 14-21 Days: No - Vaccine Status Have you recieved a Covid-19 vaccination: Yes Emergency Response Coordinator: Moderna - Vaccination Dates Date of 2cond Vaccination (if applicable): 12/15/2020 - Review of Systems Constitutional: No Symptoms, No Fever, No Chills Eyes: No Symptoms Ears, Nose, & Throat: No Symptoms Respiratory: No Symptoms, No Cough, No Dyspnea Cardiac: No Symptoms, No Chest Pain, No Edema, No Syncope Abdominal/Gastrointestinal: No Symptoms, No Abdominal Pain, No Nausea, No Vomiting, No Diarrhea Genitourinary Symptoms: No Symptoms, No Dysuria Musculoskeletal: No Symptoms, No Back Pain, No Neck Pain Skin: No Symptoms, No Rash Neurological: No Symptoms, No Dizziness, No Focal Weakness, No Sensory Changes Psychological: No Symptoms Endocrine: No Symptoms Hematologic/Lymphatic: No Symptoms Immunological/Allergic: No Symptoms All Other Systems: Reviewed and Negative - Past Medical History Pertinent Past Medical History: Yes Neurological History: Migraines ENT History: No Pertinent History Cardiac History: High Cholesterol, Hypertension Respiratory History: No Pertinent History Endocrine Medical History: Diabetes Type II, Hypothyroidism, Other Musculoskeletal History: No Pertinent History GI Medical History: Gallbladder Disease History: Renal Disease Psycho-Social History: No Pertinent History Female Reproductive Disorders: No Pertinent History Other Medical History: silent migraines, " metabolic syndrome," hyperaldosteronism - Past Surgical History Past Surgical History: Yes Neuro Surgical History: No Pertinent History Cardiac: No Pertinent History Respiratory: No Pertinent History Gastrointestinal: Cholecystectomy Genitourinary: No Pertinent History Musculoskeletal: No Pertinent History Female Surgical History: Tubal Ligation, Other Other Surgical History: BREAST REDUCTION,LAPS FOR OVARIAN CYST. - Social History Smoking Status: Former smoker Exposure to second hand smoke: No Drug Use: none Patient Lives Alone: No - Female History Hx Last Menstrual Period: currently Hx Now: No - Nursing Vital Signs Nursing Vital Signs: Initial Vital Signs Temperature 98.3 F 10/12/23 04:16 Pulse Rate 100 H 10/12/23 04:16 Respiratory Rate 18 10/12/23 04:16 Blood Pressure 164/124 10/12/23 04:16 O2 Sat by Pulse Oximetry 100 10/12/23 04:16 Pain Scale Pain Intensity 0 - Physical Exam General Appearance: no apparent distress, alert Eye Exam: PERRL/EOMI, eyes nml inspection Ears, Nose, Throat Exam: normal ENT inspection, TMs normal, pharynx normal, moist mucous membranes Neck Exam: normal inspection, non-tender, supple, full range of motion Respiratory Exam: normal breath sounds, lungs clear, No respiratory distress Cardiovascular Exam: regular rate/rhythm, normal heart sounds, normal peripheral pulses Gastrointestinal/Abdomen Exam: soft, normal bowel sounds, No tenderness, No mass Back Exam: normal inspection, normal range of motion, No CVA tenderness, No vertebral tenderness Extremity Exam: normal inspection, normal range of motion, pelvis stable Neurologic Exam: alert, oriented x 3, cooperative, normal mood/affect, sensation nml, No motor deficits Skin Exam: normal color, warm, dry, No rash Lymphatic Exam: No adenopathy SpO2 Interpretation: normal SpO2: 100 O2 Delivery: Room Air - Course Nursing assessment & vital signs reviewed: Yes EKG Interpreted by Me: RATE (85), Sinus Rhythm, NORMAL AXIS, NORMAL INTERVALS - Radiology Exams Chest X-ray Interpretation: Interpreted by me (Non acute chest) Ordered Tests: Active Orders 24 hr Category Date Time 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 10/12/23 04:53 Active EKG-ER Only STAT Care 10/12/23 04:52 Active IV Insertion STAT Care 10/12/23 04:52 Active Pulse Oximetry (ED) STAT Care 10/12/23 04:52 Active CHEST 1 VIEW (PORTABLE) Stat Exams 10/12/23 06:13 Taken CBC W DIFF Stat Lab 10/12/23 05:00 Completed CMP Stat Lab 10/12/23 05:00 Completed D-DIMER QUANTITATIVE Stat Lab 10/12/23 05:00 Completed NT PRO BNPII Stat Lab 10/12/23 05:00 Completed TROPONIN Q4H Lab 10/12/23 05:00 Completed TROPONIN Q4H Lab 10/12/23 06:34 Received TROPONIN Q4H Lab 10/12/23 13:00 Ordered UA W/RFX UR CULTURE Stat Lab 10/12/23 06:03 Completed Urine Triage Profile Stat Lab 10/12/23 06:03 Completed Holter Monitor ONCE RT 10/12/23 06:16 Completed Lab/Rad Data: Laboratory Result Diagrams 10/12/23 05:00 10/12/23 05:00 Laboratory Results 10/12/23 10/12/23 10/12/23 Range/Units 06:03 06:03 05:00 WBC (4.0-10.5) x10^3/uL RBC (4.1-5.4) x10^6/uL Hgb (12.0-16.0) g/dL Hct (35-47) % MCV (78-100) fL MCH (26-32) pg MCHC (32-36) g/dL RDW (11.5-14.0) % Plt Count (150-450) x10^3/uL MPV (7.5-11.0) fL Gran % (36.0-66.0) % Immature Gran % (Auto) (0.00-0.4) % Nucleat RBC Rel Count (0.00-0.1) % Eos # (Auto) (0-0.5) x10^3/uL Immature Gran # (Auto) (0.00-0.03) x10^3u/L Absolute Lymphs (auto) (1.0-4.6) x10^3/uL Absolute Monos (auto) (0.0-1.3) x10^3/uL Absolute Nucleated RBC (0.00-0.01) x10^3u/L Lymphocytes % (24.0-44.0) % Monocytes % (0.0-12.0) % Eosinophils % (0.00-5.0) % Basophils % (0.0-0.4) % Absolute Granulocytes (1.4-6.9) x10^3/uL Basophils # (0-0.4) x10^3/uL D-Dimer (0.0-0.50) mg/L Sodium (137-145) mmol/L Potassium (3.5-5.1) mmol/L Chloride (98-107) mmol/L Carbon Dioxide (22-30) mmol/L Anion Gap (5-15) MEQ/L BUN (7-17) mg/dL Creatinine (0.52-1.04) mg/dL Estimated GFR ML/MIN Glucose (74-106) mg/dL Calcium (8.4-10.2) mg/dL Total Bilirubin (0.2-1.3) mg/dL AST (14-36) U/L ALT (0-35) U/L Alkaline Phosphatase (38-126) U/L Troponin I (0.000-0.034) ng/mL NT-Pro-B Natriuret Pep 63.6 (<300) pg/mL Serum Total Protein (6.3-8.2) g/dL Albumin (3.5-5.0) g/dL Urine Color Yellow (Yellow) Urine Appearance Clear (Clear) Urine pH 6.0 (4.6-8.0) Ur Specific [place] 1.020 (1.005-1.030) Urine Protein Trace A (Negative) Urine Glucose (UA) Negative (Negative) mg/dL Urine Ketones Negative (Negative) Urine Blood Large A (Negative) Urine Nitrite Negative (Negative) Urine Bilirubin Negative (Negative) Urine Urobilinogen 0.2 (0.2) mg/dL Ur Leukocyte Esterase Negative (Negative) U Hyaline Cast (Auto) NONE SEEN (0-2) /LPF Urine Microscopic RBC 21-50 A (0-5) /HPF Urine Microscopic WBC 0-2 (0-5) /HPF Ur Epithelial Cells Few (None Seen) /HPF Urine Bacteria None Seen (None Seen) /HPF Urine Culture Reflexed NO (NO) Urine Opiates Level NEGATIVE (NEGATIVE) Ur Methadone NEGATIVE (NEGATIVE) Urine Barbiturates NEGATIVE (NEGATIVE) Ur Phencyclidine (PCP) NEGATIVE (NEGATIVE) Urine Amphetamine NEGATIVE (NEGATIVE) U Benzodiazepine Level NEGATIVE (NEGATIVE) Urine Cocaine NEGATIVE (NEGATIVE) Urine Marijuana (THC) NEGATIVE (NEGATIVE) 10/12/23 10/12/23 10/12/23 Range/Units 05:00 05:00 05:00 WBC (4.0-10.5) x10^3/uL RBC (4.1-5.4) x10^6/uL Hgb (12.0-16.0) g/dL Hct (35-47) % MCV (78-100) fL MCH (26-32) pg MCHC (32-36) g/dL RDW (11.5-14.0) % Plt Count (150-450) x10^3/uL MPV (7.5-11.0) fL Gran % (36.0-66.0) % Immature Gran % (Auto) (0.00-0.4) % Nucleat RBC Rel Count (0.00-0.1) % Eos # (Auto) (0-0.5) x10^3/uL Immature Gran # (Auto) (0.00-0.03) x10^3u/L Absolute Lymphs (auto) (1.0-4.6) x10^3/uL Absolute Monos (auto) (0.0-1.3) x10^3/uL Absolute Nucleated RBC (0.00-0.01) x10^3u/L Lymphocytes % (24.0-44.0) % Monocytes % (0.0-12.0) % Eosinophils % (0.00-5.0) % Basophils % (0.0-0.4) % Absolute Granulocytes (1.4-6.9) x10^3/uL Basophils # (0-0.4) x10^3/uL D-Dimer < 0.19 (0.0-0.50) mg/L Sodium 135 L (137-145) mmol/L Potassium 4.2 (3.5-5.1) mmol/L Chloride 106 (98-107) mmol/L Carbon Dioxide 22 (22-30) mmol/L Anion Gap 11.2 (5-15) MEQ/L BUN 17 (7-17) mg/dL Creatinine 0.81 (0.52-1.04) mg/dL Estimated GFR 89.5 ML/MIN Glucose 86 (74-106) mg/dL Calcium 9.1 (8.4-10.2) mg/dL Total Bilirubin 0.40 (0.2-1.3) mg/dL AST 25 (14-36) U/L ALT 13 (0-35) U/L Alkaline Phosphatase 77 (38-126) U/L Troponin I < 0.012 (0.000-0.034) ng/mL NT-Pro-B Natriuret Pep (<300) pg/mL Serum Total Protein 7.3 (6.3-8.2) g/dL Albumin 4.0 (3.5-5.0) g/dL Urine Color (Yellow) Urine Appearance (Clear) Urine pH (4.6-8.0) Ur Specific [place] (1.005-1.030) Urine Protein (Negative) Urine Glucose (UA) (Negative) mg/dL Urine Ketones (Negative) Urine Blood (Negative) Urine Nitrite (Negative) Urine Bilirubin (Negative) Urine Urobilinogen (0.2) mg/dL Ur Leukocyte Esterase (Negative) U Hyaline Cast (Auto) (0-2) /LPF Urine Microscopic RBC (0-5) /HPF Urine Microscopic WBC (0-5) /HPF Ur Epithelial Cells (None Seen) /HPF Urine Bacteria (None Seen) /HPF Urine Culture Reflexed (NO) Urine Opiates Level (NEGATIVE) Ur Methadone (NEGATIVE) Urine Barbiturates (NEGATIVE) Ur Phencyclidine (PCP) (NEGATIVE) Urine Amphetamine (NEGATIVE) U Benzodiazepine Level (NEGATIVE) Urine Cocaine (NEGATIVE) Urine Marijuana (THC) (NEGATIVE) 10/12/23 Range/Units 05:00 WBC 5.8 (4.0-10.5) x10^3/uL RBC 4.61 (4.1-5.4) x10^6/uL Hgb 12.2 (12.0-16.0) g/dL Hct 38.5 (35-47) % MCV 83.5 (78-100) fL MCH 26.5 (26-32) pg MCHC 31.7 L (32-36) g/dL RDW 14.5 H (11.5-14.0) % Plt Count 343 (150-450) x10^3/uL MPV 10.0 (7.5-11.0) fL Gran % 40.9 (36.0-66.0) % Immature Gran % (Auto) 0.2 (0.00-0.4) % Nucleat RBC Rel Count 0.0 (0.00-0.1) % Eos # (Auto) 0.25 (0-0.5) x10^3/uL Immature Gran # (Auto) 0.01 (0.00-0.03) x10^3u/L Absolute Lymphs (auto) 2.58 (1.0-4.6) x10^3/uL Absolute Monos (auto) 0.51 (0.0-1.3) x10^3/uL Absolute Nucleated RBC 0.00 (0.00-0.01) x10^3u/L Lymphocytes % 44.8 H (24.0-44.0) % Monocytes % 8.9 (0.0-12.0) % Eosinophils % 4.3 (0.00-5.0) % Basophils % 0.9 (0.0-0.4) % Absolute Granulocytes 2.36 (1.4-6.9) x10^3/uL Basophils # 0.05 (0-0.4) x10^3/uL D-Dimer (0.0-0.50) mg/L Sodium (137-145) mmol/L Potassium (3.5-5.1) mmol/L Chloride (98-107) mmol/L Carbon Dioxide (22-30) mmol/L Anion Gap (5-15) MEQ/L BUN (7-17) mg/dL Creatinine (0.52-1.04) mg/dL Estimated GFR ML/MIN Glucose (74-106) mg/dL Calcium (8.4-10.2) mg/dL Total Bilirubin (0.2-1.3) mg/dL AST (14-36) U/L ALT (0-35) U/L Alkaline Phosphatase (38-126) U/L Troponin I (0.000-0.034) ng/mL NT-Pro-B Natriuret Pep (<300) pg/mL Serum Total Protein (6.3-8.2) g/dL Albumin (3.5-5.0) g/dL Urine Color (Yellow) Urine Appearance (Clear) Urine pH (4.6-8.0) Ur Specific [place] (1.005-1.030) Urine Protein (Negative) Urine Glucose (UA) (Negative) mg/dL Urine Ketones (Negative) Urine Blood (Negative) Urine Nitrite (Negative) Urine Bilirubin (Negative) Urine Urobilinogen (0.2) mg/dL Ur Leukocyte Esterase (Negative) U Hyaline Cast (Auto) (0-2) /LPF Urine Microscopic RBC (0-5) /HPF Urine Microscopic WBC (0-5) /HPF Ur Epithelial Cells (None Seen) /HPF Urine Bacteria (None Seen) /HPF Urine Culture Reflexed (NO) Urine Opiates Level (NEGATIVE) Ur Methadone (NEGATIVE) Urine Barbiturates (NEGATIVE) Ur Phencyclidine (PCP) (NEGATIVE) Urine Amphetamine (NEGATIVE) U Benzodiazepine Level (NEGATIVE) Urine Cocaine (NEGATIVE) Urine Marijuana (THC) (NEGATIVE) - Progress Progress: improved Progress Note: 40-year-old female presents to our ED with acute onset heart palpitations while sleeping. Patient awoke with symptoms. However heart palpitations resolved prior to arrival. Physical exam essentially nonremarkable. Preliminary workup nonremarkable. D-dimer negative. Troponin negative. Basic lab essentially nonremarkable. Chest x-ray negative for acute pathology. Patient currently asymptomatic. No indication for further workup at this time. Patient currently asymptomatic. Will apply 48-hour Holter monitor for continued monitoring. Patient agrees to follow-up with primary care doctor within 48 hours for evaluation. Portions of this note were created with voice recognition technology. There may be grammatical, spelling, punctuation or sound alike errors Complexity problem addressed is moderate acute complicated No critical care time Complex of data reviewed and analyzed is moderate. Test ordered test reviewed. Results analyzed and correlated clinically with history and physical exam. Risk of complication and or risk of morbidity/mortality of patient management is moderate. Holter monitor placed for further monitoring/rule out transient intermittent dysrhythmia Vital stable. Time spent to discharge patient is approximately 15 minutes. Plan of care established for shared decision making. No social determinants of health present impede follow-up. Portions of this note were created with voice recognition technology. There may be grammatical, spelling, punctuation or sound alike errors 10/12/23 06:17 Patient states she is currently on her menstrual cycle which explains the hematuria. 10/12/23 07:07 Counseled pt/family regarding: lab results, diagnosis - Departure Departure Disposition: Home Clinical Impression: Heart palpitations, Microscopic hematuria Condition: Stable Critical Care Time: No Referrals: ALMA DELIA SEE MD [Primary Care Provider] - Follow up/PCP as directed Additional Instructions: Discharge/Care Plan ANUJA CHONG was seen on 10/12/23 in the Emergency Room. The patient was counseled regarding Diagnosis,Lab results, Imaging studies, need for follow up and when to return to the Emergency Room. Prescriptions given: Discharge Note I have spoken with the patient and/or caregivers. I have explained the patient's condition, diagnosis and treatment plan based on the information available to me at this time. I have answered the patient's and/or caregiver's questions and addressed any concerns. The patient and/or caregivers have as good understanding of the patient's diagnosis, condition and treatment plan as can be expected at this point. The vital signs have been stable. The patient's condition is stable and appropriate for discharge from the emergency department. The patient will pursue further outpatient evaluation with the primary care physician or other designated or consulting physician as outlined in the discharge instructions. The patient and/or caregivers are agreeable to this plan of care and follow-up instructions have been explained in detail. The patient and/or caregivers have received these instruction. The patient/and or caregivers are aware that any significant change in condition or worsening of symptoms should prompt an immediate return to this or the closest emergency department or call 911.
[2023-10-12 05:07] LABS: Absolute Neutrophil Ct (ANC) 2.36 x10^3/uL (1.4-6.9); BASOPHIL % 0.9 % (0.0-0.4); Basophil (Absolute #) 0.05 x10^3/uL (0-0.4); Eosinophil % 4.3 % (0.00-5.0); Eosinophil (Absolute #) 0.25 x10^3/uL (0-0.5); Hematocrit 38.5 % (35-47); Hemoglobin 12.2 g/dL (12.0-16.0); IMMATURE GRAN # 0.01 x10^3u/L (0.00-0.03); IMMATURE GRAN % 0.2 % (0.00-0.4); Lymphocyte (Absolute #) 2.58 x10^3/uL (1.0-4.6); Lymphocytes % 44.8 % (24.0-44.0); Mean Cell Volume 83.5 fL (78-100); Mean Corpuscular Hemoglobin 26.5 pg (26-32); Mean Corpuscular Hgb Concent. 31.7 g/dL (32-36); Monocyte (Absolute #) 0.51 x10^3/uL (0.0-1.3); Monocytes % 8.9 % (0.0-12.0); Neutrophil % 40.9 % (36.0-66.0); Platelet Count 343 x10^3/uL (150-450); Red Blood Count 4.61 x10^6/uL (4.1-5.4); Red Cell Distribution Width 14.5 % (11.5-14.0); White Blood Count 5.8 x10^3/uL (4.0-10.5)
[2023-10-12 05:20] LABS: ANION GAP 11.2 MEQ/L (5-15); BILIRUBIN,TOTAL 0.4 mg/dL (0.2-1.3); Calcium 9.1 mg/dL (8.4-10.2); Creatinine 1 0.81 mg/dL (0.52-1.04); EST GLOMERULAR FILTRATION RATE 89.5 ML/MIN; Total Protein 7.3 g/dL (6.3-8.2)
[2023-10-12 05:21] LABS: Potassium 4.2 mmol/L (3.5-5.1)
[2023-10-12 06:14] LABS: Appearance Clear (Clear); Bacteria None Seen /HPF (None Seen); Bilirubin Negative (Negative); Blood Large (Negative); Epithelial Cells Few /HPF (None Seen); Glucose, Urine Negative (Negative); Hyaline Casts NONE SEEN /LPF (0-2); Ketones Negative (Negative); Leukocyte Esterase Negative (Negative); Nitrite Negative (Negative); Protein,Urine Dip Trace (Negative); RBC 21-50 /HPF (0-5); Urobilinogen 0.2 mg/dL (0.2); WBC 0-2 /HPF (0-5)
[2023-10-12 06:18] LABS: ADD URINE CULTURE? NO (NO)
[2023-10-12 06:22] LABS: Amphetamine,Urine NEGATIVE (NEGATIVE); Barbiturate,Urine NEGATIVE (NEGATIVE); Benzodiazepine,Urine NEGATIVE (NEGATIVE); Cocaine,Urine NEGATIVE (NEGATIVE); Methadone,Urine NEGATIVE (NEGATIVE); Opiate,Urine NEGATIVE (NEGATIVE); PCP,Urine NEGATIVE (NEGATIVE); THC,Urine NEGATIVE (NEGATIVE)
[2023-10-12 06:41] VITALS: PULSE 78
[2023-10-12 07:12] VITALS: BP 137/96; RESP 18; O2SAT 98
--- NOTE | 2023-10-12 08:48 | XRAY ---
Indication: Chest pain. Comparison: May 20, 2021 Portable chest again demonstrates normal heart and lungs. Bony thorax intact. No new/acute findings.
== END 2023-10-12 07:13 | disposition home or self-care (01) ==
LOC: ED 04:05
DX: R00.2 Palpitations (principal); R31.21 Asymptomatic microscopic hematuria; E78.5 Hyperlipidemia, unspecified; I10 Essential (primary) hypertension; E11.9 Type 2 diabetes mellitus without complications; Z79.85 Long-term (current) use of injectable non-insulin antidiabetic drugs; Z79.899 Other long term (current) drug therapy
CPT/HCPCS: 36000; 36415; 71045; 80053; 80307; 81001; 83880; 84484; 85025; 85379; 93005; 93041; 94760; 99284

== ENCOUNTER 2024-07-21 09:02 | Emergency (ER) | payer OTHER ==
[2024-07-21 09:14] VITALS: TEMP 99
--- NOTE | 2024-07-21 09:36 | ERPHSYRPT ---
- History of Present Illness Time Seen by Provider: 07/21/24 09:31 Source: patient Exam Limitations: no limitations Patient Subjective Stated Complaint: pt has an adrenal disorder and feels that something may be out of whack and is dizzy and having hypertension and tachyca rdia and had syncopal episode on Monday Triage Nursing Assessment: Pt brought self to the ER, hypertensive, tachycardic, denies pain, pulses normal, skin n/w/d, felt like she was going to pass out this morning, no difficulty breathing, doesn't appear to be in any distress Physician History: Patient is 48-year-old female with significant past medical history of polycystic ovarian syndrome metabolic syndrome hyperaldosteronism with hypertension was at work last Monday which was 3 days ago and passed out for few seconds at that point of time her blood pressure was high she regained her consciousness within few seconds and since then she has been feeling very weak and lethargic she is also complaining of mild headache as well as dizziness she took some extra spironolactone but without any help and her blood pressure continues to stay high so she came to the emergency room. In emergency room her main complaint was dizziness and lightheadedness she denies any nausea vomiting chest pain blood in the stool or urine any abdominal pain. Timing/Duration: day(s) (3 days ago) Activities at Onset: none Severity of Pain-Max: none Severity of Pain-Current: none Nitro Today/Relief: no nitro taken today Aspirin Treatment Today: no aspirin today Associated Symptoms: headaches, syncope, weakness, No nausea, No vomiting, No abdominal pain, No shortness of breath, No cough, No chills, No chest pain, No fever, No seizure Prior Chest Pain/Cardiac Workup: no prior chest pain Allergies/Adverse Reactions: Iodinated Contrast Media [Iodinated Contrast Media - IV Dye] Allergy (Mild, Verified 07/21/24 09:14) Hives shellfish derived Allergy (Verified 07/21/24 09:14) promethazine HCl [From Phenergan] Adverse Reaction (Unknown, Verified 07/21/24 09:14) syncopal, drops B/P Home Medications: Levothyroxine Sodium [Synthroid] 75 mcg PO DAILY 05/07/13 [History] Venlafaxine HCl ER 75 mg [Effexor XR 75 MG] 75 mg PO DAILY 05/07/13 [History] Norethindrone-Ethinyl Estrad [Ovcon-35 28 Tablet] 1 tab PO DAILY 02/23/15 [History] Spironolactone 25 mg [Aldactone 25 MG] 1 tab PO BID 10/05/23 [History] Testosterone 10 gm TD UD 07/21/24 [History] Tirzepatide [Mounjaro] 7.5 mg SQ WEEKLY 07/21/24 [History] Hx Tetanus, Diphtheria Vaccination/Date Given: Yes Hx Influenza Vaccination/Date Given: No Hx Pneumococcal Vaccination/Date Given: No Travel Risk - International Travel Have you traveled outside of the country in past 3 weeks: No - Emerging Infectious Disease Are you exhibiting symptoms associated with any current EIDs: No - Review of Systems Constitutional: Weakness, No Fever, No Chills Eyes: No Symptoms Ears, Nose, & Throat: No Symptoms Respiratory: No Cough, No Dyspnea Cardiac: No Chest Pain, No Edema, No Syncope Abdominal/Gastrointestinal: No Abdominal Pain, No Nausea, No Vomiting, No Diarrhea Genitourinary Symptoms: No Dysuria Musculoskeletal: No Back Pain, No Neck Pain Skin: No Rash Neurological: No Dizziness, No Focal Weakness, No Sensory Changes Psychological: No Symptoms Endocrine: No Symptoms All Other Systems: Reviewed and Negative - Past Medical History Pertinent Past Medical History: Yes Neurological History: Migraines ENT History: No Pertinent History Cardiac History: High Cholesterol, Hypertension Respiratory History: No Pertinent History Endocrine Medical History: Diabetes Type II, Hypothyroidism, Other Musculoskeletal History: No Pertinent History GI Medical History: Gallbladder Disease History: Renal Disease Psycho-Social History: No Pertinent History Female Reproductive Disorders: No Pertinent History Other Medical History: silent migraines, " metabolic syndrome," hyperaldosteronism - Past Surgical History Past Surgical History: Yes Neuro Surgical History: No Pertinent History Cardiac: No Pertinent History Respiratory: No Pertinent History Gastrointestinal: Cholecystectomy Genitourinary: No Pertinent History Musculoskeletal: No Pertinent History Female Surgical History: Tubal Ligation, Other Other Surgical History: BREAST REDUCTION,LAPS FOR OVARIAN CYST. - Female History Hx Last Menstrual Period: getting ready to start and is on BC Hx Now: No - Social History Smoking Status: Former smoker Exposure to second hand smoke: No Drug Use: none Patient Lives Alone: No - Social Determinants of Health Will the patient participate in the screening: Yes Do you worry about a steady place to live?: No Do you have any problems with any of the following?: No known problems In the past 12 months,have you had to go without utilities?: No Transportation Issues: No Has anyone in your support network made you feel unsafe?: No Have you or anyone in your house had to go without enough: No - Nursing Vital Signs Nursing Vital Signs: Initial Vital Signs Temperature 99.0 F 07/21/24 09:07 Pulse Rate 108 H 07/21/24 09:07 Respiratory Rate 15 07/21/24 09:07 Blood Pressure 180/127 07/21/24 09:07 O2 Sat by Pulse Oximetry 98 07/21/24 09:07 Pain Scale Pain Intensity 0 - Physical Exam General Appearance: no apparent distress, alert Eye Exam: PERRL/EOMI, eyes nml inspection Ears, Nose, Throat Exam: normal ENT inspection, moist mucous membranes Neck Exam: normal inspection, non-tender, supple Respiratory Exam: normal breath sounds, lungs clear, No respiratory distress Cardiovascular Exam: regular rate/rhythm, normal heart sounds, No edema Gastrointestinal/Abdomen Exam: soft, No tenderness, No mass Back Exam: normal inspection, No CVA tenderness, No vertebral tenderness Extremity Exam: normal inspection, normal range of motion Neurologic Exam: alert, oriented x 3, cooperative, normal mood/affect, nml cerebellar function, sensation nml, No motor deficits Skin Exam: normal color, warm, dry Lymphatic Exam: No adenopathy SpO2 Interpretation: normal SpO2: 100 O2 Delivery: Room Air - Course Nursing assessment & vital signs reviewed: Yes EKG Interpreted by Me: Sinus Rhythm - Radiology Exams Chest X-ray Interpretation: Interpreted by me, Reviewed by me, Negative, No Pneumonia Ordered Tests: Active Orders 24 hr Category Date Time Status Measurement Specialist STAT Care 07/21/24 09:22 Active EKG-ER Only STAT Care 07/21/24 09:21 Active IV Insertion STAT Care 07/21/24 09:21 Active CHEST 2 VIEWS (PA AND LAT) Stat Exams 07/21/24 09:21 Taken CBC W DIFF Stat Lab 07/21/24 10:00 Completed CMP Stat Lab 07/21/24 10:00 Completed FREE TRIODOTHYRONINE Stat Lab 07/21/24 10:00 Completed NT PRO BNPII Stat Lab 07/21/24 10:00 Completed TROPONIN Stat Lab 07/21/24 10:00 Completed TSH, 3RD Generation Stat Lab 07/21/24 10:00 Completed UA W/RFX UR CULTURE Stat Lab 07/21/24 10:24 Completed Medication Summary Discontinued Medications Generic Name Dose Route Start Last Admin Trade Name Zahra PRN Reason Stop Dose Admin Sodium Chloride 1,000 mls @ 999 mls/hr 07/21/24 09:21 07/21/24 11:05 Sodium Chloride 0.9% 1000 Ml IV 07/21/24 10:21 Infused .Q1H1M STA Infusion Sodium Chloride Confirm 07/21/24 09:40 Sodium Chloride 0.9% 1000 Ml Administered 07/21/24 09:41 Dose 1,000 mls @ ud .ROUTE .STK-MED ONE Labetalol HCl 10 mg 07/21/24 09:21 07/21/24 09:45 Labetalol Hcl 20 Mg/4 Ml Disp.Syringe IV 07/21/24 09:22 10 mg STAT ONE Administration Labetalol HCl Confirm 07/21/24 09:40 Labetalol Hcl 20 Mg/4 Ml Disp.Syringe Administered 07/21/24 09:41 Dose 20 mg IV .STK-MED ONE Spironolactone 25 mg 07/21/24 09:29 07/21/24 09:57 Spironolactone 25 Mg Tablet PO 07/21/24 09:30 Not Given ONCE ONE Lab/Rad Data: Laboratory Result Diagrams 07/21/24 10:00 07/21/24 10:00 Laboratory Results 07/21/24 07/21/24 07/21/24 Range/Units 10:24 10:00 10:00 WBC (3.98-10.04) x10^3/uL RBC (3.93-5.22) x10^6/uL Hgb (11.2-15.7) g/dL Hct (34.1-44.9) % MCV (79.4-94.8) fL MCH (25.6-32.2) pg MCHC (32.2-35.5) g/dL RDW (11.7-14.4) % Plt Count (182-369) x10^3/uL MPV (9.4-12.3) fL Gran % (34.0-71.1) % Immature Gran % (Auto) (0.001-0.429) % Nucleat RBC Rel Count (0.00-0.2) % Eos # (Auto) (0.04-0.36) x10^3/uL Immature Gran # (Auto) (0.001-0.031) x10^3u/L Absolute Lymphs (auto) (1.18-3.74) x10^3/uL Absolute Monos (auto) (0.24-0.86) x10^3/uL Absolute Nucleated RBC (0.00-0.012) x10^3u/L Lymphocytes % (19.3-51.7) % Monocytes % (4.7-12.5) % Eosinophils % (0.7-5.8) % Basophils % (0.1-1.2) % Absolute Granulocytes (1.56-6.13) x10^3/uL Basophils # (0.01-0.08) x10^3/uL Sodium (135-145) mmol/L Potassium (3.5-5.1) mmol/L Chloride (98-107) mmol/L Carbon Dioxide (22-30) mmol/L Anion Gap (5-15) MEQ/L BUN (7-17) mg/dL Creatinine (0.52-1.04) mg/dL Estimated GFR ML/MIN Glucose (74-106) mg/dL Calcium (8.4-10.2) mg/dL Total Bilirubin (0.2-1.3) mg/dL AST (14-36) U/L ALT (0-35) U/L Alkaline Phosphatase (38-126) U/L Troponin I (0.000-0.033) ng/mL NT-Pro-B Natriuret Pep 59.9 (<300) pg/mL Serum Total Protein (6.3-8.2) g/dL Albumin (3.5-5.0) g/dL Free T4 1.20 (0.78-2.19) ng/dL Free T3 pg/mL 3.35 (2.77-5.27) pg/mL TSH 3rd Generation (0.470-4.680) mIU/L Urine Color Yellow (Yellow) Urine Appearance Clear (Clear) Urine pH 5.5 (4.6-8.0) Ur Specific [place] <=1.005 (1.005-1.030) Urine Protein Negative (Negative) Urine Glucose (UA) Negative (Negative) mg/dL Urine Ketones Negative (Negative) Urine Blood Negative (Negative) Urine Nitrite Negative (Negative) Urine Bilirubin Negative (Negative) Urine Urobilinogen 0.2 (0.2) mg/dL Ur Leukocyte Esterase Trace A (Negative) U Hyaline Cast (Auto) NONE SEEN (0-2) /LPF Urine Microscopic RBC 0-2 (0-5) /HPF Urine Microscopic WBC 3-5 (0-5) /HPF Ur Epithelial Cells None Seen (None Seen) /HPF Urine Bacteria None Seen (None Seen) /HPF Urine Culture Reflexed NO (NO) 07/21/24 07/21/24 Range/Units 10:00 10:00 WBC 6.1 (3.98-10.04) x10^3/uL RBC 5.10 (3.93-5.22) x10^6/uL Hgb 13.6 (11.2-15.7) g/dL Hct 41.7 (34.1-44.9) % MCV 81.8 (79.4-94.8) fL MCH 26.7 (25.6-32.2) pg MCHC 32.6 (32.2-35.5) g/dL RDW 14.2 (11.7-14.4) % Plt Count 368 (182-369) x10^3/uL MPV 10.6 (9.4-12.3) fL Gran % 56.1 (34.0-71.1) % Immature Gran % (Auto) 0.2 (0.001-0.429) % Nucleat RBC Rel Count 0.0 (0.00-0.2) % Eos # (Auto) 0.12 (0.04-0.36) x10^3/uL Immature Gran # (Auto) 0.01 (0.001-0.031) x10^3u/L Absolute Lymphs (auto) 2.17 (1.18-3.74) x10^3/uL Absolute Monos (auto) 0.32 (0.24-0.86) x10^3/uL Absolute Nucleated RBC 0.00 (0.00-0.012) x10^3u/L Lymphocytes % 35.5 (19.3-51.7) % Monocytes % 5.2 (4.7-12.5) % Eosinophils % 2.0 (0.7-5.8) % Basophils % 1.0 (0.1-1.2) % Absolute Granulocytes 3.43 (1.56-6.13) x10^3/uL Basophils # 0.06 (0.01-0.08) x10^3/uL Sodium 137 (135-145) mmol/L Potassium 4.1 (3.5-5.1) mmol/L Chloride 104 (98-107) mmol/L Carbon Dioxide 23 (22-30) mmol/L Anion Gap 14.2 (5-15) MEQ/L BUN 15 (7-17) mg/dL Creatinine 0.99 (0.52-1.04) mg/dL Estimated GFR 70.3 ML/MIN Glucose 117 H (74-106) mg/dL Calcium 9.3 (8.4-10.2) mg/dL Total Bilirubin 0.30 (0.2-1.3) mg/dL AST 28 (14-36) U/L ALT 23 (0-35) U/L Alkaline Phosphatase 74 (38-126) U/L Troponin I < 0.012 (0.000-0.033) ng/mL NT-Pro-B Natriuret Pep (<300) pg/mL Serum Total Protein 7.7 (6.3-8.2) g/dL Albumin 4.2 (3.5-5.0) g/dL Free T4 (0.78-2.19) ng/dL Free T3 pg/mL (2.77-5.27) pg/mL TSH 3rd Generation 2.077 (0.470-4.680) mIU/L Urine Color (Yellow) Urine Appearance (Clear) Urine pH (4.6-8.0) Ur Specific [place] (1.005-1.030) Urine Protein (Negative) Urine Glucose (UA) (Negative) mg/dL Urine Ketones (Negative) Urine Blood (Negative) Urine Nitrite (Negative) Urine Bilirubin (Negative) Urine Urobilinogen (0.2) mg/dL Ur Leukocyte Esterase (Negative) U Hyaline Cast (Auto) (0-2) /LPF Urine Microscopic RBC (0-5) /HPF Urine Microscopic WBC (0-5) /HPF Ur Epithelial Cells (None Seen) /HPF Urine Bacteria (None Seen) /HPF Urine Culture Reflexed (NO) - Progress Progress: improved Counseled pt/family regarding: lab results, diagnosis, need for follow-up, rad results Medical Desision Making - Diagnostic Testing Diagnostic test were ordered, analyzed, and reviewed by me: Yes Radiological Interpretation: Interpreted by me, Reviewed by me - Risk of complications Low Risk: Low risk of morbidity from additional dx testing or treatment - Departure Departure Disposition: Home Clinical Impression: Blood pressure alteration, Tachycardia, Hyperaldosteronism, unspecified Condition: Stable Critical Care Time: No Referrals: ALMA DELIA SEE MD [Primary Care Provider] - Follow up/PCP as directed Additional Instructions: Discharge/Care Plan ANUJA CHONG was seen on 07/21/24 in the Emergency Room. The patient was counseled regarding Diagnosis,Lab results, Imaging studies, need for follow up and when to return to the Emergency Room. Prescriptions given: Discharge Note I have spoken with the patient and/or caregivers. I have explained the patient's condition, diagnosis and treatment plan based on the information available to me at this time. I have answered the patient's and/or caregiver's questions and addressed any concerns. The patient and/or caregivers have as good understanding of the patient's diagnosis, condition and treatment plan as can be expected at this point. The vital signs have been stable. The patient's condition is stable and appropriate for discharge from the emergency department. The patient will pursue further outpatient evaluation with the primary care physician or other designated or consulting physician as outlined in the dischar ge instructions. The patient and/or caregivers are agreeable to this plan of care and follow-up instructions have been explained in detail. The patient and/or caregivers have received these instruction. The patient/and or caregivers are aware that any significant change in condition or worsening of symptoms should prompt an immediate return to this or the closest emergency department or call 911. ANUJA CHONG was seen on 07/21/24 n the Emergency Room. At that time you were treated for an emergent condition, during your visit Laboratory, Radiology and/or other procedures may have been ordered. It is very important that you follow-up with your Primary Care Physician ALMA DELIA SEE within the next 24-48 hours to review your Emergency Room visit and the final results of testing that was ordered. Some test results such as Urine Cultures, Blood Cultures, and other cultures if ordered will not be finalized for 24-48 hours. If you do not have a Primary Care Provider please call the medical records depa rtment at [phone] ext [phone] to obtain a copy of your results or you may sign into our patient portal to obtain these results by visiting us @ [email or web address] and completing the following steps: 1. Click on the Patient Portal link 2. Click the Patient Self Enrollment Link to complete the enrollment form and entering your 3. Once the enrollment form is completed you will receive an email with a temporary ID and password at the email address you provided. 4. Next choose a user name and password. Your user name must be at least 4 characters long and your password must be at least 4 characters long. 5. Choose a security question from the list and provide your answer to the question. If you already have signed into the Health Portal you may access your Health Care Information 27/03 by the following steps: 1. Login to our website @ [email or web address] 2. Enter your original user name and password. FAQS The [facility] Health Portal is an online tool that contains your Lab Results, Radiology Reports, Visit History, Discharge Instructions and Health Summary Lab and Radiology Results will not be available for 72 hours on the portal. The Portal is a secure site, passwords are encryted and URLs are re-written so they cannot be copied and pasted. You and authorized family members are the only ones who can access your Portal. Also there is a timeout feature that protects your information if you leave the Portal page open. If you have technical difficulty please use the Contact Us link on the page this will allow you to submit any questions you have regarding the Portal or you may contact the Medical Record Department at [phone] ext [phone].
[2024-07-21] MEDS ORDERED: Sodium Chloride 0.9% 1000 ML 1,000 ML ONE (09:40)
[2024-07-21] MEDS ORDERED: TRANDATE 20 MG/4 ML SYRINGE IV ONE (09:40)
[2024-07-21] MEDS: Sodium Chloride 0.9% 1000 ML 1,000 ML IV STA (09:45)
[2024-07-21] MEDS: TRANDATE 20 MG/4 ML SYRINGE IV ONE (09:45)
[2024-07-21] MEDS: Aldactone 25 MG PO ONE (09:57)
[2024-07-21 10:15] LABS: Absolute Neutrophil Ct (ANC) 3.43 x10^3/uL (1.56-6.13); Basophil (Absolute #) 0.06 x10^3/uL (0.01-0.08); Eosinophil (Absolute #) 0.12 x10^3/uL (0.04-0.36); Hematocrit 41.7 % (34.1-44.9); Hemoglobin 13.6 g/dL (11.2-15.7); IMMATURE GRAN # 0.01 x10^3u/L (0.001-0.031); IMMATURE GRAN % 0.2 % (0.001-0.429); Lymphocyte (Absolute #) 2.17 x10^3/uL (1.18-3.74); Lymphocytes % 35.5 % (19.3-51.7); Mean Cell Volume 81.8 fL (79.4-94.8); Mean Corpuscular Hemoglobin 26.7 pg (25.6-32.2); Mean Corpuscular Hgb Concent. 32.6 g/dL (32.2-35.5); Mean Platelet Volume 10.6 fL (9.4-12.3); Monocyte (Absolute #) 0.32 x10^3/uL (0.24-0.86); Monocytes % 5.2 % (4.7-12.5); Neutrophil % 56.1 % (34.0-71.1); Platelet Count 368 x10^3/uL (182-369); Red Cell Distribution Width 14.2 % (11.7-14.4); White Blood Count 6.1 x10^3/uL (3.98-10.04)
[2024-07-21 10:51] LABS: FREE TRIODOTHYRONINE 3.35 pg/mL (2.77-5.27); NT PRO BNPII 59.9 pg/mL (<300)
[2024-07-21 11:04] LABS: ALBUMIN 4.2 g/dL (3.5-5.0); ALKALINE PHOSPHATASE 74 U/L (38-126); ANION GAP 14.2 MEQ/L (5-15); BLOOD UREA NITROGEN 15 mg/dL (7-17); CHLORIDE 104 mmol/L (98-107); Calcium 9.3 mg/dL (8.4-10.2); Carbon Dioxide 23 mmol/L (22-30); Creatinine 1 0.99 mg/dL (0.52-1.04); EST GLOMERULAR FILTRATION RATE 70.3 ML/MIN; Glucose 117 mg/dL (74-106); Potassium 4.1 mmol/L (3.5-5.1); SGOT/AST 28 U/L (14-36); SGPT/ALT 23 U/L (0-35); SODIUM 137 mmol/L (135-145); TROPONIN < 0.012 ng/mL (0.000-0.033); TSH, 3RD Generation 2.077 mIU/L (0.470-4.680); Total Protein 7.7 g/dL (6.3-8.2)
[2024-07-21 11:20] VITALS: BP 135/90; PULSE 72; RESP 15
[2024-07-21 11:43] VITALS: O2SAT 100
[2024-07-21 11:52] LABS: Appearance Clear (Clear); Bacteria None Seen /HPF (None Seen); Bilirubin Negative (Negative); Blood Negative (Negative); Epithelial Cells None Seen /HPF (None Seen); Glucose, Urine Negative (Negative); Hyaline Casts NONE SEEN /LPF (0-2); Ketones Negative (Negative); Leukocyte Esterase Trace (Negative); Nitrite Negative (Negative); Ph 5.5 (4.6-8.0); Protein,Urine Dip Negative (Negative); RBC 0-2 /HPF (0-5); Specific Gravity <=1.005 (1.005-1.030); Urobilinogen 0.2 mg/dL (0.2)
--- NOTE | 2024-07-21 18:45 | XRAY ---
Indication: Dizziness. Comparison: October 12, 2023 PA/lateral chest again demonstrates normal heart, lungs, and bony thorax.
[2024-07-23 10:04] LABS: Thyroid Pereoxidase (TPO) Ab 12 IU/mL (0-34)
== END 2024-07-21 12:16 | disposition home or self-care (01) ==
LOC: ED 09:02
DX: I10 Essential (primary) hypertension (principal); R42 Dizziness and giddiness; R51.9 Headache, unspecified; R00.0 Tachycardia, unspecified; E26.9 Hyperaldosteronism, unspecified
CPT/HCPCS: 36415; 71046; 80053; 81001; 83880; 84402; 84439; 84443; 84481; 84484; 85025; 86376; 93005; 93041; 96374; 96375; 99284; 99285

== ENCOUNTER 2024-11-01 13:16 | Emergency (ER) | payer OTHER ==
--- NOTE | 2024-11-01 13:19 | ERPHSYRPT ---
- History of Present Illness Time Seen by Provider: 11/01/24 13:18 Source: patient, family Exam Limitations: no limitations Physician History: This is a 49-year-old white female patient who presents with weakness and fatigue. Patient has a history of hyperaldosteronism and has frequent episodes just like this. She becomes so fatigued and tired that she has to go relatively quickly close her eyes and lay down. She has had episodes occur in the last 48 hours. She became concerned when she had another episode prior to arrival while she was driving. Patient does have a history of hypertension and is on spironolactone. She denies chest pain. She denies shortness of breath. She understands her disease process as well as the management that works for her. She states that what works best for her is infusion of normal saline solution. Patient has a history of hypothyroidism, hypertension, depression, chronic renal disease, migraine headaches and diabetes. Timing/Duration: day(s) (2), worse Severity: mild (Moderate) Character of Deficits: none Deficits: no difficulties Baseline/Normal Cognition: alert oriented x 3 Current Cognition: alert oriented x 3 Baseline Gait: walks w/o assistance Associated Symptoms: fatigue, weakness, No loss of consciousness, No nausea, No vomiting, No chest pain, No headache Allergies/Adverse Reactions: Iodinated Contrast Media [Iodinated Contrast Media - IV Dye] Allergy (Mild, Verified 11/01/24 13:29) Hives shellfish derived Allergy (Verified 11/01/24 13:29) promethazine HCl [From Phenergan] Adverse Reaction (Unknown, Verified 11/01/24 13:29) syncopal, drops B/P Home Medications: Levothyroxine Sodium [Synthroid] 75 mcg PO DAILY 05/07/13 [History] Venlafaxine HCl ER 75 mg [Effexor XR 75 MG] 75 mg PO DAILY 05/07/13 [History] Spironolactone 25 mg [Aldactone 25 MG] 25 mg PO BID 10/05/23 [History] Testosterone 10 gm TD UD 07/21/24 [History] Tirzepatide [Mounjaro] 7.5 mg SQ WEEKLY 07/21/24 [History] Clonidine HCl 0.1 mg [Clonidine 0.1 mg Tablet] 0.1 mg PO UD PRN 11/01/24 [History] Estradiol/Norethindrone Acet [Mimvey 1-0.5 mg Tablet] 1 each PO DAILY 11/01/24 [History] Hx Tetanus, Diphtheria Vaccination/Date Given: Yes Hx Influenza Vaccination/Date Given: No Hx Pneumococcal Vaccination/Date Given: No Travel Risk - International Travel Have you traveled outside of the country in past 3 weeks: No - Emerging Infectious Disease Are you exhibiting symptoms associated with any current EIDs: No - Review of Systems Constitutional: Weakness Eyes: No Symptoms Ears, Nose, & Throat: No Symptoms Respiratory: No Symptoms Cardiac: No Symptoms Abdominal/Gastrointestinal: No Symptoms Genitourinary Symptoms: No Symptoms Musculoskeletal: No Symptoms Skin: No Symptoms Neurological: No Symptoms Psychological: No Symptoms Endocrine: No Symptoms Hematologic/Lymphatic: No Symptoms Immunological/Allergic: No Symptoms All Other Systems: Reviewed and Negative - Past Medical History Pertinent Past Medical History: Yes Neurological History: Migraines ENT History: No Pertinent History Cardiac History: High Cholesterol, Hypertension Respiratory History: No Pertinent History Endocrine Medical History: Diabetes Type II, Hypothyroidism, Other Musculoskeletal History: No Pertinent History GI Medical History: Gallbladder Disease History: Renal Disease Psycho-Social History: No Pertinent History Female Reproductive Disorders: No Pertinent History Other Medical History: silent migraines, " metabolic syndrome," hyperaldosteronism - Past Surgical History Past Surgical History: Yes Neuro Surgical History: No Pertinent History Cardiac: No Pertinent History Respiratory: No Pertinent History Gastrointestinal: Cholecystectomy Genitourinary: No Pertinent History Musculoskeletal: No Pertinent History Female Surgical History: Tubal Ligation, Other Other Surgical History: BREAST REDUCTION,LAPS FOR OVARIAN CYST. - Female History Hx Last Menstrual Period: getting ready to start and is on BC - Social History Smoking Status: Former smoker Exposure to second hand smoke: No Drug Use: none Patient Lives Alone: No - Social Determinants of Health Will the patient participate in the screening: Yes Do you worry about a steady place to live?: No In the past 12 months,have you had to go without utilities?: No Transportation Issues: No Has anyone in your support network made you feel unsafe?: No Have you or anyone in your house had to go w/o enough food: No - Nursing Vital Signs Nursing Vital Signs: Initial Vital Signs Temperature 97.9 F 11/01/24 13:23 Pain Scale Pain Intensity 0 - Topher Coma Scale Best Eye Response (Topher): (4) open spontaneously Best Verbal Response (Topher): (5) oriented Best Motor Response (Speculator): (6) obeys commands Speculator Total: 15 - Physical Exam General Appearance: no apparent distress, alert, anxiety, thin Eye Exam: bilateral eye: normal inspection, PERRL, EOMI Ears, Nose, Throat Exam: normal ENT inspection, moist mucous membranes Neck Exam: normal inspection, non-tender, supple, full range of motion Respiratory: normal breath sounds, lungs clear, airway intact, No chest tenderness, No respiratory distress Cardiovascular: regular rate/rhythm, normal heart sounds, normal peripheral pulses Gastrointestinal: soft, normal bowel sounds, No tenderness Pelvic Exam: not done Rectal Exam: not done Back Exam: normal inspection, normal range of motion, No CVA tenderness Extremity Exam: normal inspection, normal range of motion, pelvis stable Mental Status: alert, oriented x 3, cooperative clinical audiologist Exam: normal hearing, normal speech, PERRL, tongue midline Coordination/Gait: normal gait, normal cerebellar function Motor/Sensory: no motor deficit, no sensory deficit Skin Exam: normal color, warm, dry SpO2 Interpretation: normal O2 Delivery: Room Air - Course Nursing assessment & vital signs reviewed: Yes EKG Interpreted by Me: RATE (67), Sinus Rhythm, NORMAL AXIS, NORMAL INTERVALS, NORMAL QRS, NORMAL ST-T, Other (TC is 430. There is no evidence of acute ischemia on this twelve-lead EKG.) Ordered Tests: Active Orders 24 hr Category Date Time Status EKG-ER Only STAT Care 11/01/24 14:09 Active IV Insertion STAT Care 11/01/24 14:09 Active CBC W DIFF Stat Lab 11/01/24 14:16 Completed CMP Stat Lab 11/01/24 14:16 Completed MAG [MAGNESIUM] Stat Lab 11/01/24 14:16 Completed TROPONIN Q4H Lab 11/01/24 14:16 Completed TROPONIN Q4H Lab 11/01/24 18:15 Ordered TROPONIN Q4H Lab 11/01/24 22:15 Ordered UA W/RFX UR CULTURE Stat Lab 11/01/24 14:00 Completed Medication Summary Generic Name Dose Route Start Last Admin Trade Name Freq PRN Reason Stop Dose Admin Sodium Chloride 500 mls @ 500 mls/hr 11/01/24 15:38 Sodium Chloride 0.9% 500 Ml IV 11/01/24 16:37 .Q1H ONE Discontinued Medications Generic Name Dose Route Start Last Admin Trade Name Zahra PRN Reason Stop Dose Admin Sodium Chloride 1,000 mls @ 999 mls/hr 11/01/24 14:09 11/01/24 14:42 Sodium Chloride 0.9% 1000 Ml IV 11/01/24 15:09 999 mls/hr .Q1H1M STA Administration Sodium Chloride Confirm 11/01/24 14:39 Sodium Chloride 0.9% 1000 Ml Administered 11/01/24 14:40 Dose 1,000 mls @ ud .ROUTE .STK-MED ONE Lab/Rad Data: Laboratory Result Diagrams 11/01/24 14:16 11/01/24 14:16 Laboratory Results 11/01/24 11/01/24 11/01/24 Range/Units 14:16 14:16 14:16 WBC 5.3 (3.98-10.04) x10^3/uL RBC 4.77 (3.93-5.22) x10^6/uL Hgb 13.5 (11.2-15.7) g/dL Hct 40.0 (34.1-44.9) % MCV 83.9 (79.4-94.8) fL MCH 28.3 (25.6-32.2) pg MCHC 33.8 (32.2-35.5) g/dL RDW 14.3 (11.7-14.4) % Plt Count 324 (182-369) x10^3/uL MPV 10.1 (9.4-12.3) fL Gran % 53.2 (34.0-71.1) % Immature Gran % (Auto) 0.2 (0.001-0.429) % Nucleat RBC Rel Count 0.0 (0.00-0.2) % Eos # (Auto) 0.14 (0.04-0.36) x10^3/uL Immature Gran # (Auto) 0.01 (0.001-0.031) x10^3u/L Absolute Lymphs (auto) 1.83 (1.18-3.74) x10^3/uL Absolute Monos (auto) 0.46 (0.24-0.86) x10^3/uL Absolute Nucleated RBC 0.00 (0.00-0.012) x10^3u/L Lymphocytes % 34.3 (19.3-51.7) % Monocytes % 8.6 (4.7-12.5) % Eosinophils % 2.6 (0.7-5.8) % Basophils % 1.1 (0.1-1.2) % Absolute Granulocytes 2.83 (1.56-6.13) x10^3/uL Basophils # 0.06 (0.01-0.08) x10^3/uL Sodium 139 (135-145) mmol/L Potassium 4.2 (3.5-5.1) mmol/L Chloride 102 (98-107) mmol/L Carbon Dioxide 28 (22-30) mmol/L Anion Gap 12.6 (5-15) MEQ/L BUN 14 (7-17) mg/dL Creatinine 0.93 (0.52-1.04) mg/dL Estimated GFR 75.4 ML/MIN Glucose 76 (74-106) mg/dL Calcium 9.9 (8.4-10.2) mg/dL Magnesium 2.0 (1.6-2.3) mg/dL Total Bilirubin 0.40 (0.2-1.3) mg/dL AST 25 (14-36) U/L ALT 15 (0-35) U/L Alkaline Phosphatase 64 (38-126) U/L Troponin I < 0.012 (0.000-0.033) ng/mL Serum Total Protein 7.2 (6.3-8.2) g/dL Albumin 4.5 (3.5-5.0) g/dL Urine Color (Yellow) Urine Appearance (Clear) Urine pH (4.6-8.0) Ur Specific [place] (1.005-1.030) Urine Protein (Negative) Urine Glucose (UA) (Negative) mg/dL Urine Ketones (Negative) Urine Blood (Negative) Urine Nitrite (Negative) Urine Bilirubin (Negative) Urine Urobilinogen (0.2) mg/dL Ur Leukocyte Esterase (Negative) U Hyaline Cast (Auto) (0-2) /LPF Urine Microscopic RBC (0-5) /HPF Urine Microscopic WBC (0-5) /HPF Ur Epithelial Cells (None Seen) /HPF Urine Bacteria (None Seen) /HPF Urine Culture Reflexed (NO) 11/01/24 Range/Units 14:00 WBC (3.98-10.04) x10^3/uL RBC (3.93-5.22) x10^6/uL Hgb (11.2-15.7) g/dL Hct (34.1-44.9) % MCV (79.4-94.8) fL MCH (25.6-32.2) pg MCHC (32.2-35.5) g/dL RDW (11.7-14.4) % Plt Count (182-369) x10^3/uL MPV (9.4-12.3) fL Gran % (34.0-71.1) % Immature Gran % (Auto) (0.001-0.429) % Nucleat RBC Rel Count (0.00-0.2) % Eos # (Auto) (0.04-0.36) x10^3/uL Immature Gran # (Auto) (0.001-0.031) x10^3u/L Absolute Lymphs (auto) (1.18-3.74) x10^3/uL Absolute Monos (auto) (0.24-0.86) x10^3/uL Absolute Nucleated RBC (0.00-0.012) x10^3u/L Lymphocytes % (19.3-51.7) % Monocytes % (4.7-12.5) % Eosinophils % (0.7-5.8) % Basophils % (0.1-1.2) % Absolute Granulocytes (1.56-6.13) x10^3/uL Basophils # (0.01-0.08) x10^3/uL Sodium (135-145) mmol/L Potassium (3.5-5.1) mmol/L Chloride (98-107) mmol/L Carbon Dioxide (22-30) mmol/L Anion Gap (5-15) MEQ/L BUN (7-17) mg/dL Creatinine (0.52-1.04) mg/dL Estimated GFR ML/MIN Glucose (74-106) mg/dL Calcium (8.4-10.2) mg/dL Magnesium (1.6-2.3) mg/dL Total Bilirubin (0.2-1.3) mg/dL AST (14-36) U/L ALT (0-35) U/L Alkaline Phosphatase (38-126) U/L Troponin I (0.000-0.033) ng/mL Serum Total Protein (6.3-8.2) g/dL Albumin (3.5-5.0) g/dL Urine Color Yellow (Yellow) Urine Appearance Clear (Clear) Urine pH 5.5 (4.6-8.0) Ur Specific [place] 1.025 (1.005-1.030) Urine Protein Negative (Negative) Urine Glucose (UA) Negative (Negative) mg/dL Urine Ketones Trace A (Negative) Urine Blood Negative (Negative) Urine Nitrite Negative (Negative) Urine Bilirubin Negative (Negative) Urine Urobilinogen 0.2 (0.2) mg/dL Ur Leukocyte Esterase Trace A (Negative) U Hyaline Cast (Auto) NONE SEEN (0-2) /LPF Urine Microscopic RBC 3-5 (0-5) /HPF Urine Microscopic WBC 6-10 A (0-5) /HPF Ur Epithelial Cells Few (None Seen) /HPF Urine Bacteria Few A (None Seen) /HPF Urine Culture Reflexed NO (NO) - Progress Progress: improved, re-examined Progress Note: 11/01/24 14:25 My medical decision making and the assignment of moderate complexity to this patient's medical issue today is based on review of the patient's past medical history, reviewed patient's medication list, reviewed patient drug allergy list, history present illness and physical findings on examination. The workup in this patient includes placement of an intravenous line, infusion of normal saline solution, CBC, CMP, magnesium level, troponin level and twelve-lead EKG. The workup performed is based on the patient's knowledge of her signs symptoms and management. She only wanted to use studies performed. We ordered the above and we will reassess her. Differential diagnoses include but is not limited to dehydration, electrolyte abnormalities myocardial infarction, arrhythmia 11/01/24 15:44 I reexamined the patient. Her systolic blood pressure is now in the 160s. She states she is feeling much better. I reviewed the patient's laboratory data results that I interpreted. Based on the laboratory data results, there are no acute, emergent medical issues. She was mildly dehydrated. Patient will take her own spironolactone at this time. She is due for it and she has it with her. We also agreed that we would provide her with another 500 mL of normal saline bolus. She may then be discharged to home. 11/01/24 15:46 Counseled pt/family regarding: lab results, diagnosis, need for follow-up Medical Desision Making - Diagnostic Testing Diagnostic test were ordered, analyzed, and reviewed by me: Yes - Risk of complications Low Risk: Low risk of morbidity from additional dx testing or treatment - Departure Departure Disposition: Home Clinical Impression: Weakness, Mild dehydration Condition: Stable Critical Care Time: No Referrals: ALMA DELIA SEE MD [Primary Care Provider] - Follow up/PCP as directed Additional Instructions: Drink plenty of clear liquids. Do not advance your diet until you are drinking clear liquids well. Call your primary care provider today, 11/01/2024, to make arrangements for follow-up appointment to be seen in the next 3 to 5 days. Take all your medications as prescribed.
[2024-11-01 13:29] VITALS: TEMP 97.9
[2024-11-01 14:24] LABS: Appearance Clear (Clear); Bacteria Few /HPF (None Seen); Bilirubin Negative (Negative); Blood Negative (Negative); Epithelial Cells Few /HPF (None Seen); Glucose, Urine Negative (Negative); Hyaline Casts NONE SEEN /LPF (0-2); Ketones Trace (Negative); Leukocyte Esterase Trace (Negative); Nitrite Negative (Negative); Ph 5.5 (4.6-8.0); Protein,Urine Dip Negative (Negative); Specific Gravity 1.025 (1.005-1.030); Urobilinogen 0.2 mg/dL (0.2)
[2024-11-01 14:32] VITALS: PULSE 68; RESP 16
[2024-11-01 14:32] LABS: Absolute Neutrophil Ct (ANC) 2.83 x10^3/uL (1.56-6.13); BASOPHIL % 1.1 % (0.1-1.2); Basophil (Absolute #) 0.06 x10^3/uL (0.01-0.08); Eosinophil % 2.6 % (0.7-5.8); Eosinophil (Absolute #) 0.14 x10^3/uL (0.04-0.36); Hemoglobin 13.5 g/dL (11.2-15.7); IMMATURE GRAN # 0.01 x10^3u/L (0.001-0.031); IMMATURE GRAN % 0.2 % (0.001-0.429); Lymphocyte (Absolute #) 1.83 x10^3/uL (1.18-3.74); Lymphocytes % 34.3 % (19.3-51.7); Mean Cell Volume 83.9 fL (79.4-94.8); Mean Corpuscular Hemoglobin 28.3 pg (25.6-32.2); Mean Corpuscular Hgb Concent. 33.8 g/dL (32.2-35.5); Mean Platelet Volume 10.1 fL (9.4-12.3); Monocyte (Absolute #) 0.46 x10^3/uL (0.24-0.86); Monocytes % 8.6 % (4.7-12.5); Neutrophil % 53.2 % (34.0-71.1); Platelet Count 324 x10^3/uL (182-369); Red Blood Count 4.77 x10^6/uL (3.93-5.22); Red Cell Distribution Width 14.3 % (11.7-14.4); White Blood Count 5.3 x10^3/uL (3.98-10.04)
[2024-11-01] MEDS ORDERED: Sodium Chloride 0.9% 1000 ML 1,000 ML ONE (14:39)
[2024-11-01] MEDS: Sodium Chloride 0.9% 1000 ML 1,000 ML IV STA (14:42)
[2024-11-01 14:47] LABS: ALBUMIN 4.5 g/dL (3.5-5.0); ANION GAP 12.6 MEQ/L (5-15); BILIRUBIN,TOTAL 0.4 mg/dL (0.2-1.3); Calcium 9.9 mg/dL (8.4-10.2); Creatinine 1 0.93 mg/dL (0.52-1.04); EST GLOMERULAR FILTRATION RATE 75.4 ML/MIN; Potassium 4.2 mmol/L (3.5-5.1); Total Protein 7.2 g/dL (6.3-8.2)
[2024-11-01] MEDS ORDERED: Sodium Chloride 0.9% 500 ML 500 ML IV ONE (15:48)
[2024-11-01] MEDS: Sodium Chloride 0.9% 500 ML 500 ML IV ONE (15:49)
[2024-11-01 16:02] VITALS: BP 171/97; O2SAT 99
== END 2024-11-01 16:59 | disposition home or self-care (01) ==
LOC: ED 13:16
DX: R53.1 Weakness (principal); E86.0 Dehydration; R53.83 Other fatigue; I12.9 Hypertensive chronic kidney disease with stage 1 through stage 4 chronic kidney disease, or unspecified chronic kidney disease; E11.22 Type 2 diabetes mellitus with diabetic chronic kidney disease; N18.9 Chronic kidney disease, unspecified; Z79.85 Long-term (current) use of injectable non-insulin antidiabetic drugs; Z79.899 Other long term (current) drug therapy
CPT/HCPCS: 36415; 80053; 81001; 83735; 84484; 85025; 93005; 96360; 99284